=== PATIENT | female | born 1980 | race Caucasian/White ===

== ENCOUNTER 2016-08-07 20:47 | Emergency (ER) | payer OTHER ==
[~2016-08-07] VITALS: Ht 160 cm; Wt 112.0 kg
[~2016-08-07 20:47] MED LIST: ALBU17AE3 IH; ALPR1TAB2 PO; AMIT25TA9 PO; AMOX-358 PO; AMOX500C2 PO; ARIP5TAB12 PO; AZIT-21 PO; CEFD300C PO; CEFD300C3 PO; CEPH500C PO; CETI10CA PO; CIPR-225 PO; CIPR100T; CIPR500T4 PO; CLCX200C; COLE1TAB PO; CPR500T PO; CYCL10TA9 PO; D-ME118S33 PO; D50KC PO; DICY20TA57 PO; DOCU100T7 PO; FERR-57 PO; FEXO180T PO; FLUT16SP22 NS; HYDR115S2 PO; HYDR1TAB PO; HYDR1TAB66 PO; HYDR1TAB8 PO; HYOS0.1217 PO; IBP200T PO; IBP800T PO; IBUP-1780 PO; KETO10TA PO; LEVO500T2 PO; LISI-552 PO; LISI10TA PO; LISI40TA PO; LORA1TAB59 PO; LRT10T PO; MECL-124 PO; MELO15TA14 PO; METF-144; METH4TAB PO; MNTL10T PO; MONT10TA21 PO; NAPR-243 PO; NITR-65 PO; OMEP40CA36 PO; ONDA-42 SL; ONDA4TAB8 PO; ONDA8TAB9 PO; OXYC10TA8; OXYM15MI4 NS; PHEN-639 PO; PHEN100T26 PO; PHEN200T27 PO; PNT40TEC PO; PRD20T PO; PRM25T PO; PROM25SU43 RC; RANI75TA30 PO; ROPI1TAB2 PO; SUCR1TAB PO; SULF-222 PO; SULF1TAB35 PO; SULF1TAB38 PO; TAMS0.4C98 PO; TRAM-21 PO; TRAM-42 PO; TRAM50TA2 PO; TRM50T PO; TRZ50T PO; VORT10TA PO; [UNRECOGNIZED DRUG - CODE] PO
[2016-08-07] MEDS ORDERED: RISP1TAB3 PO (21:02)
[2016-08-07] MEDS ORDERED: OMEP20TA7 PO (21:02)
[2016-08-07] MEDS ORDERED: METF500T4 PO (21:02)
[2016-08-07] MEDS ORDERED: METO-351 PO (21:02)
--- NOTE | 2016-08-07 21:10 | ED Abdominal Pain ---
General Chief Complaint: Abdominal/GI Problems Stated Complaint: ABD PAIN Nursing Triage Note: "ulcer pain" worse today Sepsis Screen: No Definite Risk Source of Information: Patient Exam Limitations: No Limitations History of Present Illness Time Seen By Provider: 21:08 Initial Comments To ER with reports of epigastric abdominal pain. This is been going on for about 2 months. She denies any bowel changes but reports nausea and vomiting. She states that she ate dinner several hours ago and still feels as though she is full. She is diabetic. She was told at a hospital in [place] that she had ulcers. She's been taking medication for that but she ultimately stopped because she did not feel that they were helping and in fact were making her worse. Timing/Duration: Other Severity/Quality: Moderate Location: Epigastric Radiation: No Radiation Associated Symptoms: Nausea/Vomiting Allergies and Home Medications Allergies Coded Allergies: azithromycin (Verified Allergy, Unknown, 08/05/15) aspirin (Verified Adverse Reaction, Intermediate, VOMITING, 10/26/11) acetaminophen (Unverified Adverse Reaction, Unknown, 07/26/14) PT IS NOT SUPPOSE TO TAKE TYLENOL DUE TO LIVER DISEASE Home Medications Alprazolam 1 Mg Tablet 1 MG PO QID (Reported) Lisinopril 20 Mg Tablet #30 20 MG PO DAILY Prescribed by: JESSICA REID on 09/09/152156 Metformin HCl 500 Mg Tablet #120 2 TAB PO BID (Reported) Metoprolol Succinate 25 Mg Tab.er.24h Unknown Dose PO DAILY (Reported) Omeprazole 20 Mg Tablet.dr 20 MG PO UD (Reported) Risperidone 1 Mg Tablet #30 1 TAB PO UD (Reported) Review of Systems Constitutional: see HPINo chills, No fever EENTM: No Symptoms Reported Respiratory: No Symptoms Reported Cardiovascular: No Symptoms Reported Gastrointestinal: See HPI Abdominal PainDenies Constipated, Denies Diarrhea, Nausea Vomiting Musculoskeletal: no symptoms reported Skin: no symptoms reported Psychiatric/Neurological: No Symptoms Reported Endocrine: No Symptoms Reported Past Gkrtatj-Rlwwka-Rbjfcc Hx Patient Social History Alcohol Use: Denies Use Recreational Drug Use: No Smoking Status: Never a Smoker Recent Foreign Travel: No Contact w/Someone Who Travel: No Recent Infectious Disease Expo: No Recent Hopitalizations: No Physical Abuse Screen: No Sexual Abuse: No Immunizations Up To Date Tetanus Booster (TDap): Less than 5yrs Date of Pneumonia Vaccine: May 03, 2012 Date of Influenza Vaccine: May 03, 2012 Seasonal Allergies Seasonal Allergies: Yes Surgeries HX Surgeries: Yes (SKIN GRAFT FOR GREWAL, D&C, LAPAROSCOPY, ABSCESS I&D) Surgeries: Adenoidectomy, Appendectomy, Section, Hysterectomy, Oophorectomy, Tonsillectomy Respiratory Hx Respiratory Disorders: Yes Respiratory Disorders: Asthma Cardiovascular Hx Cardiac Disorders: Yes Cardiac Disorders: High Cholesterol, Hypertension Neurological Hx Neurological Disorders: Yes Neurological Disorders: Headaches /Migraines Reproductive System : No Hx Reproductive Disorders: Yes (OVARIAN CYST, DYSMENORRHEA) Sexually Transmitted Disease: No Female Reproductive Disorders: Menstrual Problems, 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 Genitourinary Hx Genitourinary Disorders: Yes Genitourinary Disorders: UTI-Chronic Gastrointestinal Hx Gastrointestinal Disorders: Yes (MORALES (FATTY LIVER)) Gastrointestinal Disorders: Gastroesophageal Reflux, Ulcer Musculoskeletal Hx Musculoskeletal Disorders: Yes (RESTLESS LEG SYNDROME, SCIATICA) Musculoskeletal Disorders: Degenerate Disk Disease, Arthritis, Chronic Back Pain Endocrine Hx Endocrine Disorders: Yes (HYPER PARATHYROID DISEASE, OBESITY) Endocrine Disorders: Parathyroid Disease, Diabetes, Non-Insulin dep HEENT HX ENT Disorders: No Cancer Hx Cancer: No Psychosocial Hx Psychiatric Problems: Yes Behavioral Health Disorders: Anxiety, Bipolar, Depression Integumentary HX Skin/Integumentary Disorder: No Blood Transfusions Hx Blood Disorders: No Adverse Reaction to a Blood Tr: No Family Medical History Significant Family History: No Pertinent Family Hx Physical Exam Vital Signs VS - Last 72 Hours, by Label 08/07/16 21:02 Temp 97.4 Pulse 76 Resp 16 B/P 131/72 Pulse Ox 98 O2 Delivery Room Air Capillary Refill : Less Than 3 Seconds General Appearance: WD/WN no apparent distress obese HEENT: PERRL/EOMI normal ENT inspection Neck: non-tender full range of motion Respiratory: no respiratory distress no accessory muscle use Gastrointestinal: normal bowel sounds soft tenderness (epigastric) Extremities: normal range of motion non-tender Neurologic/Psychiatric: alert normal mood/affect oriented x 3 Skin: normal color warm/dry Progress/Results/Core Measures Results/Orders Lab Results Laboratory Tests Test 08/07/16 21:05 Range/Units Alanine Aminotransferase (ALT/SGPT) 43 0-55 U/L Albumin 4.2 3.2-4.5 G/DL Alkaline Phosphatase 75 40-136 U/L Amylase Level 50 25-125 U/L Anion Gap 8 5-14 MMOL/L Aspartate Amino Transf (AST/SGOT) 30 5-34 U/L BUN/Creatinine Ratio 12 Basophils # (Auto) 0.0 0.0-0.1 10^3/uL Basophils (%) (Auto) 1 0-10 % Blood Urea Nitrogen 9 7-18 MG/DL Calcium Level 9.9 8.5-10.1 MG/DL Carbon Dioxide Level 26 21-32 MMOL/L Chloride Level 107 98-107 MMOL/L Creatinine 0.75 0.60-1.30 MG/DL Eosinophils # (Auto) 0.3 0.0-0.3 10^3/uL Eosinophils (%) (Auto) 5 0-10 % Estimat Glomerular Filtration Rate > 60 Glucose Level 118 H 70-105 MG/DL Hematocrit 40 35-52 % Hemoglobin 13.8 11.5-16.0 G/DL Lipase 62 8-78 U/L Lymphocytes # (Auto) 2.2 1.0-4.0 X 10^3 Lymphocytes (%) (Auto) 37 12-44 % Mean Corpuscular Hemoglobin 30 25-34 PG Mean Corpuscular Hemoglobin Concent 35 32-36 G/DL Mean Corpuscular Volume 87 80-99 FL Mean Platelet Volume 9.7 7.4-10.4 FL Monocytes # (Auto) 0.4 0.0-1.0 X 10^3 Monocytes (%) (Auto) 7 0-12 % Neutrophils # (Auto) 2.9 1.8-7.8 X 10^3 Neutrophils (%) (Auto) 50 42-75 % Platelet Count 181 130-400 10^3/uL Potassium Level 4.2 3.6-5.0 MMOL/L Red Blood Count 4.56 4.35-5.85 10^6/uL Red Cell Distribution Width 12.9 10.0-14.5 % Sodium Level 141 135-145 MMOL/L Total Bilirubin 0.5 0.1-1.0 MG/DL Total Protein 6.9 6.4-8.2 G/DL White Blood Count 5.8 4.3-11.0 10^3/uL My Orders Orders-BETHANY PRIETO PSYCHOLOGY TECHNICIAN Cbc With Automated Diff (08/07/16 21:07) Comprehensive Metabolic Panel (08/07/16 21:07) Lipase (08/07/16 21:07) Amylase (08/07/16 21:07) Saline Lock/Iv-Start (08/07/16 21:07) Metoclopramide Injection (Reglan Injecti (08/07/16 21:15) Antacid Suspension (Mylanta Suspension (08/07/16 21:15) Lidocaine 2% Viscous 15 Ml (Xylocaine Vi (08/07/16 21:15) Hemoglobin A1c (08/07/16 21:14) Thyroid Stimulating Hormone (08/07/16 21:14) Free T4 (Free Thyroxine) (08/07/16 21:14) Medications Given in ED Current Medications Medications Dose Ordered Sig/Ronna Route Start Time Stop Time Status Last Admin Dose Admin Al Hydrox/Mg Hydrox/Simethicone 30 ml ONCE ONCE PO 08/07/16 21:15 08/07/16 21:16 DC 08/07/16 21:13 30 ML Lidocaine HCl 5 ml ONCE ONCE PO 08/07/16 21:15 08/07/16 21:16 DC 08/07/16 21:13 5 ML Metoclopramide HCl 10 mg ONCE ONCE IVP 08/07/16 21:15 08/07/16 21:16 DC 08/07/16 21:13 10 MG Vital Signs/I&O Vital Sign - Last 12Hours 08/07/16 21:02 Temp 97.4 Pulse 76 Resp 16 B/P 131/72 Pulse Ox 98 O2 Delivery Room Air Blood Pressure Mean: 91 Departure Communication Progress Notes I would strongly consider a diagnosis of gastroparesis given her diabetes and epigastric discomfort after eating. However showing follow-up with primary care to rule out gallbladder etiology Impression Impression: Primary Impression: Epigastric abdominal pain Disposition: HOME, SELF-CARE Condition: Stable Departure-Patient Inst. Decision time for Depature: 22:03 Referrals: [facility] (PCP/Family) Primary Care Physician Patient Instructions: No Instuctions Given Add. Discharge Instructions: 1. You need further evaluation for the cause of your persistent pain. Your gallbladder needs to be evaluated with a HIDA scan or Ultrasound to be arranged by her primary care provider. You may also want to see a surgeon to discuss having an upper GI scope to look for ulcers. If all those are negative. Diagnosis of diabetic gastroparesis (a complication of diabetes that slows the passage of food through your stomach and intestines) should be considered. All discharge instructions reviewed with patient and/or family. Voiced understanding. BETHANY PRIETO PSYCHOLOGY TECHNICIAN Aug 07, 2016 21:10
[2016-08-07 21:13] LABS: BASOPHILS % (AUTO) 1 % (0-10); EOSINOPHILS # (AUTO) 0.3 10^3/uL (0.0-0.3); EOSINOPHILS % (AUTO) 5 % (0-10); LYMPHOCYTES # (AUTO) 2.2 X 10^3 (1.0-4.0); LYMPHOCYTES % (AUTO) 37 % (12-44); MEAN CORPUSCULAR HEMOGLOBIN 30 PG (25-34); MEAN CORPUSCULAR HGB CONC 35 G/DL (32-36); MEAN CORPUSCULAR VOLUME 87 FL (80-99); MEAN PLATELET VOLUME 9.7 FL (7.4-10.4); MONOCYTES # (AUTO) 0.4 X 10^3 (0.0-1.0); MONOCYTES % (AUTO) 7 % (0-12); NEUTROPHILS # (AUTO) 2.9 X 10^3 (1.8-7.8); NEUTROPHILS % (AUTO) 50 % (42-75); PLATELET COUNT 181 10^3/uL (130-400); RED BLOOD COUNT 4.56 10^6/uL (4.35-5.85); RED CELL DISTRIBUTION WIDTH 12.9 % (10.0-14.5); WHITE BLOOD COUNT 5.8 10^3/uL (4.3-11.0)
[2016-08-07] MEDS ORDERED: METOCLOPRAMIDE INJ 10 MG/2 ML (REGLAN) IVP ONE (21:15)
[2016-08-07] MEDS ORDERED: ANTACID SUSP 30 ML UDC (MYLANTA) PO ONE (21:15)
[2016-08-07] MEDS ORDERED: LIDOCAINE 2% VISCOUS 15 ML UDC PO ONE (21:15)
[2016-08-07 21:54] LABS: ALANINE AMINOTRANSFERASE 43 U/L (0-55); ALBUMIN 4.2 G/DL (3.2-4.5); AMYLASE 50 U/L (25-125); ANION GAP 8 MMOL/L (5-14); ASPARTATE AMINO TRANSFERASE 30 U/L (5-34); BILIRUBIN,TOTAL 0.5 MG/DL (0.1-1.0); BLOOD UREA NITROGEN 9 MG/DL (7-18); BUN/CREATININE RATIO 12; CALCIUM 9.9 MG/DL (8.5-10.1); CARBON DIOXIDE 26 MMOL/L (21-32); CHLORIDE 107 MMOL/L (98-107); CREATININE SERUM 0.75 MG/DL (0.60-1.30); GFR ESTIMATED > 60; GLUCOSE 118 MG/DL (70-105); LIPASE 62 U/L (8-78); POTASSIUM 4.2 MMOL/L (3.6-5.0); SODIUM 141 MMOL/L (135-145); TOTAL PROTEIN 6.9 G/DL (6.4-8.2)
[2016-08-07 22:19] LABS: THYROID STIMULATING HORMONE 1.2 UIU/ML (0.35-4.94)
[2016-08-07 22:27] VITALS: BP 121/71
[2016-12-11] MEDS ORDERED: CIPR-225 PO (22:10)
== END 2016-08-07 22:29 | disposition home or self-care (01) ==
LOC: EDUNIT# 20:47 → ER 20:49
DX: R10.13 Epigastric pain (principal); E11.9 Type 2 diabetes mellitus without complications; E66.9 Obesity, unspecified; Z79.84 Long term (current) use of oral hypoglycemic drugs; Z79.899 Other long term (current) drug therapy
CPT/HCPCS: 36415; 80053; 82150; 83036; 83690; 84439; 84443; 85025; 96374

== ENCOUNTER → 2016-08-22 | Outpatient (CLI) | payer OTHER ==
[~2016-08-22] MED LIST changes: +DOXY100C42 PO; +METF1000 PO; +METF500T4 PO; +METO-351 PO; +OMEP20TA7 PO; +PANT40TA2 PO; +RANI-515 PO; +RISP1TAB3 PO; +SUCR1TAB36 PO
--- NOTE | 2016-08-22 13:02 | Diagnostic Imaging Report ---
PROCEDURE: CT abdomen without contrast. TECHNIQUE: Multiple contiguous axial images were obtained through the abdomen without the use of intravenous contrast. INDICATION: Upper abdominal pain and vomiting. FINDINGS: The lung bases appear clear. No hiatal hernia. The liver, the gallbladder, the spleen, the pancreas, and the adrenal glands appear unremarkable for an unenhanced exam. The kidneys demonstrate no hydronephrosis or stones. The osseous structures appear grossly unremarkable. The visualized portions of the bowel loops and colon appear unremarkable. No fluid collection or free fluid is seen in the abdomen. IMPRESSION: Unremarkable exam. Dictated by: Dictated on workstation # [id number]
== END ==
LOC: RAD 11:43
PROVIDERS: ATTEND Nurse Practitioner Adult Health
DX: K21.9 Gastro-esophageal reflux disease without esophagitis (principal)
CPT/HCPCS: 74150

== ENCOUNTER 2016-08-26 19:40 | Outpatient (CLI) | payer OTHER ==
[~2016-08-26 19:40] MED LIST changes: -DOXY100C42 PO; -METF1000 PO; -PANT40TA2 PO; -RANI-515 PO; -SUCR1TAB36 PO
[2016-12-11] MEDS ORDERED: CIPR-225 PO (22:10)
== END 2016-08-27 06:35 | disposition home or self-care (01) ==
LOC: SLEEP 19:40
PROVIDERS: ATTEND Internal Medicine Cardiovascular Disease
DX: G47.33 Obstructive sleep apnea (adult) (pediatric) (principal); I10 Essential (primary) hypertension
CPT/HCPCS: 95810

== ENCOUNTER 2016-09-05 14:00 | Outpatient (CLI) | payer OTHER ==
[~2016-09-05] VITALS: Ht 160 cm; Wt 112.0 kg
[2016-09-05] MEDS ORDERED: METF1000 PO (14:15)
[2016-09-05] MEDS ORDERED: RANI-515 PO (14:15)
[2016-09-05] MEDS ORDERED: SUCR1TAB PO (14:15)
[2016-12-11] MEDS ORDERED: CIPR-225 PO (22:10)
== END 2016-09-05 14:40 ==
LOC: PREOP 14:00
PROVIDERS: ATTEND Surgery
DX: Z01.818 Encounter for other preprocedural examination (principal); R10.13 Epigastric pain; R11.10 Vomiting, unspecified

== ENCOUNTER 2016-09-09 09:28 | Day surgery (SDC) | payer OTHER ==
[~2016-09-09] VITALS: Ht 160 cm; Wt 112.0 kg
[~2016-09-09 09:28] MED LIST changes: +METF1000 PO; +RANI-515 PO
[2016-09-09] MEDS ORDERED: NS IV 1000 ML 1,000 ML ONE (09:33)
[2016-09-09] MEDS ORDERED: NS IV 1000 ML 1,000 ML IV STA (09:56)
[2016-09-09] MEDS ORDERED: HURRICAINE EXT TUBE (BENZOCAINE) XX PRN (10:00)
[2016-09-09] MEDS ORDERED: fentaNYL INJECTION 100 MCG/2 ML AMP IVP PRN (10:00)
[2016-09-09] MEDS ORDERED: MIDAZOLAM 2 MG/2 ML (VERSED) VIAL IVP PRN (10:00)
[2016-09-09] MEDS ORDERED: LIDOCAINE JELLY 2% (XYLOCAINE) 5 ML TUBE MM PRN (10:00)
[2016-09-09] MEDS ORDERED: FLUMAZENIL (ROMAZICON) 0.1 MG/ML 5 ML VIAL INJ PRN (10:00)
[2016-09-09] MEDS ORDERED: NALOXONE 0.4 MG/ML 1 ML (NARCAN) VIAL IVP PRN (10:00)
[2016-09-09 10:12] VITALS: BP 137/83
--- NOTE | 2016-09-09 10:29 | Progress Note-Pre Operative ---
Pre-Operative Progress Note H&P Reviewed The H&P was reviewed, patient examined and no changes noted. Date H&P Reviewed: Sep 09, 2016 Time H&P Reviewed: 10:28 Pre-Operative Diagnosis: epigastric abdominal pain, nausea vomiting, recent treatmen for h pylori HEYDI TORRES DO Sep 09, 2016 10:29 am
[2016-09-09] MEDS ORDERED: PANT40TA2 PO ×2 (10:58→11:59)
[2016-09-09] MEDS ORDERED: proPOfol 200 MG/20 ML (DIPRIVAN) VIAL IV ONE (11:43)
[2016-09-09] MEDS ORDERED: MIDAZOLAM 2 MG/2 ML (VERSED) VIAL ONE (11:44)
[2016-09-09] MEDS ORDERED: HURRICAINE EXT TUBE (BENZOCAINE) ONE (11:54)
--- NOTE | 2016-09-09 11:58 | Progress Note-Post Operative ---
Post-Operative Progess Note Pre-Operative Diagnosis epigastric abdominal pain, nausea vomiting, recent treatmen for h pylori Post-Operative Diagnosis gastritis Post-Op Procedure Note Date of Procedure: Sep 09, 2016 Name of Procedure: egd c biopsies Procedure Note/Findings see note Anesthesia Type per air tester Estimated blood loss (mL): none Specimen(s) collected antrum, ge junction HEYDI TORRES DO Sep 09, 2016 11:58 am
[2016-09-09] MEDS ORDERED: SUCR1TAB36 PO (11:59)
--- NOTE | 2016-09-09 11:59 | Discharge Inst-Simple/Standard ---
Discharge Inst-Standard Discharge Medications New, Converted or Re-Newed RX: Transmitted to Pharmacy Patient Instructions/Follow Up Plan of Care/Instructions/FU: Follow up in 2 to 3 weeks Take medication as directed. Activity as Tolerated: Yes Discharge Diet: No Restrictions MAG ESCALONA APRN Sep 09, 2016 11:59
[2016-09-09 12:10] VITALS: BP 118/60
[2016-09-09 12:35] VITALS: BP 136/70
[2016-09-09 12:40] VITALS: BP 136/70
--- NOTE | 2016-09-10 11:55 | PROCEDURE REPORT ---
PROCEDURE PHYSICIAN: HEYDI TORRES DATE OF PROCEDURE: 09/09/2016 PREOPERATIVE DIAGNOSIS: Epigastric abdominal pain, nausea, vomiting, recent treatment for H. pylori. POSTOPERATIVE DIAGNOSIS: Gastritis. PROCEDURE: EGD with biopsies. SURGEON: [place]. ANESTHESIA: Per INTERMODAL DISPATCHER. ESTIMATED BLOOD LOSS: None. COMPLICATIONS: None. SPECIMENS: Antrum and GE junction. INDICATIONS: The patient is a 36-year-old female who has been having epigastric abdominal pain, nausea and vomiting, recent treatment for H. pylori. She understands the risk and benefits of the procedure and wishes to proceed with procedure. Consent was signed on the chart. PROCEDURE: The patient was taken to the endoscopy suite, placed in left lateral recumbent position. Timeout was performed. The scope was inserted in the mouth, down the esophagus, stomach and into the duodenum without difficulty. There were no polyps, masses or ulcerations within the duodenum. The scope was then slowly retracted back into the stomach where it was further insufflated. There are small areas of some erythematous changes of the stomach which biopsy of the antrum was obtained. The scope was then retroflexed. There was no hiatal hernia. There were no polyps, masses, ulcerations visualized. The scope was then slowly retracted back and returned to its normal position. Biopsy of the antrum was obtained. The scope was then slowly retracted back into the esophagus, where at the GE junction there were some erythematous changes present. Biopsy was obtained. This scope was then slowly retracted back noting no other pathology. The scope was slowly withdrawn until completely removed. The patient tolerated the procedure well without any complications and she was taken to recovery room in stable condition. RECOMMENDATIONS: The patient will be placed on Protonix and Carafate. We will have her follow-up on pathology in approximately 3 weeks. If she has any problems prior to that, she should be reevaluated at that time. Job ID: [id number] Dictated Date: 09/09/2016 12:00:37 Yard Cleaner Date: 09/10/2016 11:46:01 / luis alfredo
[2016-12-11] MEDS ORDERED: CIPR-225 PO (22:10)
== END 2016-09-09 12:40 | disposition home or self-care (01) ==
LOC: ENDO 09:28
PROVIDERS: ATTEND Surgery
DX: K29.70 Gastritis, unspecified, without bleeding (principal); E11.9 Type 2 diabetes mellitus without complications; Z79.84 Long term (current) use of oral hypoglycemic drugs
CPT/HCPCS: 82962; 88305

== ENCOUNTER 2016-10-24 19:31 | Emergency (ER) | payer SELFPAY ==
[~2016-10-24] VITALS: Ht 160 cm; Wt 113.4 kg
[~2016-10-24 19:31] MED LIST changes: +PANT40TA2 PO; +SUCR1TAB36 PO
[2016-10-24] MEDS: KETOROLAC 60 MG/2 ML VIAL IM STA (20:02)
[2016-10-24] MEDS: diphenhydrAMINE 50 MG/ML INJ (BENADRYL) IM ONE (20:03)
--- NOTE | 2016-10-24 20:10 | ED Cough/URI ---
General Chief Complaint: Head/Cervical Problems Stated Complaint: SORE THROAT, MIGRAINE Nursing Triage Note: Pt with FINK since Thursday with sore throat and cough for add'l sx. Source: patient Exam Limitations: no limitations History of Present Illness Time seen by provider: 19:30 Initial Comments A 46-year-old female who presents with a headache 4 days, along with a sore throat, cough, body aches and generalized malaise. Patient states she's tried some ibuprofen with minimal relief. Is unsure if she has fever. thinks possibly she might be having a migraine. She denies any nausea, vomiting, diarrhea, photophobia. Patient does report some tightness in her chest with her cough especially on the right side. Allergies and Home Medications Allergies Coded Allergies: azithromycin (Verified Allergy, Unknown, 09/05/16) aspirin (Verified Adverse Reaction, Intermediate, VOMITING, 09/05/16) acetaminophen (Unverified Adverse Reaction, Unknown, 09/05/16) PT IS NOT SUPPOSE TO TAKE TYLENOL DUE TO LIVER DISEASE Home Medications Alprazolam 1 Mg Tablet, 1 MG PO TID, (Reported) Doxycycline Monohydrate 100 Mg Capsule, 100 MG PO BID for 7 Days Prescribed by: JOIE RO on 10/24/162038 Lisinopril 20 Mg Tablet, 20 MG PO DAILY, #30 Ref 0 Prescribed by: JESSICA REID on 09/09/152156 Metformin HCl 1,000 Mg Tablet, 1,000 MG PO BID, (Reported) Metoprolol Succinate 25 Mg Tab.er.24h, Unknown Dose PO DAILY, (Reported) Pantoprazole Sodium 40 Mg Tablet.dr, 40 MG PO DAILY, #60 Ref 2 Prescribed by: MAG TAMEZ on 09/09/16 1159 Ranitidine HCl 150 Mg Tablet, 150 MG PO BID, (Reported) Risperidone 1 Mg Tablet, 1 TAB PO UD, #30 (Reported) Sucralfate 1 Gm Tablet, 1 GM PO ACHS, (Reported) Sucralfate 1 Gm Tablet, 1 GM PO QID, #120 Prescribed by: MAG TAMEZ on 09/09/16 1159 Constitutional: see HPI EENTM: throat pain, No blurred vision, No ear pain, No tearing, No vision loss Respiratory: cough Cardiovascular: see HPI Gastrointestinal: No abdominal pain, No nausea, No vomiting Genitourinary: no symptoms reported Skin: no symptoms reported Psychiatric/Neurological: No Symptoms Reported Hematologic/Lymphatic: No Symptoms Reported Past Kdgplwm-Iebgen-Cvbxvy Hx Patient Social History Alcohol Use: Denies Use Recreational Drug Use: No Smoking Status: Never a Smoker Recent Foreign Travel: No Contact w/Someone Who Travel: No Recent Infectious Disease Expo: No Recent Hopitalizations: No Immunizations Up To Date Tetanus Booster (TDap): Less than 5yrs Date of Pneumonia Vaccine: May 03, 2012 Date of Influenza Vaccine: May 03, 2012 Seasonal Allergies Seasonal Allergies: Yes Surgeries HX Surgeries: Yes (SKIN GRAFT FOR GREWAL, D&C, LAPAROSCOPY, ABSCESS I&D) Surgeries: Adenoidectomy, Appendectomy, Section, Hysterectomy, Oophorectomy, Tonsillectomy Respiratory Hx Respiratory Disorders: Yes Respiratory Disorders: Asthma Cardiovascular Hx Cardiac Disorders: Yes Cardiac Disorders: Heart Murmur, High Cholesterol, Hypertension Neurological Hx Neurological Disorders: Yes Neurological Disorders: Headaches /Migraines Reproductive System Hx Reproductive Disorders: No Sexually Transmitted Disease: No HIV/AIDS: No Female Reproductive Disorders: Menstrual Problems, 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 Genitourinary Hx Genitourinary Disorders: Yes Genitourinary Disorders: Kidney Stones, UTI-Chronic Gastrointestinal Hx Gastrointestinal Disorders: Yes (MORALES (FATTY LIVER)) Gastrointestinal Disorders: Gastroesophageal Reflux, Ulcer Musculoskeletal Hx Musculoskeletal Disorders: Yes (RESTLESS LEG SYNDROME, SCIATICA) Musculoskeletal Disorders: Degenerate Disk Disease, Arthritis, Chronic Back Pain Endocrine Hx Endocrine Disorders: Yes (HYPER PARATHYROID DISEASE, OBESITY) Endocrine Disorders: Parathyroid Disease, Diabetes, Non-Insulin dep HEENT HX ENT Disorders: Yes (GLASSES) Loss of Vision: Bilateral Hearing Impairment: Denies Cancer Hx Cancer: No Psychosocial Hx Psychiatric Problems: Yes Behavioral Health Disorders: Anxiety, Bipolar, Depression Integumentary HX Skin/Integumentary Disorder: No Blood Transfusions Hx Blood Disorders: No Adverse Reaction to a Blood Tr: No (HAS HAD BLOOD WITH NO PROBLEM) Reviewed Nursing Assessment Reviewed/Agree w Nursing PMH: Yes Family Medical History Significant Family History: No Pertinent Family Hx Physical Exam Vital Signs Vital Sign - Last 12Hours 10/24/16 19:42 Temp 98.0 Pulse 98 Resp 18 B/P (MAP) 145/111 Pulse Ox 96 O2 Delivery Room Air Capillary Refill : Less Than 3 Seconds General Appearance: no apparent distress Eyes: Bilateral Eye Normal Inspection HEENT: normal ENT inspection, No pharyngeal erythema, No tonsillar exudate Neck: non-tender Respiratory: chest non-tender, lungs clear, normal breath sounds Cardiovascular: regular rate, rhythm, no edema Gastrointestinal: normal bowel sounds, non tender, soft Extremities: normal range of motion Neurologic/Psychiatric: inseam trimmer II-XII nml as tested Skin: normal color, warm/dry Lymphatic: no adenopathy Progress/Results/Core Measures Results/Orders Micro Results Microbiology 10/24/16 Influenza Types A,B Antigen (GRADY) - Final, Complete My Orders Orders - JOIE RO DO Chest Pa/Lat (2 View) (10/24/16 19:54) Influenza A And B Antigens (10/24/16 19:54) Ketorolac Injection (Toradol Injection) (10/24/16 19:54) Diphenhydramine Injection (Benadryl Inje (10/24/16 20:00) Medications Given in ED Current Medications Medications Dose Ordered Sig/Ronna Route Start Time Stop Time Status Last Admin Dose Admin Diphenhydramine HCl 50 mg ONCE ONCE IM 10/24/16 20:00 10/24/16 20:01 DC 10/24/16 20:03 50 MG Vital Signs/I&O Vital Sign - Last 12Hours 10/24/16 10/24/16 10/24/16 10/24/16 19:42 20:02 20:03 20:43 Temp 98.0 98.0 98.0 98.0 Pulse 98 98 Resp 18 18 B/P (MAP) 145/111 Pulse Ox 96 96 O2 Delivery Room Air Blood Pressure Mean: 122 Diagnostic Imaging Diagonstic Imaging: Xray Plain Films/CT/US/NM/MRI: chest Comments ADMIT DATE: 10/24/16/ER Draft Date of Exam:10/24/16 CHEST PA/LAT (2 VIEW) PA and lateral chest compared with a prior study from January 25, 2016 INDICATION: Right-sided chest pain and cough FINDINGS: Compared to the prior examination, there does appear to be some new patchy alveolar infiltrate within the right lower lobe. Lungs otherwise appear clear. There is no effusion. There is no pneumothorax. Heart size and mediastinal contours appear appropriate. No acute osseous abnormality is demonstrated. IMPRESSION: 1. There appear to be some mild patchy atelectasis or infiltrate within the right lower lobe. Reviewed: Reviewed by Me Departure Pneumonia Admission Pseudomonal Risk: No known risk Patient allergy/sensitivity/re: Other Impression Impression: Primary Impression: Lobar pneumonia, unspecified organism Disposition: HOME, SELF-CARE Condition: Stable Departure-Patient Inst. Referrals: JOE JONES DO (PCP) Primary Care Physician GEORGE BELL (Family) Primary Care Physician Patient Instructions: Community-Acquired Pneumonia in Adults Scripts Doxycycline Monohydrate (Doxycycline Monohydrate) 100 Mg Capsule 100 MG PO BID for 7 Days, CAP Prov: JOIE RO DO 10/24/16 JOIE RO DO Oct 24, 2016 20:10
--- NOTE | 2016-10-24 20:24 | Diagnostic Imaging Report ---
PA and lateral chest compared with a prior study from January 25, 2016 INDICATION: Right-sided chest pain and cough FINDINGS: Compared to the prior examination, there does appear to be some new patchy alveolar infiltrate within the right lower lobe. Lungs otherwise appear clear. There is no effusion. There is no pneumothorax. Heart size and mediastinal contours appear appropriate. No acute osseous abnormality is demonstrated. IMPRESSION: 1. There appear to be some mild patchy atelectasis or infiltrate within the right lower lobe. Dictated by: Dictated on workstation # [id number]
[2016-10-24] MEDS ORDERED: DOXY100C42 PO (20:39)
[2016-10-24 20:43] VITALS: BP 151/95
--- OUTSIDE RECORDS SUMMARY | 2016-11-09 04:13 | XMS REPORT ---
Author Author ORQUIDEA VALDIVIA [facility] e[employer] Address Unknown Phone Unavailable Care Team Providers Care Biomass Power Plant Manager Name Role Phone ORQUIDEA VALDIVIA Unavailable Allergies No Known Allergies Problems Problem Type Condition Code Onset Dates Condition Status Problem Dysphagia, unspecified 787.20 Active Problem Hidradenitis 705.83 Active Problem Esophageal reflux 530.81 Active Problem Insulin resistance 277.7 Active Problem Hypertension 401.9 Active Problem Major depressive disorder, recurrent episode, moderate F33.1 Active Problem Lumbago 724.2 Active Problem Unspecified backache 724.5 Active Problem Hyperlipidemia 272.4 Active Problem Pain in thoracic spine 724.1 Active Assessment Major depressive disorder, recurrent episode, moderate F33.1 Active Problem Insomnia, unspecified 780.52 Active Problem Allergic rhinitis due to pollen 477.0 Active Problem Palpitations 785.1 Active Medications No Known Medications Procedures Procedure Coding System Code Date Psychotherapy, patient &/family, 45 minutes, established patient CPT-4 34991 Jul 11, 2015 Results No Known Results Summary Purpose eClinicalWorks Submission
--- OUTSIDE RECORDS SUMMARY | 2016-11-09 04:13 | XMS REPORT ---
Author Author ADRIAN BUCK Organization e[employer] Address Unknown Phone Unavailable Care Team Providers Care Probation And Parole Officer Name Role Phone ADRIAN BUCK CP Unavailable Allergies No Known Allergies Problems Problem Type Condition Code Onset Dates Condition Status Problem Major depressive disorder, recurrent episode, moderate F33.1 Active Assessment Abnormal serum enzyme level, unspecified R74.9 Active Problem Essential hypertension I10 Active Problem Essential hypertension, hypertension with unspecified goal I10 Active Problem Hyperlipidemia E78.5 Active Problem Insulin resistance E88.81 Active Problem Gastroesophageal reflux disease without esophagitis K21.9 Active Problem Mixed hyperlipidemia E78.2 Active Problem Type 2 diabetes mellitus without complication E11.9 Active Medications No Known Medications Results No Known Results Summary Purpose eClinicalWorks Submission
--- OUTSIDE RECORDS SUMMARY | 2016-11-09 04:13 | XMS REPORT ---
Author Author ORQUIDEA VALDIVIA [facility] eClinical[employer] Address Unknown Phone Unavailable Care Team Providers Care Calender Roll Operator Name Role Phone ORQUIDEA VALDIVIA Unavailable Allergies No Known Allergies Problems Problem Type Condition Code Onset Dates Condition Status Problem Major depressive disorder, recurrent episode, moderate F33.1 Active Assessment Major depressive disorder, recurrent episode, moderate F33.1 Active Problem Essential hypertension I10 Active Problem Essential hypertension, hypertension with unspecified goal I10 Active Problem Hyperlipidemia E78.5 Active Problem Insulin resistance E88.81 Active Problem Gastroesophageal reflux disease without esophagitis K21.9 Active Problem Mixed hyperlipidemia E78.2 Active Problem Type 2 diabetes mellitus without complication E11.9 Active Medications No Known Medications Procedures Procedure Coding System Code Date Psychotherapy, patient &/family, 45 minutes, established patient CPT-4 12198 November 16, 2015 Results No Known Results Summary Purpose eClinicalWorks Submission
--- OUTSIDE RECORDS SUMMARY | 2016-11-09 04:13 | XMS REPORT ---
Author Author ORQUIDEA VALDIVIA [facility] eClinicalWorks Address Unknown Phone Unavailable Care Team Providers Care Instructor Wastewater Treatment [employer] Name Role Phone ORQUIDEA VALDIVIA Unavailable Allergies [...] patient &/family, 45 minutes, established patient CPT-4 70979 Sep 06, 2015 Results No Known Results Summary Purpose eClinicalWorks Submission
--- OUTSIDE RECORDS SUMMARY | 2016-11-09 04:15 | XMS REPORT ---
Author Author ORQUIDEA VALDIVIA [facility] eClinicalWorks Address Unknown Phone Unavailable Care Team Providers Care Cap And Stud Machine Operator Name Role Phone ORQUIDEA VALDIVIA Unavailable [...] patient &/family, 45 minutes, established patient CPT-4 18453 May 22, 2015 Results No Known Results Summary Purpose eClinicalWorks Submission
--- OUTSIDE RECORDS SUMMARY | 2016-11-09 04:15 | XMS REPORT ---
Author Author SEVEN BETANCOURT [facility] eClinicalWorks Address Unknown Phone Unavailable Care Team Providers Care Traffic Rate Computer Name Role Phone SEVEN BETANCOURT Unavailable Allergies No Known Allergies Problems Problem Type Condition Code Onset Dates Condition Status Problem Insulin resistance E88.81 Active Problem Mixed hyperlipidemia E78.2 Active Problem Type 2 diabetes mellitus without complication E11.9 Active Problem Major depressive disorder, recurrent episode, moderate F33.1 Active Problem Gastroesophageal reflux disease without esophagitis K21.9 Active Problem Abnormal serum enzyme level, unspecified R74.9 Active Problem Palpitations R00.2 Active Problem Intractable episodic tension-type headache G44.211 Active Problem Essential hypertension I10 Active Problem Essential hypertension, hypertension with unspecified goal I10 Active Problem Mood disorder F39 Active Problem Hyperlipidemia E78.5 Active Medications Medication Code System Code Instructions Start Date End Date Status Dosage Trintellix [facility] [address]-57 10 mg Orally Once a day May 21, 2016 1 tablet Results No Known Results Summary Purpose eClinicalWorks Submission
--- OUTSIDE RECORDS SUMMARY | 2016-11-09 04:15 | XMS REPORT ---
Author Author BROOKLYNN PATRICK [facility] eClinicalWorks Address Unknown Phone Unavailable Care Team Providers Care Research Compliance Specialist Name Role Phone BROOKLYNN PATRICK CP Unavailable Allergies No Known Allergies Problems Problem Type Condition Code Onset Dates Condition Status Problem Insulin resistance E88.81 Active Problem Mixed hyperlipidemia E78.2 Active Problem Type 2 diabetes mellitus without complication E11.9 Active Problem Abnormal serum enzyme level, unspecified R74.9 Active Problem Palpitations R00.2 Active Problem Intractable episodic tension-type headache G44.211 Active Problem Essential hypertension I10 Active Problem Essential hypertension, hypertension with unspecified goal I10 Active Problem Mood disorder F39 Active Problem Hyperlipidemia E78.5 Active Assessment Mood disorder F39 Active Assessment Major depressive disorder, recurrent episode, moderate F33.1 Active Problem Major depressive disorder, recurrent episode, moderate F33.1 Active Problem Gastroesophageal reflux disease without esophagitis K21.9 Active Medications Medication Code System Code Instructions Start Date End Date Status Dosage Ibuprofen [facility] [address]-92 800 mg October 09, 2014 1 tablet by Oral route 3 times per day PRN Black Cohosh [facility] [address]-94 40 MG Orally Once a day 2 tablets Risperdal [facility] [address]-41 1 MG Orally voucher Once a day May 21, 2016 1 tablet Metformin HCl [facility] [address]-36 1000 MG Orally Twice a day 1 tablet with meals Abilify [facility] [address]-03 5 MG Orally repository Once a day 1 tablet Trintellix [facility] [address]-48 10 MG Orally samples Once a day May 21, 2016 1 tablet Omeprazole [facility] [address]-76 20 mg Orally Once a day May 15, 2016 1 capsule Alprazolam [facility] [address]-68 1 MG TAKE ONE TABLET BY MOUTH THREE TIMES DAILY NEEDED Lisinopril [facility] [address]-36 20 MG Orally Once a day 1 tablet Fish Oil Concentrate [facility] 64[address]152 1000 MG Orally Once a day at bedtime 1 capsule Procedures Procedure Coding System Code Date Office Visit, Est Pt., Level 3 CPT-4 89018 May 21, 2016 Vital Signs Date/Time: May 21, 2016 Cardiac Monitoring Heart Rate 82 bpm Weight 253.3 lbs Height 63 in BMI 44.87 Index Blood Pressure Diastolic 78 mmHg Blood Pressure Systolic 128 mmHg Results No Known Results Summary Purpose eClinicalWorks Submission
--- OUTSIDE RECORDS SUMMARY | 2016-11-11 11:25 | XMS REPORT ---
Author Author ADRIAN BUCK Organization eClinicalWorks Address Unknown Phone Unavailable Care Team Providers Care Video Clerk Name Role Phone ADRIAN BUCK CP Unavailable [...] diabetes mellitus without complication E11.9 Active Medications Medication Code System Code Instructions Start Date End Date Status Dosage Metformin HCl [facility] [address]-98 500 MG Orally Twice a day Sep 18, 2015 2 tablet with meals Results No Known Results Summary Purpose eClinicalWorks Submission
--- OUTSIDE RECORDS SUMMARY | 2016-11-11 11:25 | XMS REPORT ---
Author Author BROOKLYNN PATRICK Organization eClinicalWorks Address Unknown Phone Unavailable Care Team Providers Care Textile Artist Name Role Phone BROOKLYNN PATRICK CP Unavailable [...] Instructions Start Date End Date Status Dosage Alprazolam [facility] [address]-42 1 MG TAKE ONE TABLET BY MOUTH THREE TIMES DAILY NEEDED Results No Known Results Summary Purpose eClinicalWorks Submission
--- OUTSIDE RECORDS SUMMARY | 2016-11-11 11:25 | XMS REPORT ---
Author Author ADRIAN BUCK [facility] eClinicalWorks Address Unknown Phone Unavailable Care Team Providers Care Burnisher And Bumper Name Role Phone ADRIAN BUCK CP Unavailable Allergies No Known Allergies Problems Problem Type Condition ICD-9 Code Onset Dates Condition Status Problem Anxiety state, unspecified 300.00 Active Problem Esophageal reflux 530.81 Active Problem Dysphagia, unspecified 787.20 Active Problem Hypertension 401.9 Active Problem Hyperlipidemia 272.4 Active Problem Insulin resistance 277.7 Active Problem Unspecified backache 724.5 Active Problem Hidradenitis 705.83 Active Problem Pain in thoracic spine 724.1 Active Problem Lumbago 724.2 Active Assessment Hyperlipidemia 272.4 Active Problem Depressive disorder, not elsewhere classified 311 Active Problem Major depressive disorder, recurrent episode, moderate 296.32 Active Problem Generalized anxiety disorder 300.02 Active Problem Insomnia, unspecified 780.52 Active Problem Unspecified episodic mood disorder 296.90 Active Problem Allergic rhinitis due to pollen 477.0 Active Problem Palpitations 785.1 Active Medications Medication Code System Code Instructions Start Date End Date Status Dosage Fish Oil Concentrate [facility] [address] 1000 MG Orally Once a day at bedtime Apr 23, 2015 1 capsule Results No Known Results Summary Purpose eClinicalWorks Submission
--- OUTSIDE RECORDS SUMMARY | 2016-11-11 11:26 | XMS REPORT ---
Author Author HERNÁN AGEE [facility] Address [address] [place] [address] Care Team Providers Care Haz Tech Name Role Phone HERNÁN AGEE Unavailable PROBLEMS Type Condition ICD9-CM Code [id number] Code Onset Dates Condition Status SNOMED Code Problem Mixed hyperlipidemia E78.2 Active 611207604 Problem Essential hypertension I10 Active 79291543 Problem Essential hypertension, hypertension with unspecified goal I10 Active 32265242 Problem Major depressive disorder, recurrent episode, moderate F33.1 Active 909769332 Problem Gastroesophageal reflux disease without esophagitis K21.9 Active 597582295 Problem Insulin resistance E88.81 Active 351168852 Problem Type 2 diabetes mellitus without complication E11.9 Active 56819265 Problem Panic disorder [episodic paroxysmal anxiety] without agoraphobia F41.0 Active 39552956 Problem Intractable episodic tension-type headache G44.211 Active 714605873 Problem Mood disorder F39 Active 00392976 Problem Hyperlipidemia E78.5 Active 63800971 Problem Abnormal serum enzyme level, unspecified R74.9 Active 075111435 Problem Palpitations R00.2 Active 35586255 ALLERGIES Unknown Allergies SOCIAL HISTORY No smoking Hx information available PLAN OF CARE VITAL SIGNS MEDICATIONS Medication Instructions Dosage Frequency Start Date End Date Duration Status Bismuth Subsalicylate 262 MG Orally 4 times a day 2 tablets 6h Jun, Jul, 14 days Active Omeprazole 20 mg Orally 2 times a day 1 capsule 12h Jun, 14 days Active Doxycycline Hyclate 100 MG Orally every 12 hrs 1 capsule 12h Jun, Jul, 14 days Active Metronidazole 250 MG Orally 4 times a day 1 tablet 6h Jun,Jul 14 days Active RESULTS No Results PROCEDURES No Known procedures IMMUNIZATIONS No Known Immunizations
--- OUTSIDE RECORDS SUMMARY | 2016-11-11 11:26 | XMS REPORT ---
Author Author ADRIAN BUCK [facility] eClinicalWorks Address Unknown Phone Unavailable Care Team Providers Care Digital Court Reporter Name Role Phone ADRIAN BUCK Unavailable Allergies, Adverse Reactions, Alerts Substance Reaction Event Type Zithromax Z-urban vomiting Drug Allergy Diltiazem HCl tachycardia Drug Allergy Aspirin nausea and vomiting Drug Allergy Problems Problem Type Condition Code Onset Dates Condition Status Assessment Essential hypertension I10 Active Problem Major depressive disorder, recurrent episode, moderate F33.1 Active Assessment Type 2 diabetes mellitus without complication E11.9 Active Assessment Mixed hyperlipidemia E78.2 Active Problem Essential hypertension I10 Active Problem Essential hypertension, hypertension with unspecified goal I10 Active Problem Hyperlipidemia E78.5 Active Problem Insulin resistance E88.81 Active Problem Gastroesophageal reflux disease without esophagitis K21.9 Active Problem Mixed hyperlipidemia E78.2 Active Problem Type 2 diabetes mellitus without complication E11.9 Active Medications Medication Code System Code Instructions Start Date End Date Status Dosage Lovastatin [facility] [address]-17 20 MG Orally Once a day 1 tablet with a meal Fish Oil Concentrate [facility] [address] 1000 MG Orally Once a day at bedtime 1 capsule Brintellix [facility] [address]-68 10 MG Orally repository Once a day January 17, 2015 1 tablet Lisinopril [facility] [address]-22 20 MG Orally Once a day 1 tablet Black Cohosh [facility] [address]-93 40 MG Orally Once a day 2 tablets Albuterol Sulfate [facility] [address]-73 90 mcg/actuation Sep 01, 2014 2 puffs by Inhalation route every 4-6 hours as needed PRN cough or wheezing Abilify [facility] [address]-43 5 MG Orally repository Once a day 1 tablet Alprazolam [facility] [address]-08 1 MG TAKE ONE TABLET BY MOUTH THREE TIMES DAILY NEEDED Metformin HCl [facility] [address]-96 500 MG Orally Twice a day 1 tablet with meals Ranitidine HCl [facility] [address]-94 150 MG Orally Twice a day January 11, 2013 take 1 tablet by Oral route 2 times per day Nishantulair [facility] [address]-83 10 MG Orally Once a day 1 tablet in the evening Grace [facility] [address]-92 2.5 mg Jul 22, 2012 1 tablet by Oral route 1 time per dayPRN Procedures Procedure Coding System Code Date COMPREHEN METABOLIC PANEL CPT-4 16147 Mar 13, 2016 Office Visit, Est Pt., Level 4 CPT-4 29148 Mar 13, 2016 GLYCATED HEMOGLOBIN TEST CPT-4 97024 Mar 13, 2016 VENIPUNCT, ROUTINE* CPT-4 11762 Mar 13, 2016 Vital Signs Date/Time: Mar 13, 2016 Cardiac Monitoring Heart Rate 94 bpm Weight 259.2 lbs Height 63 in BMI 45.91 Index Blood Pressure Diastolic 85 mmHg Blood Pressure Systolic 142 mmHg Results No Known Results Summary Purpose eClinicalWorks Submission
--- OUTSIDE RECORDS SUMMARY | 2016-11-11 11:26 | XMS REPORT ---
Author Author ADRIAN BUCK [facility] eClinicalWorks Address Unknown Phone Unavailable Care Team Providers Care Dairy Clerk Name Role Phone ADRIAN BUCK Unavailable Allergies, Adverse Reactions, Alerts Substance Reaction Event Type Zithromax Z-urban vomiting Drug Allergy Diltiazem HCl tachycardia Drug Allergy Aspirin nausea and vomiting Drug Allergy Problems Problem Type Condition Code Onset Dates Condition Status Problem Gastroesophageal reflux disease without esophagitis K21.9 Active Problem Type 2 diabetes mellitus without complication E11.9 Active Problem Insulin resistance E88.81 Active Problem Palpitations R00.2 Active Problem Mood disorder F39 Active Problem Abnormal serum enzyme level, unspecified R74.9 Active Problem Essential hypertension, hypertension with unspecified goal I10 Active Problem Mixed hyperlipidemia E78.2 Active Problem Hyperlipidemia E78.5 Active Problem Essential hypertension I10 Active Assessment Essential hypertension I10 Active Assessment Abnormal serum enzyme level, unspecified R74.9 Active Assessment Palpitations R00.2 Active Assessment Type 2 diabetes mellitus without complication E11.9 Active Assessment Mixed hyperlipidemia E78.2 Active Problem Major depressive disorder, recurrent episode, moderate F33.1 Active Medications Medication Code System Code Instructions Start Date End Date Status Dosage Fish Oil Concentrate [facility] [address] 1000 MG Orally Once a day at bedtime [address] [facility] [address]-50 5 MG Orally repository Once a day [address] [facility] [address]-40 1 MG TAKE ONE TABLET BY MOUTH THREE TIMES DAILY NEEDED Black Cohosh [facility] [address]-32 40 MG Orally Once a day [address] [facility] [address]-61 150 MG Orally Twice a day January 11, 2013 take 1 tablet by Oral route 2 times per day Lis[address] [facility] [address]-91 20 MG Orally Once a day [address] [facility] [address]-91 500 MG Orally Twice a day 1 tablet with meals Ibuprofen [facility] [address]-18 800 mg October 09, 2014 1 tablet by Oral route 3 times per day PRN Procedures Procedure Coding System Code Date Office Visit, Est Pt., Level 3 CPT-4 39413 May 06, 2016 Vital Signs Date/Time: May 06, 2016 Cardiac Monitoring Heart Rate 76 bpm Weight 256.2 lbs Height 63 in BMI 45.38 Index Blood Pressure Diastolic 76 mmHg Blood Pressure Systolic 128 mmHg Results No Known Results Summary Purpose eClinicalWorks Submission
--- OUTSIDE RECORDS SUMMARY | 2016-11-11 11:26 | XMS REPORT ---
Author Author BROOKLYNN PATRICK [facility] eClinicalWorks Address Unknown Phone Unavailable Care Team Providers Care Bank Sales And Service Manager Name Role Phone BROOKLYNN PATRICK CP Unavailable Allergies, Adverse Reactions, Alerts Substance Reaction Event Type Zithromax Z-urban vomiting Drug Allergy Diltiazem HCl tachycardia Drug Allergy Aspirin nausea and vomiting Drug Allergy Problems Problem Type Condition Code Onset Dates Condition Status Problem Anxiety state, unspecified 300.00 Active Problem Esophageal reflux 530.81 Active Problem Dysphagia, unspecified 787.20 Active Problem Hypertension 401.9 Active Problem Hyperlipidemia 272.4 Active Problem Insulin resistance 277.7 Active Problem Unspecified backache 724.5 Active Problem Hidradenitis 705.83 Active Problem Pain in thoracic spine 724.1 Active Problem Lumbago 724.2 Active Assessment Major depression F32.9 Active Problem Depressive disorder, not elsewhere classified 311 Active Assessment Mood disorder F39 Active Problem Major depressive disorder, recurrent episode, moderate 296.32 Active Problem Generalized anxiety disorder 300.02 Active Problem Insomnia, unspecified 780.52 Active Problem Unspecified episodic mood disorder 296.90 Active Problem Allergic rhinitis due to pollen 477.0 Active Problem Palpitations 785.1 Active Medications Medication Code System Code Instructions Start Date End Date Status Dosage Tramadol HCl [facility] [address]-05 50 MG Orally 2 times a day prn -mut last 30 days 1 -2 tablet as needed Alprazolam [facility] [address]-46 1 MG TAKE ONE TABLET BY MOUTH THREE TIMES DAILY NEEDED Ranitidine HCl [facility] [address]-60 150 MG Orally Twice a day January 11, 2013 take 1 tablet by Oral route 2 times per day Brintellix [facility] [address]-42 10 MG Orally Once a day January 17, [address] [facility] [address]-91 50 MG Orally 1 daily x 5 days then 1 bid Apr 18, [address] [facility] [address]-36 10 MG Orally Once a day 1 tablet in the evening ZyrTEC NDC 0 10 mg oral Once a day November 25, 2013 Sep 04, 2015 1 tablet MetFORMIN HCl ER [facility] [address]-51 500 MG Orally Once a day December 11, 2014 1 tablet with evening meal Lisinopril [facility] [address]-16 40 MG Orally Once a day [address] [facility] [address]-08 800 mg October 09, 2014 1 tablet by Oral route 3 times per day PRN Albuterol Sulfate [facility] [address]-89 90 mcg/actuation Sep 01, 2014 2 puffs by Inhalation route every 4-6 hours as needed PRN cough or wheezing Loratadine [facility] [address]-70 10 MG Orally Once a day November 25, 2013Sep [address] [facility] [address]-35 5 MG Orally Once a day [address] [facility] [address]-63 2.5 mg Jul 22, 2012 1 tablet by Oral route 1 time per dayPRN Fish Oil Concentrate [facility] [address] 1000 MG Orally Once a day at bedtime Apr 23, [address] [facility] [address]-70 12.5 MG Orally Once a day 1 capsule Procedures Procedure Coding System Code Date MH Office Visit, Est Pt., Level 3 CPT-4 61666 May 11, 2015 Vital Signs Date/Time: May 11, 2015 Cardiac Monitoring Heart Rate 92 bpm Weight 255.3 lbs Height 63 in BMI 45.22 Index Blood Pressure Diastolic 100 mmHg Blood Pressure Systolic 140 mmHg Results No Known Results Summary Purpose eClinicalWorks Submission
--- OUTSIDE RECORDS SUMMARY | 2016-11-11 11:27 | XMS REPORT ---
Author Author HERNÁN AGEE [facility] eClinicalWorks Address Unknown Phone Unavailable Care Team Providers Care Wrapper Stemmer Hand Name Role Phone HERNÁN AGEE CP Unavailable Allergies No Known Allergies Problems [...] F39 Active Problem Hyperlipidemia E78.5 Active Medications No Known Medications Results No Known Results Summary Purpose eClinicalWorks Submission
--- OUTSIDE RECORDS SUMMARY | 2016-11-11 11:27 | XMS REPORT ---
Author Author BROOKLYNN PATRICK Organization eClinicalWorks Address Unknown Phone Unavailable Care Team Providers Care Clamp Carrier Operator Name Role Phone BROOKLYNN PATRICK CP Unavailable [...] Start Date End Date Status Dosage Alprazolam [facility] [address]-13 1 MG TAKE ONE TABLET BY MOUTH THREE TIMES DAILY NEEDED Results No Known Results Summary Purpose eClinicalWorks Submission
--- OUTSIDE RECORDS SUMMARY | 2016-11-11 11:27 | XMS REPORT ---
Author Author BROOKLYNN PATRICK [facility] eClinicalWorks Address Unknown Phone Unavailable Care Team Providers Care Contractor Field Hauling Name Role Phone BROOKLYNN PATRICK Unavailable Allergies No Known Allergies Problems Problem [...] Pain in thoracic spine 724.1 Active Problem Insomnia, unspecified 780.52 Active Problem Allergic rhinitis due to pollen 477.0 Active Problem Palpitations 785.1 Active Medications Medication Code System Code Instructions Start Date End Date Status Dosage Abilify [facility] [address]-16 5 MG Orally Once a day 1 tablet Brintellix [facility] [address]-84 10 MG Orally Once a day January 17, 2015 1 tablet Alprazolam [facility] [address]-95 1 MG TAKE ONE TABLET BY MOUTH THREE TIMES DAILY NEEDED Results No Known Results Summary Purpose eClinicalWorks Submission
--- OUTSIDE RECORDS SUMMARY | 2016-11-11 11:27 | XMS REPORT ---
Author Author HERNÁN AGEE [facility] eClinicalWorks Address Unknown Phone Unavailable Care Team Providers Care Coordinator Of Genetic Services Name Role Phone HERNÁN AGEE CP Unavailable Allergies, Adverse Reactions, Alerts Substance [...] F39 Active Problem Hyperlipidemia E78.5 Active Assessment Intractable episodic tension-type headache G44.211 Active Assessment Epigastric pain R10.13 Active Problem Major depressive disorder, recurrent episode, moderate F33.1 Active Problem Gastroesophageal reflux disease without esophagitis K21.9 Active Medications Medication Code System Code Instructions Start Date End Date Status Dosage Tramadol HCl [facility] [address]-39 50 MG Orally every 6 hrs May 10, 2016 1 tablet as needed Ibuprofen [facility] [address]-34 800 mg October 09, 2014 1 tablet by Oral route 3 times per day PRN Abilify [facility] [address]-57 5 MG Orally repository Once a day 1 tablet Omeprazole [facility] [address]-14 20 mg Orally Once a day May 15, 2016 1 capsule Lisinopril [facility] [address]-67 20 MG Orally Once a day 1 tablet Ranitidine HCl [facility] [address]-15 150 MG Orally Twice a day January 11, 2013 take 1 tablet by Oral route 2 times per day Black Cohosh [facility] [address]-26 40 MG Orally Once a day 2 tablets Fish Oil Concentrate [facility] [address] 1000 MG Orally Once a day at bedtime 1 capsule Alprazolam [facility] [address]-87 1 MG TAKE ONE TABLET BY MOUTH THREE TIMES DAILY NEEDED Metformin HCl [facility] [address]-41 500 MG Orally Twice a day 1 tablet with meals Procedures Procedure Coding System Code Date COMPREHEN METABOLIC PANEL CPT-4 47755 May 15, 2016 VENIPUNCT, ROUTINE* CPT-4 55626 May 15, 2016 HELICOBACTER PYLORI CPT-4 17842 May 15, 2016 Office Visit, Est Pt., Level 3 CPT-4 55714 May 15, 2016 Vital Signs Date/Time: May 15, 2016 Cardiac Monitoring Heart Rate 84 bpm Weight 256.0 lbs Height 63 in BMI 45.34 Index Blood Pressure Diastolic 80 mmHg Blood Pressure Systolic 120 mmHg Results Name Result Date Reference Range Unit Abnormality Flag CMP ----Calcium, Serum 10.4 [id number] 8.7-10.2 mg/dL H ----Carbon Dioxide, Total 26 [id number] 18-29 mmol/L ----ALT (SGPT) 74 [id number] 0-32 IU/L H ----Creatinine, Serum 0.70 [id number] 0.57-1.00 mg/dL ----AST (SGOT) 41 [id number] 0-40 IU/L H ----eGFR If NonAfricn Am 113 [id number] >59 mL/min/1.73 ----Alkaline Phosphatase, S 76 [id number] 39-117 IU/L ----eGFR If Africn Am 130 [id number] >59 mL/min/1.73 ----Bilirubin, Total 0.5 33503350 0.0-1.2 mg/dL ----BUN/Creatinine Ratio 14 [id number] 8-20 ----A/G Ratio 1.7 [id number] 1.1-2.5 ----Sodium, Serum 142 [id number] 134-144 mmol/L ----Globulin, Total 2.5 [id number] 1.5-4.5 g/dL ----Potassium, Serum 4.4 [id number] 3.5-5.2 mmol/L ----Glucose, Serum 187 [id number] 65-99 mg/dL H ----Chloride, Serum 100 [id number] 97-108 mmol/L ----Albumin, Serum 4.3 [id number] 3.5-5.5 g/dL ----BUN 10 [id number] 6-20 mg/dL ----Protein, Total, Serum 6.8 [id number] 6.0-8.5 g/dL ROUTINE VENIPUNCTURE H PYLORI ----H. pylori, IgG Abs 0.6 [id number] 0.0-0.8 U/mL Summary Purpose eClinicalWorks Submission
--- OUTSIDE RECORDS SUMMARY | 2016-11-11 11:28 | XMS REPORT ---
Author Author ORQUIDEA VALDIVIA [facility] eClinicalWorks Address Unknown Phone Unavailable Care Team Providers Care Plate Colorer Name Role Phone ORQUIDEA VALDIVIA Unavailable Allergies [...] Active Problem Lumbago 724.2 Active Assessment Major depressive disorder, recurrent episode, moderate 296.32 Active Problem Depressive disorder, not elsewhere classified [...] patient &/family, 45 minutes, established patient CPT-4 84481 Mar 22, 2015 Results No Known Results Summary Purpose eClinicalWorks Submission
--- OUTSIDE RECORDS SUMMARY | 2016-11-11 11:28 | XMS REPORT ---
Author Author HERNÁN AGEE [facility] Address [address] [place] [address] Care Team Providers Care Control Panel Operator Name Role Phone HERNÁN AGEE Unavailable PROBLEMS Type Condition ICD9-CM Code EPG10-YE Code Onset Dates Condition Status SNOMED Code Problem Mixed hyperlipidemia E78.2 Active 534224368 Problem Essential hypertension I10 Active 87297980 Problem Essential hypertension, hypertension with unspecified goal I10 Active 56084405 Problem Panic disorder [episodic paroxysmal anxiety] without agoraphobia F41.0 Active 61859961 Problem Intractable episodic tension-type headache G44.211 Active 493503251 Problem Mood disorder F39 Active 99793866 Problem Hyperlipidemia E78.5 Active 32555801 Problem Abnormal serum enzyme level, unspecified R74.9 Active 845948362 Problem Palpitations R00.2 Active 97366889 Problem Major depressive disorder, recurrent episode, moderate F33.1 Active 857632970 Problem Gastroesophageal reflux disease without esophagitis K21.9 Active 390133425 Assessment Nausea and vomiting, intractability of vomiting not specified, unspecified vomiting type R11.2 Jun, Active 41307890 Problem Insulin resistance E88.81 Active 803472499 Assessment Epigastric pain R10.13 Jun, Active 51912485 Problem Type 2 diabetes mellitus without complication E11.9 Active 20802595 ALLERGIES Substance Reaction Event Type Date Status Zithromax Z-urban vomiting Drug Allergy Jun, Active Diltiazem HCl tachycardia Drug Allergy Jun, Active Aspirin nausea and vomiting Drug Allergy Jun, Active SOCIAL HISTORY No smoking Hx information available PLAN OF CARE Activity Details Pending Test Ultrasound : Abdomen, LIMITED (specify organ) prn, 2 - 3 Days after US,Reason: VITAL SIGNS Height 63 in 2016-06-30 Weight 249.0 lbs 2016-06-30 Heart Rate 65 bpm 2016-06-30 Respiratory Rate 16 2016-06-30 BMI 44.10 kg/m2 2016-06-30 Blood pressure systolic 113 mmHg 2016-06-30 Blood pressure diastolic 72 mmHg 2016-06-30 MEDICATIONS Medication Instructions Dosage Frequency Start Date End Date Duration Status Black Cohosh 40 MG Orally Once a day 2 tablets 24h Active Omeprazole 20 mg Orally Once a day 1 capsule 24h May, 30 day(s ) Active Metformin HCl 1000 MG Orally Twice a day 1 tablet with meals 12h Active Risperdal 1 MG Orally voucher Once a day 1 tablet 24h May, 30 day(s) Active Lisinopril 20 MG Orally Once a day 1 tablet 24h Active Ibuprofen 800 mg 1 tablet by Oral route 3 times per day PRN Oct, Active Fish Oil Concentrate 1000 MG Orally Once a day at bedtime 1 capsule Active Trintellix 10 mg Orally Once a day 1 tablet 24h May, Active Alprazolam 1 MG TAKE ONE TABLET BY MOUTH THREE TIMES DAILY NEEDED Active RESULTS Name Result Date Reference Range H PYLORI 2016-06-30 H. pylori, IgG Abs 0.9 0.0-0.8 CBC 2016-06-30 WBC 5.0 3.4-10.8 RBC 4.76 3.77-5.28 Hemoglobin 14.0 11.1-15.9 Hematocrit 43.1 34.0-46.6 MCV 91 79-97 MCH 29.4 26.6-33.0 MCHC 32.5 31.5-35.7 RDW 13.7 12.3-15.4 Platelets 183 150-379 Neutrophils 46 Lymphs 40 Monocytes 6 Eos 7 Basos 1 Neutrophils (Absolute) 2.3 1.4-7.0 Lymphs (Absolute) 2.0 0.7-3.1 Monocytes(Absolute) 0.3 0.1-0.9 Eos (Absolute) 0.3 0.0-0.4 Baso (Absolute) 0.0 0.0-0.2 Immature Granulocytes 0 Immature Grans (Abs) 0.0 0.0-0.1 CMP 2016-06-30 Glucose, Serum 85 65-99 BUN 11 6-20 Creatinine, Serum 0.73 0.57-1.00 eGFR If NonAfricn Am 107 >59 eGFR If Africn Am 123 >59 BUN/Creatinine Ratio 15 8-20 Sodium, Serum 141 136-144 Potassium, Serum 4.2 3.5-5.2 Chloride, Serum 103 97-106 Carbon Dioxide, Total 23 18-29 Calcium, Serum 10.4 8.7-10.2 Protein, Total, Serum 7.1 6.0-8.5 Albumin, Serum 4.4 3.5-5.5 Globulin, Total 2.7 1.5-4.5 A/G Ratio 1.6 1.1-2.5 Bilirubin, Total 0.7 0.0-1.2 Alkaline Phosphatase, S 72 39-117 AST (SGOT) 30 0-40 ALT (SGPT) 42 0-32 PROCEDURES Procedure Date Ordered Related Diagnosis Body Site ROUTINE VENIPUNCTURE 2016-06-30 N/A Office Visit, Est Pt., Level 3 Jun 30, 2016 HELICOBACTER PYLORI Jun 30, 2016 VENIPUNCT, ROUTINE* Jun 30, 2016 COMPREHEN METABOLIC PANEL Jun 30, 2016 COMPLETE CBC W/AUTO DIFF WBC Jun 30, 2016 IMMUNIZATIONS No Known Immunizations
--- OUTSIDE RECORDS SUMMARY | 2016-11-11 11:28 | XMS REPORT ---
Author Author ADRIAN BUCK Organization eClinicalWorks Address Unknown Phone Unavailable Care Team Providers Care Financial Coach Name Role Phone ADRIAN BUCK CP Unavailable [...] disorder, not elsewhere classified 311 Active Assessment Hypertension 401.9 Active Assessment Insulin resistance 277.7 Active Problem Major depressive disorder, recurrent episode, moderate 296.32 Active Problem Generalized anxiety disorder 300.02 Active Problem Insomnia, unspecified 780.52 Active Problem Unspecified episodic mood disorder 296.90 Active Problem Allergic rhinitis due to pollen 477.0 Active Problem Palpitations 785.1 Active Medications No Known Medications Procedures Procedure Coding System Code Date ASSAY OF INSULIN CPT-4 18386 Apr 19, 2015 COMPLETE CBC W/AUTO DIFF WBC CPT-4 55691 Apr 19, 2015 ASSAY OF CK (CPK) CPT-4 23920 Apr 19, 2015 COMPREHEN METABOLIC PANEL CPT-4 68241 Apr 19, 2015 LIPID PANEL CPT-4 12904 Apr 19, 2015 VENIPUNCT, ROUTINE* CPT-4 76069 Apr 19, 2015 GLYCATED HEMOGLOBIN TEST CPT-4 76251 Apr 19, 2015 Results Name Result Date Reference Range Unit Abnormality Flag ROUTINE VENIPUNCTURE Summary Purpose eClinicalWorks Submission
--- OUTSIDE RECORDS SUMMARY | 2016-11-11 11:29 | XMS REPORT ---
Author Author ADRIAN BUCK Organization [facility] Address [address] [place] [address] Care Team Providers Care Photographic Artist Name Role Phone ADRIAN BUCK Unavailable PROBLEMS Type Condition ICD9-CM Code MCB49-VZ Code Onset Dates Condition Status SNOMED Code Problem Insulin resistance E88.81 Active 520359626 Problem Mixed hyperlipidemia E78.2 Active 840318840 Problem Type 2 diabetes mellitus without complication E11.9 Active 93905620 Problem Major depressive disorder, recurrent episode, moderate F33.1 Active 189682545 Problem Gastroesophageal reflux disease without esophagitis K21.9 Active 963333853 Problem Abnormal serum enzyme level, unspecified R74.9 Active 987152281 Problem Palpitations R00.2 Active 58150941 Problem Essential hypertension I10 Active 23654811 Problem Essential hypertension, hypertension with unspecified goal I10 Active 89400250 Problem Mood disorder F39 Active 22191901 Problem Hyperlipidemia E78.5 Active 18011721 ALLERGIES Unknown Allergies SOCIAL HISTORY No smoking Hx information available PLAN OF CARE VITAL SIGNS MEDICATIONS Unknown Medications RESULTS No Results PROCEDURES No Known procedures IMMUNIZATIONS No Known Immunizations
--- OUTSIDE RECORDS SUMMARY | 2016-11-11 11:29 | XMS REPORT ---
Author Author HERNÁN AGEE [facility] eClinicalWorks Address Unknown Phone Unavailable Care Team Providers Care Fibre Optics Jointer Name Role Phone HERNÁN AGEE CP Unavailable [...] F39 Active Problem Hyperlipidemia E78.5 Active Assessment Type 2 diabetes mellitus without complication E11.9 Active Problem Major depressive disorder, recurrent episode, moderate F33.1 Active Problem Gastroesophageal reflux disease without esophagitis K21.9 Active Medications Medication Code System Code Instructions Start Date End Date Status Dosage Black Cohosh [facility] [address]-81 40 MG Orally Once a day 2 tablets Abilify [facility] [address]-35 5 MG Orally repository Once a day 1 tablet Trintellix [facility] [address]-81 10 mg Orally Once a day May 21, 2016 1 tablet Lisinopril [facility] [address]-97 20 MG Orally Once a day 1 tablet Fish Oil Concentrate [facility] [address] 1000 MG Orally Once a day at bedtime 1 capsule Omeprazole [facility] [address]-16 20 mg Orally Once a day May 15, 2016 1 capsule Alprazolam [facility] [address]-89 1 MG TAKE ONE TABLET BY MOUTH THREE TIMES DAILY NEEDED Risperdal [facility] [address]-66 1 MG Orally voucher Once a day May 21, 2016 1 tablet Metformin HCl [facility] [address]-80 1000 MG Orally Twice a day 1 tablet with meals Ibuprofen [facility] [address]-43 800 mg October 09, 2014 1 tablet by Oral route 3 times per day PRN Procedures Procedure Coding System Code Date Office Visit, Est Pt., Level 3 CPT-4 28733 May 29, 2016 Vital Signs Date/Time: May 29, 2016 Cardiac Monitoring Heart Rate 76 bpm Weight 253.6 lbs Height 63 in BMI 44.92 Index Blood Pressure Diastolic 76 mmHg Blood Pressure Systolic 116 mmHg Results No Known Results Summary Purpose eClinicalWorks Submission
--- OUTSIDE RECORDS SUMMARY | 2016-11-11 11:29 | XMS REPORT ---
Author Author BROOKLYNN PATRICK Organization eClinicalWorks Address Unknown Phone Unavailable Care Team Providers Care Loom Doffer Name Role Phone BROOKLYNN PATRICK Unavailable Allergies [...] spine 724.1 Active Problem Lumbago 724.2 Active Problem Depressive disorder, not elsewhere classified 311 Active Problem Major depressive disorder, recurrent episode, moderate 296.32 Active Problem Generalized anxiety disorder 300.02 Active Problem Insomnia, unspecified 780.52 Active Problem Unspecified episodic mood disorder 296.90 Active Problem Allergic rhinitis due to pollen 477.0 Active Problem Palpitations 785.1 Active Medications Medication Code System Code Instructions Start Date End Date Status Dosage Alprazolam [facility] [address]-02 1 MG TAKE ONE TABLET BY MOUTH THREE TIMES DAILY NEEDED Results No Known Results Summary Purpose eClinicalWorks Submission
--- OUTSIDE RECORDS SUMMARY | 2016-11-11 11:30 | XMS REPORT ---
Author Author BROOKLYNN PATRICK Organization eClinicalWorks Address Unknown Phone Unavailable Care Team Providers Care Superintendent House Name Role Phone BROOKLYNN PATRICK CP Unavailable [...] Palpitations 785.1 Active Medications No Known Medications Results No Known Results Summary Purpose eClinicalWorks Submission
--- OUTSIDE RECORDS SUMMARY | 2016-11-11 11:30 | XMS REPORT ---
Author Author ADRIAN BUCK Organization eClinicalWorks Address Unknown Phone Unavailable Care Team Providers Care Mainspring Fabrication Supervisor Name Role Phone ADRIAN BUCK CP Unavailable [...]
[2016-12-11] MEDS ORDERED: CIPR-225 PO (22:10)
== END 2016-10-24 20:43 | disposition home or self-care (01) ==
LOC: EDUNIT# 19:31 → ER 19:33
DX: J18.9 Pneumonia, unspecified organism (principal); J02.9 Acute pharyngitis, unspecified; E11.9 Type 2 diabetes mellitus without complications; I10 Essential (primary) hypertension; E66.9 Obesity, unspecified; Z79.84 Long term (current) use of oral hypoglycemic drugs; Z79.899 Other long term (current) drug therapy
CPT/HCPCS: 71020; 87804; 96372; 99282

== ENCOUNTER → 2016-12-11 | Emergency (ER) | payer SELFPAY ==
[~2016-12-11] VITALS: Ht 160 cm; Wt 117.9 kg
[~2016-12-11] MED LIST changes: +DOXY100C42 PO; +KETOROLAC 30 MG/ML VIAL IVP ONE; +NS IV 1000 ML 1,000 ML IV ONE; +ONDANSETRON 4 MG/2 ML (SDV) Z0FRAN IVP ONE; +RX-ONDANSETRON 4 MG ODT (ZOFRAN) PPK #4 SL STA; +cefTRIAXone INJECTION 1,000 MG in NS (IVPB) 50 ML IV ONE
[2016-12-11 20:35] LABS: BILIRUBIN,URINE NEGATIVE (NEGATIVE); KETONES,URINE NEGATIVE (NEGATIVE); LEUKOCYTE ESTERASE ,URINE 3+ (NEGATIVE); NITRITE,URINE NEGATIVE (NEGATIVE); PH,URINE 8 (5-9); PROTEIN,URINE 2+ (NEGATIVE); UROBILINOGEN,URINE NORMAL (NORMAL)
--- NOTE | 2016-12-11 20:46 | ED GU-Female ---
General Chief Complaint: -Female Stated Complaint: ABD CRAMPS, VAGINAL BLEEDING - POST HYSTERECTOMY Nursing Triage Note: pt states she has had severe generalized abd pain and cramping since yesterday. Nursing Sepsis Screen: No Definite Risk Source: patient Exam Limitations: no limitations History of Present Illness Time seen by provider: 20:15 Initial Comments This 36-year-old woman presents to the emergency room with complaints of abdominal pain and possible hematuria. She will class night with upper abdominal pain and lower back pain. This morning the pain worsened and has worsened throughout the day. She describes an intense pelvic pressure with urination and then blood with wiping after the last few bowel movements. She has history of hysterectomy and does not believe she has had any vaginal bleeding. She has a history of renal stones as well but states this pain feels different than kidney stones. She has had no nausea, vomiting, or diarrhea. She is afebrile. Allergies and Home Medications Allergies Coded Allergies: azithromycin (Verified Allergy, Unknown, 09/05/16) aspirin (Verified Adverse Reaction, Intermediate, VOMITING, 09/05/16) acetaminophen (Unverified Adverse Reaction, Unknown, 09/05/16) PT IS NOT SUPPOSE TO TAKE TYLENOL DUE TO LIVER DISEASE Home Medications Alprazolam 1 Mg Tablet, 1 MG PO TID, (Reported) Doxycycline Monohydrate 100 Mg Capsule, 100 MG PO BID for 7 Days Prescribed by: JOIE RO on 10/24/162038 Lisinopril 20 Mg Tablet, 20 MG PO DAILY, #30 Ref 0 Prescribed by: JESSICA REID on 09/09/152156 Metformin HCl 1,000 Mg Tablet, 1,000 MG PO BID, (Reported) Metoprolol Succinate 25 Mg Tab.er.24h, Unknown Dose PO DAILY, (Reported) Pantoprazole Sodium 40 Mg Tablet.dr, 40 MG PO DAILY, #60 Ref 2 Prescribed by: MAG TAMEZ on 09/09/16 1159 Ranitidine HCl 150 Mg Tablet, 150 MG PO BID, (Reported) Risperidone 1 Mg Tablet, 1 TAB PO UD, #30 (Reported) Sucralfate 1 Gm Tablet, 1 GM PO ACHS, (Reported) Sucralfate 1 Gm Tablet, 1 GM PO QID, #120 Prescribed by: MAG TAMEZ on 09/09/16 1159 Constitutional: no symptoms reported EENTM: see HPI Cardiovascular: no symptoms reported Gastrointestinal: see HPI Genitourinary: see HPI Musculoskeletal: no symptoms reported Skin: no symptoms reported Psychiatric/Neurological: No Symptoms Reported Endocrine: No Symptoms Reported Hematologic/Lymphatic: No Symptoms Reported Past Sovvikh-Chtjmt-Tehdgu Hx Patient Social History Alcohol Use: Denies Use Recreational Drug Use: No Smoking Status: Never a Smoker 2nd Hand Smoke Exposure: No Recent Foreign Travel: No Contact w/Someone Who Travel: No Recent Infectious Disease Expo: No Recent Hopitalizations: No Immunizations Up To Date Tetanus Booster (TDap): Less than 5yrs Date of Pneumonia Vaccine: May 03, 2012 Date of Influenza Vaccine: May 03, 2012 Seasonal Allergies Seasonal Allergies: Yes Surgeries HX Surgeries: Yes (SKIN GRAFT FOR GREWAL, D&C, LAPAROSCOPY, ABSCESS I&D) Surgeries: Adenoidectomy, Appendectomy, Section, Hysterectomy, Oophorectomy, Tonsillectomy Respiratory Hx Respiratory Disorders: Yes Respiratory Disorders: Asthma Cardiovascular Hx Cardiac Disorders: Yes Cardiac Disorders: Heart Murmur, High Cholesterol, Hypertension Neurological Hx Neurological Disorders: Yes Neurological Disorders: Headaches /Migraines Reproductive System Hx Reproductive Disorders: No Sexually Transmitted Disease: No HIV/AIDS: No Female Reproductive Disorders: Menstrual Problems, Ovarian Cyst COMBAT CONTROL History: Hysterectomy Genitourinary Hx Genitourinary Disorders: Yes Genitourinary Disorders: Kidney Stones, UTI-Chronic Gastrointestinal Hx Gastrointestinal Disorders: Yes (MORALES (FATTY LIVER)) Gastrointestinal Disorders: Gastroesophageal Reflux, Ulcer Musculoskeletal Hx Musculoskeletal Disorders: Yes (RESTLESS LEG SYNDROME, SCIATICA) Musculoskeletal Disorders: Degenerate Disk Disease, Arthritis, Chronic Back Pain Endocrine Hx Endocrine Disorders: Yes (HYPER PARATHYROID DISEASE, OBESITY) Endocrine Disorders: Parathyroid Disease, Diabetes, Non-Insulin dep HEENT HX ENT Disorders: Yes (GLASSES) Loss of Vision: Bilateral Hearing Impairment: Denies Cancer Hx Cancer: No Psychosocial Hx Psychiatric Problems: Yes Behavioral Health Disorders: Anxiety, Bipolar, Depression Integumentary HX Skin/Integumentary Disorder: No Blood Transfusions Hx Blood Disorders: No Adverse Reaction to a Blood Tr: No (HAS HAD BLOOD WITH NO PROBLEM) Family Medical History Significant Family History: No Pertinent Family Hx Physical Exam Vital Signs Vital Sign - Last 12Hours 12/11/16 20:11 Temp 97.9 Pulse 90 Resp 20 B/P (MAP) 179/107 Pulse Ox 99 O2 Delivery Room Air Capillary Refill : Less Than 3 Seconds General Appearance: WD/WN, no apparent distress HEENT: PERRL/EOMI, normal ENT inspection Neck: normal inspection Cardiovascular: regular rate, rhythm, no edema, no murmur Respiratory: lungs clear, normal breath sounds, no respiratory distress, no accessory muscle use Gastrointestinal: normal bowel sounds, soft, tenderness (central abdomen and suprapubic) Pelvic: normal external exam, other (normal vaginal cuff and vaginal wall. No tenderness. No evidence of vaginal or urethral bleeding. Normal anus.) Back: CVA tenderness (R), CVA tenderness (L) Extremities: normal inspection, no pedal edema Neurologic/Psychiatric: production operations inspector II-XII nml as tested, no motor/sensory deficits, alert, normal mood/affect, oriented x 3 Skin: normal color, warm/dry Progress/Results/Core Measures Results/Orders Lab Results Laboratory Tests Test 12/11/16 20:23 12/11/16 21:07 Range/Units Urine Color YELLOW Urine Clarity SLIGHTLY CLOUDY Urine pH 8 5-9 Urine Specific [place] 1.015 L 1.016-1.022 Urine Protein 2+ H NEGATIVE Urine Glucose (UA) NEGATIVE NEGATIVE Urine Ketones NEGATIVE NEGATIVE Urine Nitrite NEGATIVE NEGATIVE Urine Bilirubin NEGATIVE NEGATIVE Urine Urobilinogen NORMAL NORMAL MG/DL Urine Leukocyte Esterase 3+ H NEGATIVE Urine RBC (Auto) 5+ H NEGATIVE Urine RBC TNTC H /HPF Urine WBC 50-100 H /HPF Urine Squamous Epithelial Cells 10-25 H /HPF Urine Crystals NONE /LPF Urine Bacteria FEW H /HPF Urine Casts NONE /LPF Urine Mucus NEGATIVE /LPF Urine Culture Indicated YES White Blood Count 9.4 4.3-11.0 10^3/uL Red Blood Count 4.73 4.35-5.85 10^6/uL Hemoglobin 14.0 11.5-16.0 G/DL Hematocrit 41 35-52 % Mean Corpuscular Volume 88 80-99 FL Mean Corpuscular Hemoglobin 30 25-34 PG Mean Corpuscular Hemoglobin Concent 34 32-36 G/DL Red Cell Distribution Width 13.4 10.0-14.5 % Platelet Count 168 130-400 10^3/uL Mean Platelet Volume 9.5 7.4-10.4 FL Neutrophils (%) (Auto) 65 42-75 % Lymphocytes (%) (Auto) 24 12-44 % Monocytes (%) (Auto) 8 0-12 % Eosinophils (%) (Auto) 3 0-10 % Basophils (%) (Auto) 0 0-10 % Neutrophils # (Auto) 6.1 1.8-7.8 X 10^3 Lymphocytes # (Auto) 2.2 1.0-4.0 X 10^3 Monocytes # (Auto) 0.8 0.0-1.0 X 10^3 Eosinophils # (Auto) 0.3 0.0-0.3 10^3/uL Basophils # (Auto) 0.0 0.0-0.1 10^3/uL Sodium Level 141 135-145 MMOL/L Potassium Level 3.7 3.6-5.0 MMOL/L Chloride Level 105 98-107 MMOL/L Carbon Dioxide Level 28 21-32 MMOL/L Anion Gap 8 5-14 MMOL/L Blood Urea Nitrogen 10 7-18 MG/DL Creatinine 0.73 0.60-1.30 MG/DL Estimat Glomerular Filtration Rate > 60 BUN/Creatinine Ratio 14 Glucose Level 102 70-105 MG/DL Calcium Level 10.2 H 8.5-10.1 MG/DL Total Bilirubin 0.6 0.1-1.0 MG/DL Aspartate Amino Transf (AST/SGOT) 51 H 5-34 U/L Alanine Aminotransferase (ALT/SGPT) 90 H 0-55 U/L Alkaline Phosphatase 84 40-136 U/L Total Protein 7.3 6.4-8.2 G/DL Albumin 4.3 3.2-4.5 G/DL My Orders Orders - RANDAL EDMOND MD Ua Culture If Indicated (12/11/16 20:15) Urine Culture (12/11/16 20:23) Cbc With Automated Diff (12/11/16 20:56) Comprehensive Metabolic Panel (12/11/16 20:56) Saline Lock/Iv-Start (12/11/16 20:56) Ns Iv 1000 Ml (Sodium Chloride 0.9%) (12/11/16 20:56) Ondansetron Injection (Zofran Injectio (12/11/16 21:00) Ketorolac Injection (Toradol Injection) (12/11/16 21:00) Ct Abd/Pelvis Wo(Kidney Stone) (12/11/16 20:56) Ceftriaxone Injection (Rocephin Injectio (12/11/16 21:45) Rx-Ondansetron Po (Rx-Zofran Po) (12/11/16 21:55) Medications Given in ED Current Medications Medications Dose Ordered Sig/Ronna Route Start Time Stop Time Status Last Admin Dose Admin Ketorolac Tromethamine 30 mg ONCE ONCE IVP 12/11/16 21:00 12/11/16 21:01 DC 12/11/16 21:21 30 MG Ondansetron HCl 8 mg ONCE ONCE IVP 12/11/16 21:00 12/11/16 21:01 DC 12/11/16 21:21 8 MG Sodium Chloride 1,000 ml @ 0 mls/hr Q0M ONCE IV 12/11/16 20:56 12/11/16 20:59 DC 12/11/16 21:19 0 MLS/HR Vital Signs/I&O Vital Sign - Last 12Hours 12/11/16 20:11 Temp 97.9 Pulse 90 Resp 20 B/P (MAP) 179/107 Pulse Ox 99 O2 Delivery Room Air Blood Pressure Mean: 131 Progress Note #1: Progress Note Patient was found to have a significant amount of red and white cells in her urine with few bacteria. Renal stone with associated urinary tract infection should be ruled out at this point. IV will be established, labs drawn, and CT obtained. Patient has requested medication for pain and nausea. Toradol and Zofran have been ordered. Progress Note #2: Progress Note Patient received Zofran and Toradol for symptoms. IV fluids were infused. Rocephin was administered for urinary tract infection. CT imaging revealed no pathology. Pelvic exam revealed no source of bleeding. The hematuria was felt to be related to urinary tract infection. Patient was given a take-home packet of Zofran and dismissed. Diagnostic Imaging Diagonstic Imaging: CT Plain Films/CT/US/NM/MRI: abdomen, pelvis Comments CT abdomen and pelvis viewed by me and report reviewed. See report below: NAME: JONATHAN URIBE [facility] REC#: [id number] PT STATUS: REG ER : 1980 PHYSICIAN: RANDAL EDMOND MD ADMIT DATE: 12/11/16/ER Signed Date of Exam: 12/11/16 CT ABD/PELVIS WO(KIDNEY STONE) PROCEDURE: CT urinary tract, rule out kidney stone. TECHNIQUE: Multiple contiguous axial images were obtained through the abdomen and pelvis without the use of intravenous contrast. INDICATION: Generalized abdominal pain and cramping. Comparison is made with prior examination from 08/22/16. FINDINGS: The heart size is normal. The lung bases are clear. The liver is normal in size without focal lesions. The gallbladder is unremarkable. The spleen is normal. The pancreas and adrenal glands are unremarkable. The kidneys are normal. The aorta is nonaneurysmal. The appendix appears to be surgically absent. The bladder is normal. There is no pelvic mass, adenopathy or free fluid. There are mild degenerative changes in the spine. IMPRESSION: No evidence of nephrolithiasis or obstructive uropathy. Previous appendectomy and hysterectomy. No other acute abnormality in the abdomen or pelvis. Dictated by: Dictated on workstation # [id number] Dict: 12/11/162129 Trans: 12/11/162142 Interpreted by: YAZAN TONEY Electronically signed by: YAZAN TONEY 12/11/162142 Departure Impression Impression: Primary Impression: UTI (urinary tract infection) Qualified Codes: N39.0 - Urinary tract infection, site not specified; R31.9 - Hematuria, unspecified Additional Impressions: Nausea and vomiting Qualified Codes: R11.2 - Nausea with vomiting, unspecified Lower abdominal pain Hematuria Disposition: 01 HOME, SELF-CARE Condition: Improved Departure-Patient Inst. Decision time for Depature: 22:04 Referrals: [facility] (PCP[facility] Primary Care Physician JOE JONES DO (Family) Primary Care Physician Patient Instructions: Blood in the Urine (Hematuria) in Adults, Urinary Tract Infection, Adult (DC) Add. Discharge Instructions: Drink plenty of clear liquids. Urinate often. Complete your antibiotics as prescribed. Follow-up with your primary care provider on Thursday to review urine culture results. Return to the emergency room if symptoms worsen. You may take Tylenol and/or ibuprofen for pain. Use the Zofran (ondansetron) dissolved under the tongue every 4 hours as needed for nausea and vomiting. Please note it is important that you have your urine checked again after treatment of your infection is complete. This is important to ensure clearing of the blood in your urine. All discharge instructions reviewed with patient and/or family. Voiced understanding. Copy Copies To 1: JOE JONES JOSHUA T MD December 11, 2016 20:46
[2016-12-11 20:50] LABS: WBC,URINE 50-100 /HPF
[2016-12-11 21:16] LABS: BASOPHILS % (AUTO) 0 % (0-10); EOSINOPHILS # (AUTO) 0.3 10^3/uL (0.0-0.3); EOSINOPHILS % (AUTO) 3 % (0-10); LYMPHOCYTES # (AUTO) 2.2 X 10^3 (1.0-4.0); LYMPHOCYTES % (AUTO) 24 % (12-44); MEAN CORPUSCULAR HEMOGLOBIN 30 PG (25-34); MEAN CORPUSCULAR HGB CONC 34 G/DL (32-36); MEAN CORPUSCULAR VOLUME 88 FL (80-99); MEAN PLATELET VOLUME 9.5 FL (7.4-10.4); MONOCYTES # (AUTO) 0.8 X 10^3 (0.0-1.0); MONOCYTES % (AUTO) 8 % (0-12); NEUTROPHILS # (AUTO) 6.1 X 10^3 (1.8-7.8); NEUTROPHILS % (AUTO) 65 % (42-75); PLATELET COUNT 168 10^3/uL (130-400); RED BLOOD COUNT 4.73 10^6/uL (4.35-5.85); RED CELL DISTRIBUTION WIDTH 13.4 % (10.0-14.5); WHITE BLOOD COUNT 9.4 10^3/uL (4.3-11.0)
[2016-12-11 21:33] LABS: ALANINE AMINOTRANSFERASE 90 U/L (0-55); ALBUMIN 4.3 G/DL (3.2-4.5); ANION GAP 8 MMOL/L (5-14); ASPARTATE AMINO TRANSFERASE 51 U/L (5-34); BILIRUBIN,TOTAL 0.6 MG/DL (0.1-1.0); BLOOD UREA NITROGEN 10 MG/DL (7-18); BUN/CREATININE RATIO 14; CALCIUM 10.2 MG/DL (8.5-10.1); CARBON DIOXIDE 28 MMOL/L (21-32); CHLORIDE 105 MMOL/L (98-107); CREATININE SERUM 0.73 MG/DL (0.60-1.30); GFR ESTIMATED > 60; GLUCOSE 102 MG/DL (70-105); POTASSIUM 3.7 MMOL/L (3.6-5.0); SODIUM 141 MMOL/L (135-145); TOTAL PROTEIN 7.3 G/DL (6.4-8.2)
--- NOTE | 2016-12-11 21:39 | Diagnostic Imaging Report ---
PROCEDURE: CT urinary tract, rule out kidney stone. TECHNIQUE: Multiple contiguous axial images were obtained through the abdomen and pelvis without the use of intravenous contrast. INDICATION: Generalized abdominal pain and cramping. Comparison is made with prior examination from 08/22/16. FINDINGS: The heart size is normal. The lung bases are clear. The liver is normal in size without focal lesions. The gallbladder is unremarkable. The spleen is normal. The pancreas and adrenal glands are unremarkable. The kidneys are normal. The aorta is nonaneurysmal. The appendix appears to be surgically absent. The bladder is normal. There is no pelvic mass, adenopathy or free fluid. There are mild degenerative changes in the spine. IMPRESSION: No evidence of nephrolithiasis or obstructive uropathy. Previous appendectomy and hysterectomy. No other acute abnormality in the abdomen or pelvis. Dictated by: Dictated on workstation # [id number]
[2016-12-11 22:33] VITALS: BP 141/76
== END | disposition home or self-care (01) ==
LOC: EDUNIT# 19:58 → ER 20:01
DX: R10.30 Lower abdominal pain, unspecified (principal); N30.91 Cystitis, unspecified with hematuria; R11.2 Nausea with vomiting, unspecified; E11.9 Type 2 diabetes mellitus without complications; E66.9 Obesity, unspecified; I10 Essential (primary) hypertension; Z79.84 Long term (current) use of oral hypoglycemic drugs; Z79.899 Other long term (current) drug therapy; Z87.442 Personal history of urinary calculi
CPT/HCPCS: 36415; 74176; 80053; 81000; 85025; 87088; 96361; 96374; 96375

== ENCOUNTER 2017-01-06 19:58 | Emergency (ER) | payer SELFPAY ==
[~2017-01-06] VITALS: Ht 160 cm; Wt 113.4 kg
[~2017-01-06 19:58] MED LIST changes: -KETOROLAC 30 MG/ML VIAL IVP ONE; -NS IV 1000 ML 1,000 ML IV ONE; -ONDANSETRON 4 MG/2 ML (SDV) Z0FRAN IVP ONE; -RX-ONDANSETRON 4 MG ODT (ZOFRAN) PPK #4 SL STA; -cefTRIAXone INJECTION 1,000 MG in NS (IVPB) 50 ML IV ONE
[2017-01-06 20:29] LABS: BILIRUBIN,URINE NEGATIVE (NEGATIVE); KETONES,URINE NEGATIVE (NEGATIVE); LEUKOCYTE ESTERASE ,URINE NEGATIVE (NEGATIVE); NITRITE,URINE NEGATIVE (NEGATIVE); PH,URINE 7 (5-9); PROTEIN,URINE NEGATIVE (NEGATIVE); UROBILINOGEN,URINE NORMAL (NORMAL)
[2017-01-06] MEDS ORDERED: diphenhydrAMINE 50 MG/ML INJ (BENADRYL) IV STA (20:53)
[2017-01-06] MEDS ORDERED: NS IV 1000 ML 1,000 ML IV ONE (20:53)
[2017-01-06] MEDS ORDERED: KETOROLAC 30 MG/ML VIAL IVP STA (20:53)
[2017-01-06] MEDS ORDERED: PROMETHAZINE INJ 25 MG/ML (PHENERGAN) AMP IVP STA (20:53)
--- NOTE | 2017-01-06 20:53 | ED General ---
General Chief Complaint: Glucose Problems Stated Complaint: HIGH BLOOD SUGAR/HEADACHE Nursing Triage Note: c/o high glucose, headache x1 day. Nursing Sepsis Screen: No Definite Risk History of Present Illness Time Seen by Provider: 20:45 Initial Comments Patient reports that her glucose random at 2-37 today, but normally stays in the 110-140 range. She also reports having a migraine headache, with photophobia , nausea, and limited oral intake today. Timing/Duration: 12 Hours Severity: Moderate Modifying Factors: improves with Rest Associated Systoms: No Chest Pain, No Cough, No Diaphoresis, No Fever/Chills, Headaches, Loss of Appetite, Malaise, Nausea/Vomiting, No Rash, No Seizure, No Shortness of Air, No Syncope, No Weakness Allergies and Home Medications Allergies Coded Allergies: azithromycin (Verified Allergy, Unknown, 09/05/16) aspirin (Verified Adverse Reaction, Intermediate, VOMITING, 09/05/16) acetaminophen (Unverified Adverse Reaction, Unknown, 09/05/16) PT IS NOT SUPPOSE TO TAKE TYLENOL DUE TO LIVER DISEASE Home Medications Alprazolam 1 Mg Tablet, 1 MG PO TID, (Reported) Lisinopril 20 Mg Tablet, 20 MG PO DAILY, #30 Ref 0 Prescribed by: JESSICA REID on 09/09/152156 Metformin HCl 1,000 Mg Tablet, 1,000 MG PO BID, (Reported) Metoprolol Succinate 25 Mg Tab.er.24h, Unknown Dose PO DAILY, (Reported) Pantoprazole Sodium 40 Mg Tablet.dr, 40 MG PO DAILY, #60 Ref 2 Prescribed by: MAG TAMEZ on 09/09/16 1159 Ranitidine HCl 150 Mg Tablet, 150 MG PO BID, (Reported) Risperidone 1 Mg Tablet, 1 TAB PO UD, #30 (Reported) Sucralfate 1 Gm Tablet, 1 GM PO ACHS, (Reported) Sucralfate 1 Gm Tablet, 1 GM PO QID, #120 Prescribed by: MAG TAMEZ on 09/09/16 1159 Constitutional: no symptoms reported, see HPI EENTM: ear pain (secondary to migraine.), other (photophobia), see HPI, No blurred vision Respiratory: no symptoms reported, see HPI Cardiovascular: no symptoms reported, see HPI Gastrointestinal: see HPI, loss of appetite, nausea Genitourinary: no symptoms reported, see HPI Musculoskeletal: no symptoms reported, see HPI Skin: no symptoms reported, see HPI Psychiatric/Neurological: No Symptoms Reported, See HPI Hematologic/Lymphatic: No Symptoms Reported, See HPI Immunological/Allergic: no symptoms reported, see HPI All Other Systems Reviewed Negative Unless Noted: Yes Past Ontihac-Psagml-Vbdoxb Hx Patient Social History Alcohol Use: Denies Use Recreational Drug Use: No Smoking Status: Never a Smoker 2nd Hand Smoke Exposure: No Recent Foreign Travel: No Contact w/Someone Who Travel: No Recent Infectious Disease Expo: No Recent Hopitalizations: No Immunizations Up To Date Tetanus Booster (TDap): Less than 5yrs Date of Pneumonia Vaccine: May 03, 2012 Date of Influenza Vaccine: May 03, 2012 Seasonal Allergies Seasonal Allergies: Yes Surgeries HX Surgeries: Yes (SKIN GRAFT FOR GREWAL, D&C, LAPAROSCOPY, ABSCESS I&D) Surgeries: Adenoidectomy, Appendectomy, Section, Hysterectomy, Oophorectomy, Tonsillectomy Respiratory Hx Respiratory Disorders: Yes Respiratory Disorders: Asthma Cardiovascular Hx Cardiac Disorders: Yes Cardiac Disorders: Heart Murmur, High Cholesterol, Hypertension Neurological Hx Neurological Disorders: Yes Neurological Disorders: Headaches /Migraines Reproductive System Hx Reproductive Disorders: No Sexually Transmitted Disease: No HIV/AIDS: No Female Reproductive Disorders: Menstrual Problems, 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 Genitourinary Hx Genitourinary Disorders: Yes Genitourinary Disorders: Kidney Stones, UTI-Chronic Gastrointestinal Hx Gastrointestinal Disorders: Yes (MORALES (FATTY LIVER)) Gastrointestinal Disorders: Gastroesophageal Reflux, Ulcer Musculoskeletal Hx Musculoskeletal Disorders: Yes (RESTLESS LEG SYNDROME, SCIATICA) Musculoskeletal Disorders: Degenerate Disk Disease, Arthritis, Chronic Back Pain Endocrine Hx Endocrine Disorders: Yes (HYPER PARATHYROID DISEASE, OBESITY) Endocrine Disorders: Parathyroid Disease, Diabetes, Non-Insulin dep HEENT HX ENT Disorders: Yes (GLASSES) Loss of Vision: Bilateral Hearing Impairment: Denies Cancer Hx Cancer: No Psychosocial Hx Psychiatric Problems: Yes Behavioral Health Disorders: Anxiety, Bipolar, Depression Integumentary HX Skin/Integumentary Disorder: No Blood Transfusions Hx Blood Disorders: No Adverse Reaction to a Blood Tr: No (HAS HAD BLOOD WITH NO PROBLEM) Reviewed Nursing Assessment Reviewed/Agree w Nursing PMH: Yes Family Medical History Significant Family History: No Pertinent Family Hx Physical Exam Vital Signs Vital Sign - Last 12Hours 01/06/17 20:10 Temp 97.4 Pulse 99 Resp 18 B/P (MAP) 157/77 Pulse Ox 97 O2 Delivery Room Air Capillary Refill : Less Than 3 Seconds General Appearance: No Apparent Distress, WD/WN Eyes: Bilateral Eye EOMI, Bilateral Eye Normal Inspection, Bilateral Eye PERRL , Bilateral Eye Photophobia HEENT: PERRL/EOMI, TMs Normal, Normal ENT Inspection, Pharynx Normal Neck: Full Range of Motion, Normal Inspection, Non Tender, Supple, No Lymphadenopathy (L), No Lymphadenopathy (R) Respiratory: Chest Non Tender, Lungs Clear, Normal Breath Sounds, No Accessory Muscle Use, No Respiratory Distress Cardiovascular: Regular Rate, Rhythm, No Murmur, Normal Peripheral Pulses Gastrointestinal: Normal Bowel Sounds, No Organomegaly, No Pulsatile Mass, Non Tender, Soft Back: Normal Inspection, No CVA Tenderness, No Vertebral Tenderness Extremity: Normal Capillary Refill, Normal Inspection, Normal Range of Motion, Non Tender, No Calf Tenderness, No Pedal Edema Neurologic/Psychiatric: Alert, Oriented x3, No Motor/Sensory Deficits, Normal Mood/Affect, contract assistant II-XII Norm as Tested (grossly intact) Skin: Normal Color, Warm/Dry Lymphatic: No Adenopathy Progress/Results/Core Measures Results/Orders Lab Results Laboratory Tests Test 01/06/17 20:10 01/06/17 20:12 Range/Units Urine Color YELLOW Urine Clarity CLEAR Urine pH 7 5-9 Urine Specific [place] 1.010 L 1.016-1.022 Urine Protein NEGATIVE NEGATIVE Urine Glucose (UA) NEGATIVE NEGATIVE Urine Ketones NEGATIVE NEGATIVE Urine Nitrite NEGATIVE NEGATIVE Urine Bilirubin NEGATIVE NEGATIVE Urine Urobilinogen NORMAL NORMAL MG/DL Urine Leukocyte Esterase NEGATIVE NEGATIVE Urine RBC (Auto) NEGATIVE NEGATIVE Urine RBC NONE /HPF Urine WBC NONE /HPF Urine Squamous Epithelial Cells 10-25 H /HPF Urine Crystals PRESENT H /LPF Urine Amorphous Sediment FEW NAHID URATES H /LPF Urine Bacteria FEW H /HPF Urine Casts NONE /LPF Urine Mucus NEGATIVE /LPF Urine Culture Indicated NO Glucometer 140 H 70-110 MG/DL My Orders Orders - HERNÁN MATT Saline Lock/Iv-Start (01/06/17 20:53) Ns Iv 1000 Ml (Sodium Chloride 0.9%) (01/06/17 20:53) Ketorolac Injection (Toradol Injection) (01/06/17 20:53) Diphenhydramine Injection (Benadryl Inje (01/06/17 20:53) Promethazine Injection (Phenergan Injec (01/06/17 20:53) Morphine Injection (Morphine Injection (01/06/17 21:51) Medications Given in ED Current Medications Medications Dose Ordered Sig/Ronna Route Start Time Stop Time Status Last Admin Dose Admin Sodium Chloride 1,000 ml @ 0 mls/hr Q0M ONCE IV 01/06/17 20:53 01/06/17 20:55 DC 01/06/17 21:01 0 MLS/HR Vital Signs/I&O Vital Sign - Last 12Hours 01/06/17 20:10 Temp 97.4 Pulse 99 Resp 18 B/P (MAP) 157/77 Pulse Ox 97 O2 Delivery Room Air Blood Pressure Mean: 103 Point of Care Testing Finger Stick Blood Glucose: 140 Progress Note : Time: 20:45 Progress Note Initial evaluation completed, will evaluate UA, start normal saline 1 L IV, Toradol 30 mg IV, Benadryl 25 IV, and promethazine 25 mg IV. Blood glucose 140. 2130 patient reports trace improvement in her symptoms would like to try something additional to help with headache. Proximally three fourths of her IV fluids have infuse. 2145 morphine 5 mg IV for pain. 2215 patient reports some improvement in her headache, she like to try ice chips as her nausea is improving. 2245 patient feels she is improved enough to return home. She can continue to use Tylenol and/or Ibuprofen alternating every 4 hours if she continues to have symptoms, or follow-up with Zuleyka Becker APRN. Departure Impression Impression: Primary Impression: Migraine Qualified Codes: G43.019 - Migraine without aura, intractable, without status migrainosus Additional Impression: Hyperglycemia Disposition: 01 HOME, SELF-CARE Condition: Improved Departure-Patient Inst. Decision time for Depature: 22:30 Referrals: [facility] (PCP/Family) Primary Care Physician Patient Instructions: Migraine Headache (DC) Add. Discharge Instructions: Alternate between Tylenol 650 mg and ibuprofen 600 mg every 4 hours or pain. Continue to monitor her blood glucose. Increase oral fluid intake. Return to emergency department for persistent headache, high or low glucose, dehydration, or new concerns. All discharge instructions reviewed with patient and/or family. Voiced understanding. Copy Copies To 1: ATILIO DORSEY MD, AMY ARNP Jan 06, 2017 20:53
[2017-01-06] MEDS ORDERED: morphine INJ 10 MG/ML 1ML (SYR OR VIAL) IVP STA (21:51)
[2017-01-06 22:56] VITALS: BP 117/94
== END 2017-01-06 23:00 | disposition home or self-care (01) ==
LOC: EDUNIT# 19:58 → ER 20:00
DX: E11.65 Type 2 diabetes mellitus with hyperglycemia (principal); I10 Essential (primary) hypertension; G43.909 Migraine, unspecified, not intractable, without status migrainosus; E78.00 Pure hypercholesterolemia, unspecified; Z79.84 Long term (current) use of oral hypoglycemic drugs
CPT/HCPCS: 81000; 82962

== ENCOUNTER 2017-02-03 12:46 | Emergency (ER) | payer BC, OTHER ==
[~2017-02-03] VITALS: Ht 160 cm; Wt 113.4 kg
[2017-02-03] MEDS ORDERED: KETOROLAC 30 MG/ML VIAL IVP STA (13:13)
[2017-02-03] MEDS ORDERED: ORPHENADRINE 60 MG/2 ML (NORFLEX) AMP IV STA (13:13)
[2017-02-03] MEDS ORDERED: NS IV 1000 ML 1,000 ML IV ONE (13:13)
[2017-02-03] MEDS ORDERED: ONDANSETRON 4 MG/2 ML (SDV) Z0FRAN IVP ONE (13:15)
[2017-02-03] MEDS ORDERED: diphenhydrAMINE 25 MG TAB (BENADRYL) PO ONE (13:15)
--- NOTE | 2017-02-03 13:49 | ED Headache ---
General Chief Complaint: Head/Cervical Problems Stated Complaint: MIGRAINE Nursing Triage Note: PT STATES HAVING A MIGRAINE FOR ABOUT 3 WEEKS, WAS SEEN ABOUT A WEEK AGO AND GIVEN A TORADOL SHOT WHICH MADE IT BETTER BUT IT CAME BACK. PT STATES PAIN IN EYES AND POSTERIOR HEAD. Nursing Sepsis Screen: No Definite Risk Source: patient Exam Limitations: no limitations History of Present Illness Time seen by provider: 13:48 Initial Comments 36-year-old female patient presents to the emergency department with complaints of headache for approximately 3 weeks. States one week ago she was given Toradol with improvement in symptoms. Reports pain down the posterior head. Pain radiates down the neck and up the scalp. Complains of muscle tension and tightness. Positive photophobia. Denies known injury. Headache has been intermittent. Timing/Duration: episodic, waxing and waning, other (3 weeks) Severity/Quality: throbbing Location: occipital Prior Headaches/Recent Trauma: occasional headaches Modifying Factors: worse with exposure to light Allergies and Home Medications Allergies Coded Allergies: azithromycin (Verified Allergy, Unknown, 09/05/16) aspirin (Verified Adverse Reaction, Intermediate, VOMITING, 09/05/16) acetaminophen (Unverified Adverse Reaction, Unknown, 09/05/16) PT IS NOT SUPPOSE TO TAKE TYLENOL DUE TO LIVER DISEASE Home Medications Alprazolam 1 Mg Tablet, 1 MG PO TID, (Reported) Cyclobenzaprine HCl 10 Mg Tablet, 10 MG PO Q8H PRN for SPASMS, #14 Ref 0 Prescribed by: JESSICA REID on 02/03/17 1523 Lisinopril 20 Mg Tablet, 20 MG PO DAILY, #30 Ref 0 Prescribed by: JESSICA REID on 09/09/15 2157 Metformin HCl 1,000 Mg Tablet, 1,000 MG PO BID, (Reported) Metoprolol Succinate 25 Mg Tab.er.24h, Unknown Dose PO DAILY, (Reported) Pantoprazole Sodium 40 Mg Tablet.dr, 40 MG PO DAILY, #60 Ref 2 Prescribed by: MAG TAMEZ on 09/09/16 1159 Prednisone 20 Mg Tab, 40 MG PO DAILY, #10 Ref 0 Prescribed by: JESSICA REID on 02/03/17 1523 Ranitidine HCl 150 Mg Tablet, 150 MG PO BID, (Reported) Risperidone 1 Mg Tablet, 1 TAB PO UD, #30 (Reported) Sucralfate 1 Gm Tablet, 1 GM PO ACHS, (Reported) Tramadol HCl 50 Mg Tablet, 50 MG PO Q4H PRN for HEADACHE, #14 Ref 0 Prescribed by: JESSICA REID on 02/03/17 1524 Constitutional: No chills, No dizziness, No fever, No malaise Eyes: Photophobia, Denies Vision Changes, Glasses Ears, Nose, Mouth, Throat: denies ear pain, denies ear discharge, denies nose pain, denies epistaxis, denies mouth swelling, denies loose teeth, denies throat pain Respiratory: no symptoms reported Cardiovascular: no symptoms reported Gastrointestinal: No abdominal pain, No diarrhea, nausea, No vomiting Genitourinary: no symptoms reported Musculoskeletal: No back pain, No joint pain, neck pain Skin: no symptoms reported Psychiatric/Neurological: Headache, Denies Numbness, Denies Paresthesia, Denies Seizure, Denies Tingling, Denies Weakness All Other Systems Reviewed Negative Unless Noted: Yes (Negative excepted noted.) Past Bhpksyf-Cwozwg-Qvaocr Hx Patient Social History Alcohol Use: Denies Use Recreational Drug Use: No Smoking Status: Never a Smoker 2nd Hand Smoke Exposure: No Recent Foreign Travel: No Contact w/Someone Who Travel: No Recent Infectious Disease Expo: No Recent Hopitalizations: No Immunizations Up To Date Tetanus Booster (TDap): Less than 5yrs Date of Pneumonia Vaccine: May 03, 2012 Date of Influenza Vaccine: May 03, 2012 Seasonal Allergies Seasonal Allergies: Yes Surgeries HX Surgeries: Yes (SKIN GRAFT FOR GREWAL, D&C, LAPAROSCOPY, ABSCESS I&D) Surgeries: Adenoidectomy, Appendectomy, Section, Hysterectomy, Oophorectomy, Tonsillectomy Respiratory Hx Respiratory Disorders: Yes Respiratory Disorders: Asthma Cardiovascular Hx Cardiac Disorders: Yes Cardiac Disorders: Heart Murmur, High Cholesterol, Hypertension Neurological Hx Neurological Disorders: Yes Neurological Disorders: Headaches /Migraines Reproductive System Hx Reproductive Disorders: No Sexually Transmitted Disease: No HIV/AIDS: No Female Reproductive Disorders: Menstrual Problems, Ovarian 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 Genitourinary Hx Genitourinary Disorders: Yes Genitourinary Disorders: Kidney Stones, UTI-Chronic Gastrointestinal Hx Gastrointestinal Disorders: Yes (MORALES (FATTY LIVER)) Gastrointestinal Disorders: Gastroesophageal Reflux, Ulcer Musculoskeletal Hx Musculoskeletal Disorders: Yes (RESTLESS LEG SYNDROME, SCIATICA) Musculoskeletal Disorders: Degenerate Disk Disease, Arthritis, Chronic Back Pain Endocrine Hx Endocrine Disorders: Yes (HYPER PARATHYROID DISEASE, OBESITY) Endocrine Disorders: Parathyroid Disease, Diabetes, Non-Insulin dep HEENT HX ENT Disorders: Yes (GLASSES) Loss of Vision: Bilateral Hearing Impairment: Denies Cancer Hx Cancer: No Psychosocial Hx Psychiatric Problems: Yes Behavioral Health Disorders: Anxiety, Bipolar, Depression Integumentary HX Skin/Integumentary Disorder: No Blood Transfusions Hx Blood Disorders: No Adverse Reaction to a Blood Tr: No (HAS HAD BLOOD WITH NO PROBLEM) Reviewed Nursing Assessment Reviewed/Agree w Nursing PMH: Yes Family Medical History Significant Family History: No Pertinent Family Hx Physical Exam Vital Signs Vital Sign - Last 12Hours 02/03/17 12:59 Temp 97.0 Pulse 96 Resp 20 B/P (MAP) 151/95 Pulse Ox 97 O2 Delivery Room Air Capillary Refill : Less Than 3 Seconds General Appearance: WD/WN, no apparent distress HEENT: PERRL/EOMI, normal ENT inspection, TMs normal, pharynx normal Neck: supple, limited range of motion ((due to muscle tension in the posteriolateral neck)), No lymphadenopathy (R), No lymphadenopathy (L), tender lateral, No tender midline, other ((+) posteriolateral muscle spasm) Cardiovascular: normal peripheral pulses, regular rate, rhythm, no edema, no murmur Respiratory: lungs clear, normal breath sounds, no respiratory distress Gastrointestinal: non tender, soft Extremities: no pedal edema, normal capillary refill Psychiatric: alert, oriented x 3 [place] Nerves: normal hearing, normal speech, PERRL Coordination/Gait: normal finger to nose, normal gait, negative Romberg's sign Motor/Sensory: no motor deficit, no sensory deficit, no pronator drift Skin: normal color, warm/dry Progress/Results/Core Measures Results/Orders My Orders Orders - JESSICA REID Ketorolac Injection (Toradol Injection) (02/03/17 13:13) Orphenadrine Injection (Norflex Injectio (02/03/17 13:13) Saline Lock/Iv-Start (02/03/17 13:13) Ondansetron Injection (Zofran Injectio (02/03/17 13:15) Ns Iv 1000 Ml (Sodium Chloride 0.9%) (02/03/17 13:13) Diphenhydramine Tablet (Benadryl Tablet) (02/03/17 13:15) Morphine Injection (Morphine Injection (02/03/17 14:23) Hydromorphone Injection (Dilaudid Inject (02/03/17 15:38) Dexamethasone Pf Injection (Decadron Pf (02/03/17 15:38) Medications Given in ED Current Medications Medications Dose Ordered Sig/Ronna Route Start Time Stop Time Status Last Admin Dose Admin Diphenhydramine HCl 25 mg ONCE ONCE PO 02/03/17 13:15 02/03/17 13:16 DC 02/03/17 14:00 25 MG Ondansetron HCl 4 mg ONCE ONCE IVP 02/03/17 13:15 02/03/17 13:16 DC 02/03/17 14:00 4 MG Sodium Chloride 1,000 ml @ 0 mls/hr Q0M ONCE IV 02/03/17 13:13 02/03/17 13:16 DC 02/03/17 14:00 1,000 MLS/HR Vital Signs/I&O Vital Sign - Last 12Hours 02/03/17 02/03/17 12:59 14:00 Temp 97.0 97.0 Pulse 96 Resp 20 B/P (MAP) 151/95 Pulse Ox 97 O2 Delivery Room Air Blood Pressure Mean: 113 Departure Communication Progress Notes patient seen and evaluated. patient reports continued headache after the toradol, norflex, and morphine. EMR reviewed with patient frequently requiring decadron and morphine or dilaudid for her migraines. Patient given 1 mg of dilaudid and 10 mg of decadron with improvement in symptoms. patient states headache is resolved at this time. proceed with [facility] to home. Impression Impression: Primary Impression: Tension type headache Qualified Codes: G44.209 - Tension-type headache, unspecified, not intractable Disposition: 01 HOME, SELF-CARE Condition: Improved Departure-Patient Inst. Decision time for Depature: 15:21 Referrals: [facility] (PCP/Family) Primary Care Physician Patient Instructions: Tension Headache (DC) Add. Discharge Instructions: All discharge instructions reviewed with patient and/or family. Voiced understanding. Medications as instructed. Ibuprofen 800 mg by mouth every 8 hours as needed for pain or headache. Drink plenty of fluids. Rest. Follow- up with your family practitioner for recheck as an outpatient. Return to the emergency department for worsened symptoms or any other concerns. Scripts Tramadol HCl (Tramadol HCl) 50 Mg Tablet 50 MG PO Q4H Y for HEADACHE, #14 TAB 0 Refills Prov: JESSICA REID 02/03/17 Cyclobenzaprine HCl (Cyclobenzaprine HCl) 10 Mg Tablet 10 MG PO Q8H Y for SPASMS, #14 TAB 0 Refills Prov: JESSICA REID 02/03/17 Prednisone (Prednisone) 20 Mg Tab 40 MG PO DAILY, #10 TAB 0 Refills Prov: JESSICA REID 02/03/17 JESSICA REID Feb 03, 2017 13:49
[2017-02-03] MEDS ORDERED: morphine INJ 10 MG/ML 1ML (SYR OR VIAL) IVP STA (14:23)
[2017-02-03] MEDS ORDERED: PRD20T PO (15:23)
[2017-02-03] MEDS ORDERED: CYCL10TA9 PO (15:23)
[2017-02-03] MEDS ORDERED: TRAM50TA2 PO (15:24)
[2017-02-03] MEDS ORDERED: DEXAMETHASONE PF 10 MG/ML (DECADRON) VIAL IV STA (15:38)
[2017-02-03] MEDS ORDERED: HYDROmorphone (DILAUDID) 2 MG/ML VIAL IVP STA (15:38)
[2017-02-03 17:01] VITALS: BP 138/93
== END 2017-02-03 16:59 | disposition home or self-care (01) ==
LOC: EDUNIT# 12:46 → ER 12:48
DX: G44.209 Tension-type headache, unspecified, not intractable (principal); J45.909 Unspecified asthma, uncomplicated; E78.00 Pure hypercholesterolemia, unspecified; I10 Essential (primary) hypertension; K21.9 Gastro-esophageal reflux disease without esophagitis; M19.90 Unspecified osteoarthritis, unspecified site; M54.9 Dorsalgia, unspecified; G89.29 Other chronic pain; E05.90 Thyrotoxicosis, unspecified without thyrotoxic crisis or storm; E11.9 Type 2 diabetes mellitus without complications; E66.9 Obesity, unspecified; F31.9 Bipolar disorder, unspecified; F41.9 Anxiety disorder, unspecified; Z68.41 Body mass index [BMI] 40.0-44.9, adult; Z79.84 Long term (current) use of oral hypoglycemic drugs
CPT/HCPCS: 96361; 96374; 96375

== ENCOUNTER 2017-03-07 21:03 | Emergency (ER) | payer BC ==
[~2017-03-07] VITALS: Ht 160 cm; Wt 117.9 kg
[2017-03-07] MEDS ORDERED: NS IV 1000 ML 1,000 ML IV ONE (21:26)
[2017-03-07] MEDS ORDERED: KETOROLAC 30 MG/ML VIAL IVP ONE (21:30)
[2017-03-07 21:44] LABS: BASOPHILS % (AUTO) 1 % (0-10); EOSINOPHILS # (AUTO) 0.3 10^3/uL (0.0-0.3); EOSINOPHILS % (AUTO) 4 % (0-10); LYMPHOCYTES # (AUTO) 2.3 X 10^3 (1.0-4.0); LYMPHOCYTES % (AUTO) 38 % (12-44); MEAN CORPUSCULAR HEMOGLOBIN 30 PG (25-34); MEAN CORPUSCULAR HGB CONC 35 G/DL (32-36); MEAN CORPUSCULAR VOLUME 86 FL (80-99); MEAN PLATELET VOLUME 9.6 FL (7.4-10.4); MONOCYTES # (AUTO) 0.5 X 10^3 (0.0-1.0); MONOCYTES % (AUTO) 9 % (0-12); NEUTROPHILS % (AUTO) 49 % (42-75); PLATELET COUNT 201 10^3/uL (130-400); RED CELL DISTRIBUTION WIDTH 13.8 % (10.0-14.5); WHITE BLOOD COUNT 6.1 10^3/uL (4.3-11.0)
[2017-03-07 22:08] LABS: ALANINE AMINOTRANSFERASE 92 U/L (0-55); ANION GAP 14 MMOL/L (5-14); ASPARTATE AMINO TRANSFERASE 47 U/L (5-34); BILIRUBIN,TOTAL 0.5 MG/DL (0.1-1.0); BLOOD UREA NITROGEN 8 MG/DL (7-18); BUN/CREATININE RATIO 11; CALCIUM 10.8 MG/DL (8.5-10.1); CARBON DIOXIDE 20 MMOL/L (21-32); CHLORIDE 108 MMOL/L (98-107); CREATININE SERUM 0.74 MG/DL (0.60-1.30); GFR ESTIMATED > 60; GLUCOSE 132 MG/DL (70-105); POTASSIUM 3.5 MMOL/L (3.6-5.0); SODIUM 142 MMOL/L (135-145); TOTAL PROTEIN 6.5 GM/DL (6.4-8.2); hs C REACTIVE PROTEIN 0.58 MG/DL (0.00-0.50)
[2017-03-07] MEDS ORDERED: fentaNYL INJECTION 100 MCG/2 ML AMP IVP ONE (23:15)
[2017-03-07] MEDS ORDERED: methylPREDNISolone 40 MG/ML (Solu-MEDROL) VIAL IV ONE (23:15)
[2017-03-07] MEDS ORDERED: ORPHENADRINE 60 MG/2 ML (NORFLEX) AMP IV ONE (23:15)
[2017-03-07] MEDS ORDERED: AMOX500C2 PO (23:33)
--- NOTE | 2017-03-07 23:33 | ED Headache ---
General Chief Complaint: Head/Cervical Problems Stated Complaint: MIGRAINE X7 DAYS Nursing Triage Note: posterior headache x1 week, right ear pain x5days Nursing Sepsis Screen: No Definite Risk Source: patient Exam Limitations: no limitations History of Present Illness Time seen by provider: 21:14 Initial Comments This 36-year-old woman presents to the emergency room complaining of headache 5 days. She has chronic problems with migraines and takes Topamax for prevention. She does not believe this works. She also complains of right earache. Pain is fairly constant in the occipital region. She last took ibuprofen at 13:00. She denies any nausea or vomiting. She has been having some dizzy spells about 3 or 4 weeks ago which were diagnosed as vertigo. She now only has dizziness occasionally. Although she appears comfortable in the exam room, she rates her pain as 10 out of 10. She states this pain is different than her usual migraine pain and more persistent. She also does not normally have dizziness associated with her headaches. Patient specifically has tenderness to palpation over the right mastoid. Allergies and Home Medications Allergies Coded Allergies: azithromycin (Verified Allergy, Unknown, 09/05/16) aspirin (Verified Adverse Reaction, Intermediate, VOMITING, 09/05/16) acetaminophen (Unverified Adverse Reaction, Unknown, 09/05/16) PT IS NOT SUPPOSE TO TAKE TYLENOL DUE TO LIVER DISEASE Home Medications Alprazolam 1 Mg Tablet, 1 MG PO TID, (Reported) Amoxicillin 500 Mg Capsule, 1,000 MG PO BID, #40 Prescribed by: RANADL WALSH on 03/07/17 2333 Cyclobenzaprine HCl 10 Mg Tablet, 10 MG PO Q8H PRN for SPASMS, #14 Ref 0 Prescribed by: JESSICA REID on 02/03/17 1523 Lisinopril 20 Mg Tablet, 20 MG PO DAILY, #30 Ref 0 Prescribed by: JESSICA REID on 09/09/15 2157 Metformin HCl 1,000 Mg Tablet, 1,000 MG PO BID, (Reported) Metoprolol Succinate 25 Mg Tab.er.24h, Unknown Dose PO DAILY, (Reported) Pantoprazole Sodium 40 Mg Tablet.dr, 40 MG PO DAILY, #60 Ref 2 Prescribed by: MAG MALONE [facility] on 09/09/16 1159 Prednisone 20 Mg Tab, 40 MG PO DAILY, #10 Ref 0 Prescribed by: JESSICA REID on 02/03/17 1523 Ranitidine HCl 150 Mg Tablet, 150 MG PO BID, (Reported) Risperidone 1 Mg Tablet, 1 TAB PO UD, #30 (Reported) Sucralfate 1 Gm Tablet, 1 GM PO ACHS, (Reported) Tramadol HCl 50 Mg Tablet, 50 MG PO Q4H PRN for HEADACHE, #14 Ref 0 Prescribed by: JESSICA REID on 02/03/17 1524 Constitutional: no symptoms reported Eyes: No Symptoms Reported Ears, Nose, Mouth, Throat: no symptoms reported Respiratory: no symptoms reported Cardiovascular: no symptoms reported Gastrointestinal: no symptoms reported Genitourinary: no symptoms reported : No Musculoskeletal: no symptoms reported Skin: no symptoms reported Psychiatric/Neurological: See HPI Past Aejqboe-Spyhcw-Mjznvt Hx Patient Social History Alcohol Use: Denies Use Recreational Drug Use: No Smoking Status: Never a Smoker 2nd Hand Smoke Exposure: No Recent Foreign Travel: No Contact w/Someone Who Travel: No Recent Infectious Disease Expo: No Recent Hopitalizations: No Immunizations Up To Date Tetanus Booster (TDap): Less than 5yrs Date of Pneumonia Vaccine: May 03, 2012 Date of Influenza Vaccine: May 03, 2012 Seasonal Allergies Seasonal Allergies: Yes Surgeries HX Surgeries: Yes (SKIN GRAFT FOR GREWAL, D&C, LAPAROSCOPY, ABSCESS I&D) Surgeries: Adenoidectomy, Appendectomy, Section, Hysterectomy, Oophorectomy, Tonsillectomy Respiratory Hx Respiratory Disorders: Yes Respiratory Disorders: Asthma Cardiovascular Hx Cardiac Disorders: Yes Cardiac Disorders: Heart Murmur, High Cholesterol, Hypertension Neurological Hx Neurological Disorders: Yes Neurological Disorders: Headaches /Migraines Reproductive System : No Hx Reproductive Disorders: No Sexually Transmitted Disease: No HIV/AIDS: No Female Reproductive Disorders: Menstrual Problems, 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 Genitourinary Hx Genitourinary Disorders: Yes Genitourinary Disorders: Kidney Stones, UTI-Chronic Gastrointestinal Hx Gastrointestinal Disorders: Yes (MORALES (FATTY LIVER)) Gastrointestinal Disorders: Gastroesophageal Reflux, Ulcer Musculoskeletal Hx Musculoskeletal Disorders: Yes (RESTLESS LEG SYNDROME, SCIATICA) Musculoskeletal Disorders: Degenerate Disk Disease, Arthritis, Chronic Back Pain Endocrine Hx Endocrine Disorders: Yes (HYPER PARATHYROID DISEASE, OBESITY) Endocrine Disorders: Parathyroid Disease, Diabetes, Non-Insulin dep HEENT HX ENT Disorders: Yes (GLASSES) Loss of Vision: Bilateral Hearing Impairment: Denies Cancer Hx Cancer: No Psychosocial Hx Psychiatric Problems: Yes Behavioral Health Disorders: Anxiety, Bipolar, Depression Integumentary HX Skin/Integumentary Disorder: No Blood Transfusions Hx Blood Disorders: No Adverse Reaction to a Blood Tr: No Family Medical History Significant Family History: No Pertinent Family Hx Physical Exam Vital Signs Vital Sign - Last 12Hours 03/07/17 21:20 Temp 97.6 Pulse 94 Resp 18 B/P (MAP) 141/107 Pulse Ox 98 O2 Delivery Room Air Capillary Refill : Less Than 3 Seconds General Appearance: WD/WN, no apparent distress, obese HEENT: PERRL/EOMI, normal ENT inspection, TMs normal, other (Significant gingivitis throughout and deep dental caries on the right lower molars. Tenderness directly over the right mastoid) Neck: supple, normal inspection Cardiovascular: regular rate, rhythm, no edema, no murmur Respiratory: lungs clear, normal breath sounds, no respiratory distress, no accessory muscle use Gastrointestinal: normal bowel sounds, non tender, soft Extremities: normal inspection, no pedal edema Psychiatric: alert, oriented x 3 Crainal Nerves: normal hearing, normal speech, PERRL Coordination/Gait: normal gait Motor/Sensory: no motor deficit, no sensory deficit Skin: normal color, warm/dry Progress/Results/Core Measures Results/Orders Lab Results Laboratory Tests Test 03/07/17 21:35 Range/Units White Blood Count 6.1 4.3-11.0 10^3/uL Red Blood Count 4.30 L 4.35-5.85 10^6/uL Hemoglobin 12.9 11.5-16.0 G/DL Hematocrit 37 35-52 % Mean Corpuscular Volume 86 80-99 FL Mean Corpuscular Hemoglobin 30 25-34 PG Mean Corpuscular Hemoglobin Concent 35 32-36 G/DL Red Cell Distribution Width 13.8 10.0-14.5 % Platelet Count 201 130-400 10^3/uL Mean Platelet Volume 9.6 7.4-10.4 FL Neutrophils (%) (Auto) 49 42-75 % Lymphocytes (%) (Auto) 38 12-44 % Monocytes (%) (Auto) 9 0-12 % Eosinophils (%) (Auto) 4 0-10 % Basophils (%) (Auto) 1 0-10 % Neutrophils # (Auto) 3.0 1.8-7.8 X 10^3 Lymphocytes # (Auto) 2.3 1.0-4.0 X 10^3 Monocytes # (Auto) 0.5 0.0-1.0 X 10^3 Eosinophils # (Auto) 0.3 0.0-0.3 10^3/uL Basophils # (Auto) 0.0 0.0-0.1 10^3/uL Sodium Level 142 135-145 MMOL/L Potassium Level 3.5 L 3.6-5.0 MMOL/L Chloride Level 108 H 98-107 MMOL/L Carbon Dioxide Level 20 L 21-32 MMOL/L Anion Gap 14 5-14 MMOL/L Blood Urea Nitrogen 8 7-18 MG/DL Creatinine 0.74 0.60-1.30 MG/DL Estimat Glomerular Filtration Rate > 60 BUN/Creatinine Ratio 11 Glucose Level 132 H 70-105 MG/DL Calcium Level 10.8 H 8.5-10.1 MG/DL Total Bilirubin 0.5 0.1-1.0 MG/DL Aspartate Amino Transf (AST/SGOT) 47 H 5-34 U/L Alanine Aminotransferase (ALT/SGPT) 92 H 0-55 U/L Alkaline Phosphatase 88 40-136 U/L C-Reactive Protein High Sensitivity 0.58 H 0.00-0.50 MG/DL Total Protein 6.5 6.4-8.2 GM/DL Albumin 4.0 3.2-4.5 GM/DL My Orders Orders - RANDAL EDMOND MD Cbc With Automated Diff (03/07/17 21:26) Comprehensive Metabolic Panel (03/07/17 21:26) Hs C Reactive Protein (03/07/17 21:26) Saline Lock/Iv-Start (03/07/17 21:26) Saline Lock/Iv-Start (03/07/17 21:26) Ns Iv 1000 Ml (Sodium Chloride 0.9%) (03/07/17 21:26) Ketorolac Injection (Toradol Injection) (03/07/17 21:30) Ct Head Wo (03/07/17 21:26) Orphenadrine Injection (Norflex Injectio (03/07/17 23:15) Methylprednisolone Sod Succ (Solu-Medrol (03/07/17 23:15) Fentanyl Injection (Sublimaze Injection (03/07/17 23:15) Medications Given in ED Vital Signs/I&O Vital Sign - Last 12Hours 03/07/17 03/07/17 03/07/17 21:20 21:37 23:41 Temp 97.6 97.6 97.6 Pulse 94 74 Resp 18 16 B/P (MAP) 141/107 Pulse Ox 98 97 O2 Delivery Room Air Room Air Blood Pressure Mean: 118 Progress Note : Time: 13:[address] was ordered to evaluate for possible mastoiditis. Patient has tenderness directly over the mastoid and describes new symptoms of dizziness and pain in the occipital region not typically associated with her migraines. CT of the head was viewed by me and [employer] report reviewed. No evidence of intracranial abnormalities or mastoid sinus disease. Patient reports her pain is unimproved with IV fluids and Toradol. She is being treated with Norflex, Solu-Medrol 40 mg, and fentanyl by IV route. Plan is for dismissal after pain is under control. Diagnostic Imaging Diagonstic Imaging: CT Plain Films/CT/US/NM/MRI: head Comments CT head viewed by me and [employer] report reviewed. There were no intracranial abnormalities. Mastoid air cells and visualized sinuses were clear. No evidence of acute stroke. Departure Impression Impression: Primary Impression: Headache Qualified Codes: R51 - Headache Additional Impressions: Dental caries Gingivitis Disposition: 01 HOME, SELF-CARE Condition: Improved Departure-Patient Inst. Decision time for Depature: 23:15 Referrals: [facility] (PCP/Family) Primary Care Physician Patient Instructions: Headache, Adult (DC) Add. Discharge Instructions: You may continue treating your headache with ibuprofen up to 800 mg every 8 hours as needed. Contact your primary care provider in the morning for further instructions. Stay well-hydrated. Monitor your blood sugars closely for the next couple of days since you are given steroids. Start your antibiotics for treatment of dental caries and gingivitis. Please see a dentist as soon as possible. [place] your teeth gently twice daily with a soft bristle toothbrush. Your dental care is very important because of your diabetes. It is likely also contributing to your headaches. Rinse with antiseptic mouthwash after brushing. Return to the emergency room if symptoms worsen All discharge instructions reviewed with patient and/or family. Voiced understanding. Scripts Amoxicillin (Amoxicillin) 500 Mg Capsule 1000 MG PO BID, #40 CAP Prov: RANDAL EDOMND MD 03/07/17 RANDAL EDMOND MD Mar 07, 2017 23:33
[2017-03-07 23:41] VITALS: BP 149/93
--- NOTE | 2017-03-08 08:02 | Diagnostic Imaging Report ---
PROCEDURE: CT head without contrast. TECHNIQUE: Multiple contiguous axial images were obtained through the brain without the use of intravenous contrast. INDICATION: Headache. COMPARISON: 09/09/2015. FINDINGS: Ventricles normal in size, shape, and position. There is no midline shift or mass effect. There is no hemorrhage or evidence of acute ischemia. The bony calvarium, visualized paranasal sinuses, and mastoids are normal. IMPRESSION: Negative CT head. Agree with preliminary report. Dictated by: Dictated on workstation # [id number]
== END 2017-03-07 23:41 | disposition home or self-care (01) ==
LOC: EDUNIT# 21:03 → ER 21:04
DX: R51 Headache (principal); K05.10 Chronic gingivitis, plaque induced; K02.9 Dental caries, unspecified; F41.9 Anxiety disorder, unspecified; F31.9 Bipolar disorder, unspecified; E11.9 Type 2 diabetes mellitus without complications; K21.9 Gastro-esophageal reflux disease without esophagitis; M47.9 Spondylosis, unspecified; G25.81 Restless legs syndrome; E78.00 Pure hypercholesterolemia, unspecified; I10 Essential (primary) hypertension; Z90.49 Acquired absence of other specified parts of digestive tract; Z90.89 Acquired absence of other organs; Z87.59 Personal history of other complications of pregnancy, childbirth and the puerperium; Z90.710 Acquired absence of both cervix and uterus; Z87.442 Personal history of urinary calculi
CPT/HCPCS: 36415; 70450; 80053; 85025; 86141; 96361; 96374; 96375

== ENCOUNTER 2017-04-25 14:49 | Emergency (ER) | payer BC | END 2017-04-25 16:14 | disposition left against medical advice (07) | LOC: EDUNIT# 14:49 → ER 14:51 | DX: R51 Headache (principal); R10.9 Unspecified abdominal pain ==

== ENCOUNTER 2017-05-01 18:47 | Emergency (ER) | payer BC ==
[~2017-05-01] VITALS: Ht 160 cm; Wt 119.7 kg
[2017-05-01] MEDS ORDERED: ESCI5TAB12 PO (19:07)
[2017-05-01] MEDS ORDERED: SULF1TAB35 PO (19:07)
[2017-05-01 22:17] VITALS: BP 143/87
[2017-05-01 22:46] LABS: BILIRUBIN,URINE NEGATIVE (NEGATIVE); KETONES,URINE 4+ (NEGATIVE); LEUKOCYTE ESTERASE ,URINE 1+ (NEGATIVE); NITRITE,URINE NEGATIVE (NEGATIVE); PH,URINE 5 (5-9); PROTEIN,URINE 1+ (NEGATIVE); UROBILINOGEN,URINE NORMAL (NORMAL)
[2017-05-01] MEDS ORDERED: ONDANSETRON 4 MG (ZOFRAN) ORAL DISSOLVE TAB SL ONE (23:15)
[2017-05-02] MEDS ORDERED: ONDA4TAB8 SL (00:08)
[2017-05-02] MEDS ORDERED: RX-ONDANSETRON 4 MG ODT (ZOFRAN) PPK #4 SL STA (00:08)
--- NOTE | 2017-05-02 00:08 | ED GI ---
General Chief Complaint: Abdominal/GI Problems Stated Complaint: DIZZINESS/"DOESN'T FEEL WELL" Nursing Triage Note: PT HERE WITH C/O N/V/D, UTI, DIZZY FOR 2 WEEKS, PT CURRENTLY TAKING BACTRIM FOR UTI, PT WAS SEEN IN [place] FOR SAME THING ON 04/25/17. PT WAS HERE ON THURSDAY AND LEFT WITHOUT BEING SEEN DUE TO LONG WAIT TIMES. Sepsis Screen: No Definite Risk Allergies and Home Medications Allergies Coded Allergies: azithromycin (Verified Allergy, Unknown, 09/05/16) aspirin (Verified Adverse Reaction, Intermediate, VOMITING, 09/05/16) acetaminophen (Unverified Adverse Reaction, Unknown, 09/05/16) PT IS NOT SUPPOSE TO TAKE TYLENOL DUE TO LIVER DISEASE Home Medications Alprazolam 1 Mg Tablet, 1 MG PO TID, (Reported) Escitalopram Oxalate 5 Mg Tablet, 5 MG PO, (Reported) Metformin HCl 1,000 Mg Tablet, 1,000 MG PO BID, (Reported) Metoprolol Succinate 25 Mg Tab.er.24h, Unknown Dose PO DAILY, (Reported) Pantoprazole Sodium 40 Mg Tablet.dr, 40 MG PO DAILY, #60 Ref 2 Prescribed by: MAG TAMEZ on 09/09/16 1159 Risperidone 1 Mg Tablet, 1 TAB PO UD, #30 (Reported) Sulfamethoxazole/Trimethoprim 1 Each Tablet, 1 EACH PO, (Reported) Past Cjfiriw-Uhqbft-Tgmiri Hx Patient Social History Alcohol Use: Denies Use Recreational Drug Use: No Smoking Status: Never a Smoker 2nd Hand Smoke Exposure: No Recent Foreign Travel: No Contact w/Someone Who Travel: No Recent Infectious Disease Expo: No Recent Hopitalizations: No Immunizations Up To Date Tetanus Booster (TDap): Less than 5yrs Date of Pneumonia Vaccine: May 03, 2012 Date of Influenza Vaccine: May 03, 2012 Seasonal Allergies Seasonal Allergies: Yes Surgeries History of Surgeries: Yes (SKIN GRAFT FOR GREWAL, D&C, LAPAROSCOPY, ABSCESS I&D) Surgeries: Adenoidectomy, Appendectomy, Section, Hysterectomy, Oophorectomy, Tonsillectomy Respiratory History of Respiratory Disorde: Yes Respiratory Disorders: Asthma Currently Using CPAP: Yes Currently Using BIPAP: No Cardiovascular History of Cardiac Disorders: Yes Cardiac Disorders: Heart Murmur, High Cholesterol, Hypertension Neurological History of Neurological Disord: Yes Neurological Disorders: Headaches /Migraines Reproductive System Hx Reproductive Disorders: No Sexually Transmitted Disease: No HIV/AIDS: No Female Reproductive Disorders: Menstrual Problems, 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 Genitourinary History of Genitourinary Disor: Yes Genitourinary Disorders: Kidney Stones, UTI-Chronic Gastrointestinal History of Gastrointestinal Di: Yes Gastrointestinal Disorders: Gastroesophageal Reflux, Ulcer Musculoskeletal History of Musculoskeletal Dis: Yes (RESTLESS LEG SYNDROME, SCIATICA) Musculoskeletal Disorders: Degenerate Disk Disease, Arthritis, Chronic Back Pain Endocrine History of Endocrine Disorders: Yes (HYPER PARATHYROID DISEASE, OBESITY) Endocrine Disorders: Parathyroid Disease, Diabetes, Non-Insulin dep HEENT History of HEENT Disorders: No Loss of Vision: Bilateral Hearing Impairment: Denies Cancer History of Cancer: No Psychosocial History of Psychiatric Problem: Yes Behavioral Health Disorders: Anxiety, Bipolar, Depression Integumentary History of Skin or Integumenta: No Blood Transfusions History of Blood Disorders: No Adverse Reaction to a Blood Tr: No Family Medical History Significant Family History: No Pertinent Family Hx Physical Exam Vital Signs VS - Last 72 Hours, by Label 05/01/17 05/01/17 19:00 22:17 Temp 97.2 97.1 Pulse 74 80 Resp 16 16 B/P (MAP) 132/74 143/87 Pulse Ox 98 97 O2 Delivery Room Air Room Air Capillary Refill : Less Than 3 Seconds Progress/Results/Core Measures Results/Orders Lab Results Laboratory Tests Test 05/01/17 22:37 Range/Units Urine Color YELLOW Urine Clarity SLIGHTLY CLOUDY Urine pH 5 5-9 Urine Specific [place] 1.025 H 1.016-1.022 Urine Protein 1+ H NEGATIVE Urine Glucose (UA) NEGATIVE NEGATIVE Urine Ketones 4+ H NEGATIVE Urine Nitrite NEGATIVE NEGATIVE Urine Bilirubin NEGATIVE NEGATIVE Urine Urobilinogen NORMAL NORMAL MG/DL Urine Leukocyte Esterase 1+ H NEGATIVE Urine RBC (Auto) 1+ H NEGATIVE Urine RBC 0-2 /HPF Urine WBC 5-10 H /HPF Urine Squamous Epithelial Cells 10-25 H /HPF Urine Crystals NONE /LPF Urine Bacteria FEW H /HPF Urine Casts NONE /LPF Urine Mucus NEGATIVE /LPF Urine Culture Indicated YES My Orders Orders - RANDAL EDMOND MD Cbc With Automated Diff (05/01/17 21:09) Comprehensive Metabolic Panel (05/01/17 21:09) Ua Culture If Indicated (05/01/17 21:09) Saline Lock/Iv-Start (05/01/17 21:09) Urine Culture (05/01/17 22:37) Ondansetron Oral Dissolve Tab (Zofran (05/01/17 23:15) Medications Given in ED Current Medications Medications Dose Ordered Sig/Ronna Route Start Time Stop Time Status Last Admin Dose Admin Ondansetron HCl 8 mg ONCE ONCE SL 05/01/17 23:15 05/01/17 23:16 DC 05/01/17 23:18 8 MG Vital Signs/I&O Vital Sign - Last 12Hours 05/01/17 05/01/17 19:00 22:17 Temp 97.2 97.1 Pulse 74 80 Resp 16 16 B/P (MAP) 132/74 143/87 Pulse Ox 98 97 O2 Delivery Room Air Room Air Blood Pressure Mean: 105 Progress Note : Progress Note Vital signs were within normal limits. UA was compared with UA from [facility]. She shows less evidence of infection on her UA today. Zofran was administered sublingually and patient was able to tolerate oral water. She was advised to increase her oral fluid intake and it was dismissed with a take-home packet of Zofran. Urine culture from [facility] did show sensitivity to Bactrim. Departure Impression Impression: Primary Impression: Nausea vomiting and diarrhea Additional Impression: Urinary tract infection Qualified Codes: N39.0 - Urinary tract infection, site not specified Disposition: 01 HOME, SELF-CARE Condition: Improved Departure-Patient Inst. Decision time for Depature: 00:00 Referrals: [facility] (PCP/Family) Primary Care Physician Patient Instructions: Diarrhea in Adolescents and Adults, Nausea and Vomiting, Adult, Urinary Tract Infections in Adults Add. Discharge Instructions: Drink plenty of non-caffeinated clear liquids. Gradually advance your diet with small quantities of bland food as tolerated. Complete your antibiotic as previously prescribed. Return to care or contact your primary care provider if you do not continue to improve or if symptoms worsen. All discharge instructions reviewed with patient and/or family. Voiced understanding. Scripts Ondansetron (Zofran Odt) 4 Mg Tab.rapdis 4 MG SL Q4H Y for NAUSEA/VOMITING-1ST LINE, #10 TAB Prov: RANDAL EDMOND MD 05/02/17 RANDAL EDMOND MD May 02, 2017 00:08
[2017-05-02 00:13] VITALS: BP 139/88
== END 2017-05-02 00:13 | disposition home or self-care (01) ==
LOC: EDUNIT# 18:47 → ER 18:48
DX: N39.0 Urinary tract infection, site not specified (principal); R19.7 Diarrhea, unspecified; J45.909 Unspecified asthma, uncomplicated; E78.00 Pure hypercholesterolemia, unspecified; I10 Essential (primary) hypertension; G43.909 Migraine, unspecified, not intractable, without status migrainosus; K21.9 Gastro-esophageal reflux disease without esophagitis; M19.90 Unspecified osteoarthritis, unspecified site; E66.9 Obesity, unspecified; E05.90 Thyrotoxicosis, unspecified without thyrotoxic crisis or storm; E11.9 Type 2 diabetes mellitus without complications; F41.9 Anxiety disorder, unspecified; F31.9 Bipolar disorder, unspecified; Z87.440 Personal history of urinary (tract) infections; Z68.42 Body mass index [BMI] 45.0-49.9, adult; Z87.448 Personal history of other diseases of urinary system; Z79.84 Long term (current) use of oral hypoglycemic drugs; Z90.49 Acquired absence of other specified parts of digestive tract; Z90.89 Acquired absence of other organs; Z90.710 Acquired absence of both cervix and uterus; Z87.19 Personal history of other diseases of the digestive system
CPT/HCPCS: 81000; 87088; 99283

== ENCOUNTER 2017-05-07 07:49 | Emergency (ER) | payer BC ==
[~2017-05-07] VITALS: Ht 160 cm; Wt 118.4 kg
[~2017-05-07 07:49] MED LIST changes: +ESCI5TAB12 PO; +ONDA4TAB8 SL
[2017-05-07] MEDS ORDERED: METO-333 (08:08)
[2017-05-07] MEDS ORDERED: LISI10TA2 (08:08)
--- NOTE | 2017-05-07 08:16 | ED General ---
General Chief Complaint: Cardiac/General Problems Stated Complaint: BP LOW Nursing Triage Note: PT CO OF BEING TIRED, STATES B/P LOW AT HOME TODAY 90'S/60'S.DENIES C/P Nursing Sepsis Screen: No Definite Risk Source of Information: Patient Exam Limitations: No Limitations History of Present Illness Time Seen by Provider: 08:12 Initial Comments The patient is a 36-year-old white female on her 13th contact in 2017. She has been here 3 times in the last 12 days. 4 of her 13 contacts have involved headaches. She reports this morning she awakened and felt dizzy and with a headache. She took her blood pressure and found it to be low. She became alarmed and came here. She denied any orthostatic symptoms. She apparently was assessed started on lisinopril 10 mg daily yesterday [address] Dr[address] Galvez and has been taking metoprolol 12.5 mg daily. She also has sleep apnea and uses a pressure support device at bedtime. Modifying Factors: improves with Medication Allergies and Home Medications Allergies Coded Allergies: azithromycin (Verified Allergy, Unknown, 09/05/16) aspirin (Verified Adverse Reaction, Intermediate, VOMITING, 09/05/16) acetaminophen (Unverified Adverse Reaction, Unknown, 09/05/16) PT IS NOT SUPPOSE TO TAKE TYLENOL DUE TO LIVER DISEASE Home Medications Alprazolam 1 Mg Tablet, 1 MG PO TID, (Reported) Escitalopram Oxalate 5 Mg Tablet, 5 MG PO, (Reported) Lisinopril 10 Mg Tablet, 10, (Reported) Metformin HCl 1,000 Mg Tablet, 1,000 MG PO BID, (Reported) Metoprolol Tartrate 25 Mg Tablet, 25 DAILY, (Reported) Pantoprazole Sodium 40 Mg Tablet., 40 MG PO DAILY, #60 Ref 2 Pres[facility]: [facility] 09/09/16 1159 Risperidone 1 Mg Tablet, 1 TAB PO UD, #30 (Reported) Constitutional: see HPI EENTM: no symptoms reported Respiratory: no symptoms reported Cardiovascular: no symptoms reported Gastrointestinal: no symptoms reported Genitourinary: no symptoms reported Musculoskeletal: no symptoms reported Skin: no symptoms reported Psychiatric/Neurological: No Symptoms Reported Hematologic/Lymphatic: No Symptoms Reported Immunological/Allergic: no symptoms reported Past Rkfxqsk-Mnlyyd-Sgclql Hx Patient Social History Alcohol Use: Denies Use Recreational Drug Use: No Smoking Status: Never a Smoker 2nd Hand Smoke Exposure: No Recent Foreign Travel: No Contact w/Someone Who Travel: No Recent Infectious Disease Expo: No Recent Hopitalizations: No Physical Abuse: No Sexual Abuse: No Immunizations Up To Date Tetanus Booster (TDap): Less than 5yrs Date of Pneumonia Vaccine: May 03, 2012 Date of Influenza Vaccine: May 03, 2012 Seasonal Allergies Seasonal Allergies: Yes Surgeries History of Surgeries: Yes (SKIN GRAFT FOR GREWAL, D&C, LAPAROSCOPY, ABSCESS I&D) Surgeries: Adenoidectomy, Appendectomy, Section, Hysterectomy, Oophorectomy, Tonsillectomy Respiratory History of Respiratory Disorde: Yes Respiratory Disorders: Asthma Currently Using CPAP: Yes Currently Using BIPAP: No Cardiovascular History of Cardiac Disorders: Yes Cardiac Disorders: Heart Murmur, High Cholesterol, Hypertension Neurological History of Neurological Disord: Yes Neurological Disorders: Headaches /Migraines Reproductive System Hx Reproductive Disorders: No Sexually Transmitted Disease: No HIV/AIDS: No Female Reproductive Disorders: Menstrual Problems, 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 Genitourinary History of Genitourinary Disor: Yes Genitourinary Disorders: Kidney Stones, UTI-Chronic Gastrointestinal History of Gastrointestinal Di: Yes Gastrointestinal Disorders: Gastroesophageal Reflux, Ulcer Musculoskeletal History of Musculoskeletal Dis: Yes (RESTLESS LEG SYNDROME, SCIATICA) Musculoskeletal Disorders: Degenerate Disk Disease, Arthritis, Chronic Back Pain Endocrine History of Endocrine Disorders: Yes (HYPER PARATHYROID DISEASE, OBESITY) Endocrine Disorders: Parathyroid Disease, Diabetes, Non-Insulin dep HEENT History of HEENT Disorders: No Loss of Vision: Bilateral Hearing Impairment: Denies Cancer History of Cancer: No Psychosocial History of Psychiatric Problem: Yes Behavioral Health Disorders: Anxiety, Bipolar, Depression Suicide Risk Score: 0 Integumentary History of Skin or Integumenta: No Blood Transfusions History of Blood Disorders: No Adverse Reaction to a Blood Tr: No Family Medical History Significant Family History: No Pertinent Family Hx Physical Exam Vital Signs Vital Sign - Last 12Hours 05/07/17 08:00 Temp 98.1 Pulse 69 Resp 18 B/P (MAP) 130/72 Pulse Ox 96 Capillary Refill : Less Than 3 Seconds General Appearance: Other (flat affect) HEENT: Normal ENT Inspection Neck: Normal Inspection Respiratory: Chest Non Tender, Lungs Clear, Normal Breath Sounds, No Accessory Muscle Use, No Respiratory Distress Cardiovascular: Regular Rate, Rhythm, No Edema, No Gallop, No JVD, No Murmur, Normal Peripheral Pulses Gastrointestinal: Normal Bowel Sounds, No Organomegaly, No Pulsatile Mass, Non Tender, Soft Back: Normal Inspection, No CVA Tenderness, No Vertebral Tenderness Neurologic/Psychiatric: Alert, Oriented x3, No Motor/Sensory Deficits, Normal Mood/Affect Skin: Normal Color, Warm/Dry Lymphatic: No Adenopathy Progress/Results/Core Measures Results/Orders Vital Signs/I&O Vital Sign - Last 12Hours 05/07/17 08:00 Temp 98.1 Pulse 69 Resp 18 B/P (MAP) 130/72 Pulse Ox 96 Blood Pressure Mean: 91 Departure Impression Impression: Primary Impression: hypertension, treated Disposition: HOME, SELF-CARE Condition: Stable/Unchanged Departure-Patient Inst. Decision time for Depature: 08:16 Referrals: [facility] [place] (PCP/Family) Primary Care Physician Add. Discharge Instructions: All discharge instructions reviewed with patient and/or family. Voiced understanding. Continue present blood pressure medicines. Discussion concerns with your provider. MELISSA SOLORIO MD May 07, 2017 08:16
[2017-05-07 08:26] VITALS: BP 128/72
== END 2017-05-07 08:25 | disposition home or self-care (01) ==
LOC: EDUNIT# 07:49 → ER 07:51
DX: I10 Essential (primary) hypertension (principal); F41.9 Anxiety disorder, unspecified; F31.9 Bipolar disorder, unspecified; E11.9 Type 2 diabetes mellitus without complications; M47.9 Spondylosis, unspecified; E66.9 Obesity, unspecified; E78.00 Pure hypercholesterolemia, unspecified; G43.909 Migraine, unspecified, not intractable, without status migrainosus; K21.9 Gastro-esophageal reflux disease without esophagitis; J45.909 Unspecified asthma, uncomplicated; G47.30 Sleep apnea, unspecified; H54.3 Unqualified visual loss, both eyes; Z79.84 Long term (current) use of oral hypoglycemic drugs; Z87.42 Personal history of other diseases of the female genital tract; Z90.710 Acquired absence of both cervix and uterus; Z90.49 Acquired absence of other specified parts of digestive tract; Z87.59 Personal history of other complications of pregnancy, childbirth and the puerperium; Z90.89 Acquired absence of other organs; Z99.89 Dependence on other enabling machines and devices; Z68.42 Body mass index [BMI] 45.0-49.9, adult
CPT/HCPCS: 99283

== ENCOUNTER 2017-07-15 10:51 | Emergency (ER) | payer BC ==
[~2017-07-15] VITALS: Ht 160 cm; Wt 116.6 kg
[~2017-07-15 10:51] MED LIST changes: +LISI10TA2; +METO-333
[2017-07-15] MEDS ORDERED: MONT10TA24 (11:21)
[2017-07-15] MEDS ORDERED: OMEP20CA12 (11:21)
[2017-07-15] MEDS ORDERED: ONDA4TAB8 (11:21)
[2017-07-15] MEDS ORDERED: KETOROLAC 30 MG/ML VIAL IVP STA (11:48)
[2017-07-15] MEDS ORDERED: NS IV 1000 ML 1,000 ML IV ONE (11:48)
[2017-07-15] MEDS ORDERED: ONDANSETRON 4 MG/2 ML (SDV) Z0FRAN IVP ONE (12:00)
[2017-07-15 12:35] LABS: BILIRUBIN,URINE NEGATIVE (NEGATIVE); KETONES,URINE NEGATIVE (NEGATIVE); LEUKOCYTE ESTERASE ,URINE 2+ (NEGATIVE); NITRITE,URINE NEGATIVE (NEGATIVE); PH,URINE 7 (5-9); PROTEIN,URINE NEGATIVE (NEGATIVE); UROBILINOGEN,URINE 1 MG/DL (NORMAL)
--- NOTE | 2017-07-15 12:35 | ED Syncope ---
General Chief Complaint: Dizziness/Syncope Stated Complaint: SYNCOPAL EPISODE/HEADACHE Nursing Triage Note: AMB TO ROOM REPORTS THAT SHE TOOK AND CHILD TO WORK,AND SCHOOL. 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 C/O HEADACHE. REPORTS THAT SAME THING HAPPENED BACK IN MAY HAD NEG WORK UP. Source of Information: Patient Exam Limitations: No Limitations History of Present Illness Time Seen by Provider: 11:37 Initial Comments 37-year-old female patient presents to the emergency department with complaints of syncopal episode this a.m. Patient reports arriving home from dropping off her and daughter this AM at 0720 and getting home. Patient reports the next thing she remembers it was 1030. Does not know if she hit her head. Does report having a headache this a.m. prior to incident. Now complains of increased headache. Chronic neck pain, no worse than usual. Patient normally sees Zuleyka Becker APRN, but denies seeing her or anyone else for this problem. Patient is scheduled to see Deniz Olmstead APRN on August 21. Denies biting her time, urinary incontinence, or bowel incontinence. Patient has at least 4-5 episodes per month and has for several months. Patient states she has been here for this problem several times and is always told "everything is normal." Patient has been told numerous times to follow-up with her PCP for further evaluation and diagnostic studies. Patient continues to drive. Reports syncopal episodes always occur in the morning when she is home alone. BS was 123 prior to arrival. Patient does c/o nausea, sound sensitivity, and photophobia. Location Injury Occurred: home Timing/Prior Episodes: Recent History, Remote History Symptoms Prior to Episode: None Precipitating Factors: None Loss of Consciousness: Unsure Allergies and Home Medications Allergies Coded Allergies: azithromycin (Verified Allergy, Unknown, 09/05/16) aspirin (Verified Adverse Reaction, Intermediate, VOMITING, 09/05/16) acetaminophen (Unverified Adverse Reaction, Unknown, 09/05/16) PT IS NOT SUPPOSE TO TAKE TYLENOL DUE TO LIVER DISEASE Home Medications Alprazolam 1 Mg Tablet, 1 MG PO TID, (Reported) Escitalopram Oxalate 5 Mg Tablet, 5 MG PO, (Reported) Lisinopril 10 Mg Tablet, 10, (Reported) Metformin HCl 1,000 Mg Tablet, 1,000 MG PO BID, (Reported) Metoprolol Tartrate 25 Mg Tablet, 25 DAILY, (Reported) Montelukast Sodium 10 Mg Tablet, (Reported) Omeprazole 20 Mg Capsule., (Reported) Ondansetron 4 Mg Tab.rapdis, (Reported) Pantoprazole Sodium 40 Mg Tablet.dr, 40 MG PO DAILY, #60 Ref 2 Prescribed by: MAG [facility] on 09/09/16 1159 Risperidone 1 Mg Tablet, 1 TAB PO UD, #30 (Reported) Constitutional: No chills, No diaphoresis, No fever, No malaise EENTM: see HPI, other ((+) photophobia and sound sensitivity.), No ear discharge, No ear pain, No eye pain, No hoarseness, No mouth pain, No epistaxis , No nose congestion, No nose pain, No throat pain, No throat swelling Respiratory: No cough, No dyspnea on exertion, No phlegm, No short of breath, No stridor, No wheezing Cardiovascular: No chest pain, No edema, No palpitations, No syncope Gastrointestinal: No abdominal pain, No constipation, No diarrhea, nausea, No vomiting Genitourinary: no symptoms reported Musculoskeletal: see HPI, No back pain, No joint pain, neck pain (chronic neck pain, no worse than usual.) Skin: No change in color, No lumps Psychiatric/Neurological: See HPI, Headache, Denies Numbness, Denies Paresthesia, Denies Seizure, Denies Tingling, Denies Tremors, Denies Weakness All Other Systems Reviewed Negative Unless Noted: Yes (Negative excepted noted.) Past Lbbfdrq-Giadbc-Nopeps Hx Patient Social History Alcohol Use: Denies Use Recreational Drug Use: No Smoking Status: Never a Smoker 2nd Hand Smoke Exposure: No Recent Foreign Travel: No Contact w/Someone Who Travel: No Recent Infectious Disease Expo: No Recent Hopitalizations: No Immunizations Up To Date Tetanus Booster (TDap): Less than 5yrs Date of Pneumonia Vaccine: May 03, 2012 Date of Influenza Vaccine: May 03, 2012 Seasonal Allergies Seasonal Allergies: Yes Surgeries History of Surgeries: Yes (SKIN GRAFT FOR GREWAL, D&C, LAPAROSCOPY, ABSCESS I&D) Surgeries: Adenoidectomy, Appendectomy, Section, Hysterectomy, Oophorectomy, Tonsillectomy Respiratory History of Respiratory Disorde: Yes Respiratory Disorders: Asthma Currently Using CPAP: Yes Currently Using BIPAP: No Cardiovascular History of Cardiac Disorders: Yes Cardiac Disorders: Heart Murmur, High Cholesterol, Hypertension Neurological History of Neurological Disord: Yes Neurological Disorders: Headaches /Migraines Reproductive System Hx Reproductive Disorders: No Sexually Transmitted Disease: No HIV/AIDS: No Female Reproductive Disorders: Menstrual Problems, 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 Genitourinary History of Genitourinary Disor: Yes Genitourinary Disorders: Kidney Stones, UTI-Chronic Gastrointestinal History of Gastrointestinal Di: Yes Gastrointestinal Disorders: Gastroesophageal Reflux, Liver Disease/Jaundice, Ulcer Musculoskeletal History of Musculoskeletal Dis: Yes (RESTLESS LEG SYNDROME, SCIATICA) Musculoskeletal Disorders: Degenerate Disk Disease, Arthritis, Chronic Back Pain Endocrine History of Endocrine Disorders: Yes (HYPER PARATHYROID DISEASE, OBESITY) Endocrine Disorders: Parathyroid Disease, Diabetes, Non-Insulin dep HEENT History of HEENT Disorders: No Loss of Vision: Bilateral Hearing Impairment: Denies Cancer History of Cancer: No Psychosocial History of Psychiatric Problem: Yes Behavioral Health Disorders: Anxiety, Bipolar, Depression Integumentary History of Skin or Integumenta: No Blood Transfusions History of Blood Disorders: No Adverse Reaction to a Blood Tr: No Reviewed Nursing Assessment Reviewed/Agree w Nursing PMH: Yes Family Medical History Significant Family History: No Pertinent Family Hx Physical Exam Vital Signs Vital Sign - Last 12Hours 07/15/17 11:00 Temp 97.8 Pulse 81 Resp 18 B/P (MAP) 164/88 (113) Pulse Ox 97 O2 Delivery Room Air Capillary Refill : Greater Than 3 Seconds General Appearance: No Apparent Distress, WD/WN HEENT: PERRL/EOMI, TMs Normal, Normal ENT Inspection, Pharynx Normal, Photophobia, Other (normocephalic, atraumatic.) Neck: Full Range of Motion, Normal Inspection, Supple, Tender Lateral, No Tender Midline Cardiovascular: Regular Rate, Rhythm, No Edema, No Murmur, Normal Peripheral Pulses Respiratory: Chest Non Tender, Lungs Clear, Normal Breath Sounds, No Accessory Muscle Use, No Respiratory Distress Gastrointestinal: Normal Bowel Sounds, No Organomegaly, Non Tender, Soft Back: Normal Inspection, No Vertebral Tenderness Extremities: Normal Capillary Refill, Normal Inspection, Non Tender, No Pedal Edema Neurologic/Psychiatric: Alert, Oriented x3, No Motor/Sensory Deficits, Normal 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, 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 as 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 Cranial Nerves: Normal Hearing, Normal Speech, PERRL Coordination/Gait: Normal Finger to Nose, Normal Gait, Negative Romberg's Sign Motor/Sensory: No Motor Deficit, No Sensory Deficit, No Pronator Drift Skin: Normal Color, Warm/Dry, No Ecchymosis (no evidence of trauma) Progress/Results/Core Measures Results/Orders Lab Results Laboratory Tests Test 07/15/17 12:29 07/15/17 12:42 Range/Units Urine Color YELLOW Urine Clarity CLEAR Urine pH 7 5-9 Urine Specific [place] 1.010 L 1.016-1.022 Urine Protein NEGATIVE NEGATIVE Urine Glucose (UA) NEGATIVE NEGATIVE Urine Ketones NEGATIVE NEGATIVE Urine Nitrite NEGATIVE NEGATIVE Urine Bilirubin NEGATIVE NEGATIVE Urine Urobilinogen 1 NORMAL MG/DL Urine Leukocyte Esterase 2+ H NEGATIVE Urine RBC (Auto) NEGATIVE NEGATIVE Urine RBC RARE /HPF Urine WBC 2-5 /HPF Urine Squamous Epithelial Cells 5-10 /HPF Urine Crystals NONE /LPF Urine Bacteria FEW H /HPF Urine Casts NONE /LPF Urine Mucus NEGATIVE /LPF Urine Culture Indicated YES White Blood Count 5.2 4.3-11.0 10^3/uL Red Blood Count 4.52 4.35-5.85 10^6/uL Hemoglobin 13.8 11.5-16.0 G/DL Hematocrit 40 35-52 % Mean Corpuscular Volume 89 80-99 FL Mean Corpuscular Hemoglobin 31 25-34 PG Mean Corpuscular Hemoglobin Concent 34 32-36 G/DL Red Cell Distribution Width 13.2 10.0-14.5 % Platelet Count 166 130-400 10^3/uL Mean Platelet Volume 9.9 7.4-10.4 FL Neutrophils (%) (Auto) 55 42-75 % Lymphocytes (%) (Auto) 31 12-44 % Monocytes (%) (Auto) 6 0-12 % Eosinophils (%) (Auto) 7 0-10 % Basophils (%) (Auto) 1 0-10 % Neutrophils # (Auto) 2.8 1.8-7.8 X 10^3 Lymphocytes # (Auto) 1.6 1.0-4.0 X 10^3 Monocytes # (Auto) 0.3 0.0-1.0 X 10^3 Eosinophils # (Auto) 0.4 H 0.0-0.3 10^3/uL Basophils # (Auto) 0.0 0.0-0.1 10^3/uL Prothrombin Time 13.7 12.2-14.7 SEC INR Comment 1.0 0.8-1.4 Activated Partial Thromboplast Time 28 24-35 SEC Sodium Level 139 135-145 MMOL/L Potassium Level 4.0 3.6-5.0 MMOL/L Chloride Level 104 98-107 MMOL/L Carbon Dioxide Level 29 21-32 MMOL/L Anion Gap 6 5-14 MMOL/L Blood Urea Nitrogen 8 7-18 MG/DL Creatinine 0.72 0.60-1.30 MG/DL Estimat Glomerular Filtration Rate > 60 BUN/Creatinine Ratio 11 Glucose Level 117 H 70-105 MG/DL Calcium Level 10.2 H 8.5-10.1 MG/DL Magnesium Level 1.8 1.8-2.4 MG/DL Total Bilirubin 0.7 0.1-1.0 MG/DL Aspartate Amino Transf (AST/SGOT) 242 H 5-34 U/L Alanine Aminotransferase (ALT/SGPT) 275 H 0-55 U/L Alkaline Phosphatase 82 40-136 U/L Total Creatine Kinase 48 29-168 U/L Troponin I < 0.30 <0.30 NG/ML Total Protein 7.5 6.4-8.2 GM/DL Albumin 4.1 3.2-4.5 GM/DL TSH [place] Testing 1.23 0.35-4.94 UIU/ML My Orders Orders - JESSICA REID Ct Head Wo (07/15/17 11:48) Cbc With Automated Diff (07/15/17 11:48) Comprehensive Metabolic Panel (07/15/17 11:48) Creatine Kinase (07/15/17 11:48) Magnesium (07/15/17 11:48) Protime With Inr (07/15/17 11:48) Partial Thromboplastin Time (07/15/17 11:48) Thyroid Analyzer (07/15/17 11:48) Troponin I (07/15/17 11:48) Ua Culture If Indicated (07/15/17 11:48) Saline Lock/Iv-Start (07/15/17 11:48) Ekg Tracing (07/15/17 11:48) Monitor-Rhythm Ecg Trace Only (07/15/17 11:48) Orthostatic Vital Signs (Adult (07/15/17 11:48) Ns Iv 1000 Ml (Sodium Chloride 0.9%) (07/15/17 11:48) Ondansetron Injection (Zofran Injectio (07/15/17 12:00) Ketorolac Injection (Toradol Injection) (07/15/17 11:48) Urine Culture (07/15/17 12:29) Medications Given in ED Current Medications Medications Dose Ordered Sig/Ronna Route Start Time Stop Time Status Last Admin Dose Admin Ondansetron HCl 4 mg ONCE ONCE IVP 07/15/17 12:00 07/15/17 12:01 DC 07/15/17 12:40 4 MG Sodium Chloride 1,000 ml @ 0 mls/hr Q0M ONCE IV 07/15/17 11:48 07/15/17 11:57 DC 07/15/17 12:39 1,000 MLS/HR Vital Signs/I&O Vital Sign - Last 12Hours 07/15/17 07/15/17 11:00 12:52 Temp 97.8 Pulse 81 67 83 85 Resp 18 B/P (MAP) 164/88 (113) 113/67 (82) 119/42 (67) 115/64 (81) Pulse Ox 97 O2 Delivery Room Air Blood Pressure Mean: 113 ECG Initial ECG Impression Date: Jul 15, 2017 Initial ECG Impression Time: 12:20 Initial ECG Rate: 81 Initial ECG Rhythm: Normal Sinus Initial ECG Intervals: Normal Initial ECG Impression: Normal Initial ECG Comparisson: Unchanged Comment Sinus rhythm. No STEMI or arrhythmia needed. ECG reviewed with Dr. Mata. Diagnostic Imaging Diagonstic Imaging: CT Plain Films/CT/US/NM/MRI: head Comments CT HEAD WO PROCEDURE: CT head without contrast. TECHNIQUE: Multiple contiguous axial images were obtained through the brain without the use of intravenous contrast. INDICATION: Dizziness and headache. COMPARISON: 03/07/2017. FINDINGS: No acute intracranial hemorrhage, mass effect or edema is demonstrated. The dumont -white junction is preserved. The ventricles appear normal. No focal abnormalities demonstrated. The paranasal sinuses and mastoids are clear as visualized. IMPRESSION: No evidence of an acute intracranial abnormality. Dictated on workstation # [id number] Reviewed: Reviewed by Me (radiology report reviewed by me) Departure Communication (Admissions) Progress Notes Laboratory and diagnostic findings discussed with the patient. Patient reports feeling better with Toradol and IV fluids. Plan for discharge to home. Patient to follow-up with [facility] this week for a recheck and to call today for appointment time. NO DRIVING until released by her primary care provider. Impression Impression: Primary Impression: Syncope Additional Impression: Minor head injury Disposition: 01 HOME, SELF-CARE Condition: Improved Departure-Patient Inst. Decision time for Depature: 13:44 Referrals: [facility] (PCP/Family) Primary Care Physician Patient Instructions: Minor Head Injury (DC), Syncope (Fainting) (DC) Add. Discharge Instructions: All discharge instructions reviewed with patient and/or family. Voiced understanding. Continue usual home medications. Ibuprofen or Aleve [id number] as directed for headache and pain as needed. NO DRIVING UNTIL RELEASED BY YOUR PRIMARY CARE PROVIDER. Ice pack for 20 minute intervals as needed for pain, then use a heating pad or pack as needed for pain. No strenuous activity or activities which may result and head injury until released by your primary care provider. Follow-up with [facility] this week for recheck, call for appointment time today. Return to the emergency department for worsened headache, confusion, changes in vision, changes in behavior, slurred speech, facial drooping, fever, numbness, weakness, chest pain, shortness of air, seizure, vomiting, or any other concerns. Work/School Note: Work Release Form Date Seen in the Emergency Department: Jul 15, 2017 Return to Work: Jul 15, 2017 Restrictions: Need Release from Doctor Other Restrictions Listed Below: No strenuous activity until released by your primary care provider. Restrictions: NO DRIVING UNTIL RELEASED BY YOUR FAMILY PRACTITIONER. Copy Copies To 1: JOE JONES GRETCHEN L PA Jul 15, 2017 12:35
[2017-07-15 12:52] VITALS: BP_SYST 113; BP_SYST 115; BP_SYST 119; BP_DIAS 42; BP_DIAS 64; BP_DIAS 67
[2017-07-15 12:52] LABS: BASOPHILS % (AUTO) 1 % (0-10); EOSINOPHILS # (AUTO) 0.4 10^3/uL (0.0-0.3); EOSINOPHILS % (AUTO) 7 % (0-10); LYMPHOCYTES # (AUTO) 1.6 X 10^3 (1.0-4.0); LYMPHOCYTES % (AUTO) 31 % (12-44); MEAN CORPUSCULAR HEMOGLOBIN 31 PG (25-34); MEAN CORPUSCULAR HGB CONC 34 G/DL (32-36); MEAN CORPUSCULAR VOLUME 89 FL (80-99); MEAN PLATELET VOLUME 9.9 FL (7.4-10.4); MONOCYTES # (AUTO) 0.3 X 10^3 (0.0-1.0); MONOCYTES % (AUTO) 6 % (0-12); NEUTROPHILS # (AUTO) 2.8 X 10^3 (1.8-7.8); NEUTROPHILS % (AUTO) 55 % (42-75); PLATELET COUNT 166 10^3/uL (130-400); RED BLOOD COUNT 4.52 10^6/uL (4.35-5.85); RED CELL DISTRIBUTION WIDTH 13.2 % (10.0-14.5); WHITE BLOOD COUNT 5.2 10^3/uL (4.3-11.0)
[2017-07-15 12:58] LABS: PROTHROMBIN TIME PATIENT 13.7 SEC (12.2-14.7)
[2017-07-15 13:06] LABS: ALANINE AMINOTRANSFERASE 275 U/L (0-55); ALBUMIN 4.1 GM/DL (3.2-4.5); ANION GAP 6 MMOL/L (5-14); ASPARTATE AMINO TRANSFERASE 242 U/L (5-34); BILIRUBIN,TOTAL 0.7 MG/DL (0.1-1.0); BLOOD UREA NITROGEN 8 MG/DL (7-18); BUN/CREATININE RATIO 11; CALCIUM 10.2 MG/DL (8.5-10.1); CARBON DIOXIDE 29 MMOL/L (21-32); CHLORIDE 104 MMOL/L (98-107); CREATINE KINASE 48 U/L (29-168); CREATININE SERUM 0.72 MG/DL (0.60-1.30); GFR ESTIMATED > 60; GLUCOSE 117 MG/DL (70-105); MAGNESIUM 1.8 MG/DL (1.8-2.4); SODIUM 139 MMOL/L (135-145); TOTAL PROTEIN 7.5 GM/DL (6.4-8.2)
--- NOTE | 2017-07-15 13:23 | Diagnostic Imaging Report ---
PROCEDURE: CT head without contrast. TECHNIQUE: Multiple contiguous axial images were obtained through the brain without the use of intravenous contrast. INDICATION: Dizziness and headache. COMPARISON: 03/07/2017. FINDINGS: No acute intracranial hemorrhage, mass effect or edema is demonstrated. The dumont-white junction is preserved. The ventricles appear normal. No focal abnormalities demonstrated. The paranasal sinuses and mastoids are clear as visualized. IMPRESSION: No evidence of an acute intracranial abnormality. Dictated by: Dictated on workstation # [id number]
[2017-07-15 13:26] LABS: TROPONIN I < 0.30 NG/ML (<0.30)
[2017-07-15 14:35] VITALS: BP 140/90
== END 2017-07-15 14:43 | disposition home or self-care (01) ==
LOC: EDUNIT# 10:51 → ER 10:53
DX: S09.90XA Unspecified injury of head, initial encounter (principal); R55 Syncope and collapse; J45.909 Unspecified asthma, uncomplicated; I10 Essential (primary) hypertension; G43.909 Migraine, unspecified, not intractable, without status migrainosus; K21.9 Gastro-esophageal reflux disease without esophagitis; E66.9 Obesity, unspecified; E11.9 Type 2 diabetes mellitus without complications; E21.3 Hyperparathyroidism, unspecified; F41.9 Anxiety disorder, unspecified; F31.9 Bipolar disorder, unspecified; Z90.49 Acquired absence of other specified parts of digestive tract; Z90.710 Acquired absence of both cervix and uterus; Z98.890 Other specified postprocedural states; Z87.19 Personal history of other diseases of the digestive system; Z79.4 Long term (current) use of insulin; X58.XXXA Exposure to other specified factors, initial encounter
CPT/HCPCS: 36415; 70450; 80053; 81000; 82550; 83735; 84443; 84484; 85025; 85610; 85730; 87088; 93005

== ENCOUNTER 2017-09-04 23:58 | Emergency (ER) | payer SELFPAY ==
[~2017-09-04] VITALS: Ht 160 cm; Wt 116.6 kg
[~2017-09-04 23:58] MED LIST changes: +MONT10TA24; +OMEP20CA12; +ONDA4TAB8
[2017-09-05] MEDS ORDERED: RT-ALBUTEROL/IPRATROPIUM 3 ML (DUONEB) VIAL INH ONE (03:45)
--- NOTE | 2017-09-05 03:48 | ED Cough/URI ---
General Chief Complaint: Cough/Cold/Flu Symptoms Stated Complaint: NAUSEA,COUCH,RUNNY NOSE,CHEST CONGESTION Source: patient, other Exam Limitations: no limitations History of Present Illness Date Seen by Provider: Sep 05, 2017 Time Seen by Provider: 03:37 Initial Comments Patient presents to the ER by private conveyance with a chief complaint that she 's had 5 weeks now of consistent coughing up or her story symptoms malaise bodyaches and occasional off-again on-again fevers with a MAXIMUM TEMPERATURE last week of 102F. She has not use Tylenol and she has been using ibuprofen once or twice a day 800 mg. She has no albuterol inhaler for her intermittent asthma but she has misplaced that should his she has not been using it for the entire 5 weeks. She has been to urgent care a couple times and initially had a normal workup with negative influenza swab. She's been using other over-the- counter medicines without any benefits. She feels wheezy and a little short of breath. She does not have a spacer for her albuterol. Her cough is mostly been dry but occasionally productive. Most recently she is feeling some loss of hearing, ear pressure and pain especially in her left ear so she went to the urgent care where they started her on amoxicillin for which she is been doing 4 days and felt marginal improvement in her ear pain. Allergies and Home Medications Allergies Coded Allergies: azithromycin (Verified Allergy, Unknown, 09/05/16) aspirin (Verified Adverse Reaction, Intermediate, VOMITING, 09/05/16) acetaminophen (Unverified Adverse Reaction, Unknown, 09/05/16) PT IS NOT SUPPOSE TO TAKE TYLENOL DUE TO LIVER DISEASE Home Medications Albuterol Sulfate 1 Puff Puff, 2 PUFF IH Q4H PRN for SHORTNESS OF BREATH, #1 Ref 0 1 PUFF = 90 MCG Prescribed by: KARLOS OCONNOR on 09/05/17 034 Alprazolam 1 Mg Tablet, 1 MG PO TID, (Reported) Benzonatate 100 Mg Capsule, 100 MG PO Q6H PRN for COUGH, #30 Ref 0 Prescribed by: KARLOS OCONNOR on 09/05/17348 Escitalopram Oxalate 5 Mg Tablet, 5 MG PO, (Reported) Lisinopril 10 Mg Tablet, 10, (Reported) Metformin HCl 1,000 Mg Tablet, 1,000 MG PO BID, (Reported) Metoprolol Tartrate 25 Mg Tablet, 25 DAILY, (Reported) Montelukast Sodium 10 Mg Tablet, (Reported) Omeprazole 20 Mg Capsule., (Reported) Ondansetron 4 Mg Tab.raparminda, (Reported) Pantoprazole Sodium 40 Mg Tablet.dr, 40 MG PO DAILY, #60 Ref 2 Prescribed by: MAG TAMEZ on 09/09/16 1159 Risperidone 1 Mg Tablet, 1 TAB PO UD, #30 (Reported) Constitutional: chills, fever, malaise EENTM: see HPI, hearing loss, ear pain, No ear discharge Respiratory: cough, phlegm (occasional), short of breath, wheezing Cardiovascular: No chest pain, No edema, No palpitations Gastrointestinal: No abdominal pain, No nausea Genitourinary: No discharge, No dysuria Skin: No pruritus, No rash Past Tqnoeak-Goonwi-Lzbgjh Hx Patient Social History Alcohol Use: Denies Use Recreational Drug Use: No 2nd Hand Smoke Exposure: No Recent Foreign Travel: No Contact w/Someone Who Travel: No Recent Infectious Disease Expo: No Recent Hopitalizations: No Immunizations Up To Date Tetanus Booster (TDap): Less than 5yrs Date of Pneumonia Vaccine: May 03, 2012 Date of Influenza Vaccine: May 03, 2012 Seasonal Allergies Seasonal Allergies: Yes Surgeries History of Surgeries: Yes (SKIN GRAFT FOR GREWAL, D&C, LAPAROSCOPY, ABSCESS I&D) Surgeries: Adenoidectomy, Appendectomy, Section, Hysterectomy, Oophorectomy, Tonsillectomy Respiratory History of Respiratory Disorde: Yes Respiratory Disorders: Asthma Currently Using CPAP: Yes Currently Using BIPAP: No Cardiovascular History of Cardiac Disorders: Yes Cardiac Disorders: Heart Murmur, High Cholesterol, Hypertension Neurological History of Neurological Disord: Yes Neurological Disorders: Headaches /Migraines Reproductive System : No (hysterectomy) Hx Reproductive Disorders: No Sexually Transmitted Disease: No HIV/AIDS: No Female Reproductive Disorders: Menstrual Problems, 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 Genitourinary History of Genitourinary Disor: Yes Genitourinary Disorders: Kidney Stones, UTI-Chronic Gastrointestinal History of Gastrointestinal Di: Yes Gastrointestinal Disorders: Gastroesophageal Reflux, Liver Disease/Jaundice, Ulcer Musculoskeletal History of Musculoskeletal Dis: Yes (RESTLESS LEG SYNDROME, SCIATICA) Musculoskeletal Disorders: Degenerate Disk Disease, Arthritis, Chronic Back Pain Endocrine History of Endocrine Disorders: Yes (HYPER PARATHYROID DISEASE, OBESITY) Endocrine Disorders: Parathyroid Disease, Diabetes, Non-Insulin dep HEENT History of HEENT Disorders: No Loss of Vision: Bilateral Hearing Impairment: Denies Cancer History of Cancer: No Psychosocial History of Psychiatric Problem: Yes Behavioral Health Disorders: Anxiety, Bipolar, Depression Integumentary History of Skin or Integumenta: No Blood Transfusions History of Blood Disorders: No Adverse Reaction to a Blood Tr: No Family Medical History Significant Family History: No Pertinent Family Hx Physical Exam Vital Signs Vital Sign - Last 12Hours 09/05/17 01:41 Temp 98.4 Pulse 83 Resp 18 B/P (MAP) 117/72 (87) Pulse Ox 97 O2 Delivery Room Air Capillary Refill : Less Than 3 Seconds General Appearance: WD/WN, mild distress Eyes: Bilateral Eye Normal Inspection, Bilateral Eye PERRL, Bilateral Eye EOMI HEENT: PERRL/EOMI, pharynx normal, TM abnormal (R) (clear mucoid effusion), TM abnormal (L) (mild injection with a clear mucoid effusion. TM is retracted) Neck: non-tender, full range of motion, supple, normal inspection, lymphadenopathy (R) (bilateral anterior shotty lymphadenopathy), lymphadenopathy (L) Respiratory: chest non-tender, no respiratory distress, no accessory muscle use , decreased breath sounds, wheezing, expiration Cardiovascular: normal peripheral pulses, regular rate, rhythm, no edema Neurologic/Psychiatric: alert, oriented x 3 Skin: normal color, warm/dry Progress/Results/Core Measures Suspected Sepsis Recent Fever Within 48 Hours: Yes Infection Criteria Present: Suspected New Infection New/Unexplained Altered Menta: No Sepsis Screen: No Definite Risk Sepsis Diagnosis: SIRS Temperature:98.4 Pulse: 83 Respiratory Rate: 18 Laboratory Tests 09/05/17 03:44: White Blood Count 8.3 Blood Pressure 117 /72 Mean: 87 Laboratory Tests 09/05/17 03:44: Creatinine 0.77, Platelet Count 195, Total Bilirubin 1.3H Results/Orders Lab Results Laboratory Tests Test 09/05/17 03:44 Range/Units White Blood Count 8.3 4.3-11.0 10^3/uL Red Blood Count 4.31 L 4.35-5.85 10^6/uL Hemoglobin 13.1 11.5-16.0 G/DL Hematocrit 39 35-52 % Mean Corpuscular Volume 90 80-99 FL Mean Corpuscular Hemoglobin 30 25-34 PG Mean Corpuscular Hemoglobin Concent 34 32-36 G/DL Red Cell Distribution Width 13.5 10.0-14.5 % Platelet Count 195 130-400 10^3/uL Mean Platelet Volume 9.7 7.4-10.4 FL Neutrophils (%) (Auto) 54 42-75 % Lymphocytes (%) (Auto) 31 12-44 % Monocytes (%) (Auto) 10 0-12 % Eosinophils (%) (Auto) 5 0-10 % Basophils (%) (Auto) 1 0-10 % Neutrophils # (Auto) 4.5 1.8-7.8 X 10^3 Lymphocytes # (Auto) 2.6 1.0-4.0 X 10^3 Monocytes # (Auto) 0.8 0.0-1.0 X 10^3 Eosinophils # (Auto) 0.4 H 0.0-0.3 10^3/uL Basophils # (Auto) 0.0 0.0-0.1 10^3/uL Sodium Level 137 135-145 MMOL/L Potassium Level 3.4 L 3.6-5.0 MMOL/L Chloride Level 104 98-107 MMOL/L Carbon Dioxide Level 21 21-32 MMOL/L Anion Gap 12 5-14 MMOL/L Blood Urea Nitrogen 8 7-18 MG/DL Creatinine 0.77 0.60-1.30 MG/DL Estimat Glomerular Filtration Rate > 60 BUN/Creatinine Ratio 10 Glucose Level 100 70-105 MG/DL Calcium Level 9.4 8.5-10.1 MG/DL Total Bilirubin 1.3 H 0.1-1.0 MG/DL Aspartate Amino Transf (AST/SGOT) 27 5-34 U/L Alanine Aminotransferase (ALT/SGPT) 48 0-55 U/L Alkaline Phosphatase 71 40-136 U/L C-Reactive Protein High Sensitivity 8.60 H 0.00-0.50 MG/DL Total Protein 7.7 6.4-8.2 GM/DL Albumin 3.9 3.2-4.5 GM/DL Micro Results Microbiology 09/05/17 Influenza Types A,B Antigen (GRADY) - Final, Complete My Orders Orders - KARLOS OCONNOR Chest Pa/Lat (2 View) (09/05/17 03:41) Cbc With Automated Diff (09/05/17 03:41) Comprehensive Metabolic Panel (09/05/17 03:41) Hs C Reactive Protein (09/05/17 03:41) Influenza A And B Antigens (09/05/17 03:41) Albuterol/Ipra Inhalation Soln (Duoneb I (09/05/17 03:45) Svn Sm Volume Nebulizer Rt-Rfs (09/05/17 03:41) Medications Given in ED Current Medications Medications Dose Ordered Sig/Ronna Route Start Time Stop Time Status Last Admin Dose Admin Albuterol/ Ipratropium 3 ml ONCE ONCE INH 09/05/17 03:45 09/05/17 03:46 DC 09/05/17 03:55 3 ML Vital Signs/I&O Vital Sign - Last 12Hours 09/05/17 09/05/17 01:41 03:57 Temp 98.4 Pulse 83 Resp 18 B/P (MAP) 117/72 (87) Pulse Ox 97 98 O2 Delivery Room Air Room Air Capillary Refill : Less Than 3 Seconds Blood Pressure Mean: 87 Progress Note : Time: 03:46 Progress Note Patient is probably having asthma exacerbation due to lengthy URIs caused by a virus. We're going to check for influenza as well as get a chest x-ray some basic labs to rule out a possible walking pneumonia. We may choose doxycycline for atypical coverage if we suspect that given her allergy to macrolides. We'll get her a refill on the Ventolin and a spacer. Diagnostic Imaging Diagonstic Imaging: Xray Plain Films/CT/US/NM/MRI: chest (2v) Comments No acute infiltrates noted on x-ray. Reviewed: Reviewed by Me Departure Impression Impression: Primary Impression: Upper respiratory infection Qualified Codes: J06.9 - Acute upper respiratory infection, unspecified Additional Impression: Asthma exacerbation Qualified Codes: J45.21 - Mild intermittent asthma with (acute) exacerbation Disposition: 01 HOME, SELF-CARE Condition: Stable Departure-Patient Inst. Decision time for Depature: 04:56 Referrals: [facility] (PCP/Family) Primary Care Physician Patient Instructions: Asthma, Adult (DC) Add. Discharge Instructions: white sugar syrup operator your Ventolin and start using it every 6 hours [id number] for the next week or 2 to feeling better. If you're needing some in between then every 2 -4 hours would be reasonable to take 2 more puffs. white sugar syrup operator a spacer to use with your Ventolin. You may also use lehl-lik-dudvuhc medicines as needed especially Motrin 800 mg every 8 hours as needed. Continue taking your amoxicillin as prescribed. white sugar syrup operator the prednisone and take one tablet twice a day for the next 5 days. All discharge instructions reviewed with patient and/or family. Voiced understanding. Scripts Prednisone (Prednisone) 20 Mg Tab 20 MG PO BID for 5 Days, #10 TAB 0 Refills Prov: KARLOS OCONNOR 09/05/17 Benzonatate (Tessalon Perle) 100 Mg Capsule 100 MG PO Q6H Y for COUGH, #30 CAP 0 Refills Prov: KARLOS OCONNOR 09/05/17 Albuterol Sulfate (VENTOLIN HFA) 1 Puff Puff 2 PUFF IH Q4H Y for SHORTNESS OF BREATH, #1 EACH 0 Refills 1 PUFF = 90 MCG Prov: KARLOS OCONNOR 09/05/17 Copy Copies To 1: JOE JONES DO AKRLOS OCONNOR Sep 05, 2017 03:48
[2017-09-05] MEDS ORDERED: RT-ALBUINH IH (03:49)
[2017-09-05] MEDS ORDERED: BENZ-13 PO (03:49)
[2017-09-05 04:08] LABS: BASOPHILS % (AUTO) 1 % (0-10); EOSINOPHILS # (AUTO) 0.4 10^3/uL (0.0-0.3); EOSINOPHILS % (AUTO) 5 % (0-10); HEMATOCRIT 39 % (35-52); HEMOGLOBIN 13.1 G/DL (11.5-16.0); LYMPHOCYTES # (AUTO) 2.6 X 10^3 (1.0-4.0); LYMPHOCYTES % (AUTO) 31 % (12-44); MEAN CORPUSCULAR HEMOGLOBIN 30 PG (25-34); MEAN CORPUSCULAR HGB CONC 34 G/DL (32-36); MEAN CORPUSCULAR VOLUME 90 FL (80-99); MEAN PLATELET VOLUME 9.7 FL (7.4-10.4); MONOCYTES # (AUTO) 0.8 X 10^3 (0.0-1.0); MONOCYTES % (AUTO) 10 % (0-12); NEUTROPHILS # (AUTO) 4.5 X 10^3 (1.8-7.8); NEUTROPHILS % (AUTO) 54 % (42-75); PLATELET COUNT 195 10^3/uL (130-400); RED BLOOD COUNT 4.31 10^6/uL (4.35-5.85); RED CELL DISTRIBUTION WIDTH 13.5 % (10.0-14.5); WHITE BLOOD COUNT 8.3 10^3/uL (4.3-11.0)
[2017-09-05 04:31] LABS: ALANINE AMINOTRANSFERASE 48 U/L (0-55); ALBUMIN 3.9 GM/DL (3.2-4.5); ALKALINE PHOSPHATASE 71 U/L (40-136); BILIRUBIN,TOTAL 1.3 MG/DL (0.1-1.0); BUN/CREATININE RATIO 10; CALCIUM 9.4 MG/DL (8.5-10.1); CARBON DIOXIDE 21 MMOL/L (21-32); CHLORIDE 104 MMOL/L (98-107); CREATININE SERUM 0.77 MG/DL (0.60-1.30); GFR ESTIMATED > 60; GLUCOSE 100 MG/DL (70-105); POTASSIUM 3.4 MMOL/L (3.6-5.0); SODIUM 137 MMOL/L (135-145); TOTAL PROTEIN 7.7 GM/DL (6.4-8.2)
[2017-09-05] MEDS ORDERED: PRD20T PO (04:59)
[2017-09-05] MEDS ORDERED: predniSONE 20 MG TAB PO ONE (05:00)
[2017-09-05 05:13] VITALS: BP 148/78
--- NOTE | 2017-09-05 07:08 | Diagnostic Imaging Report ---
EXAMINATION: PA and lateral chest at 0408 AM INDICATION: Cough and congestion The heart size is within normal limits and stable when compared to 10/24/2016. The lungs are clear. There is no sign of failure, pneumonia or a pleural effusion. The mediastinum is not widened. The osseous structures are intact. IMPRESSION: There is no evidence for active disease. Dictated by: Dictated on workstation # [id number]
== END 2017-09-05 05:13 | disposition home or self-care (01) ==
LOC: EDUNIT# 23:58 → ER 09-05 00:03
DX: J06.9 Acute upper respiratory infection, unspecified (principal); J45.901 Unspecified asthma with (acute) exacerbation; E78.00 Pure hypercholesterolemia, unspecified; I10 Essential (primary) hypertension; K21.9 Gastro-esophageal reflux disease without esophagitis; E66.9 Obesity, unspecified; E05.90 Thyrotoxicosis, unspecified without thyrotoxic crisis or storm; E11.9 Type 2 diabetes mellitus without complications; F41.9 Anxiety disorder, unspecified; F31.9 Bipolar disorder, unspecified; G43.909 Migraine, unspecified, not intractable, without status migrainosus; Z87.448 Personal history of other diseases of urinary system; Z87.19 Personal history of other diseases of the digestive system; Z68.42 Body mass index [BMI] 45.0-49.9, adult; Z87.440 Personal history of urinary (tract) infections; Z88.1 Allergy status to other antibiotic agents; Z88.6 Allergy status to analgesic agent; Z79.84 Long term (current) use of oral hypoglycemic drugs; Z90.89 Acquired absence of other organs; Z90.49 Acquired absence of other specified parts of digestive tract; Z90.710 Acquired absence of both cervix and uterus; Z87.59 Personal history of other complications of pregnancy, childbirth and the puerperium
CPT/HCPCS: 36415; 71046; 80053; 85025; 86141; 87804; 94640; 99281; 99283

== ENCOUNTER 2017-11-04 22:49 | Emergency (ER) | payer SELFPAY ==
[~2017-11-04] VITALS: Ht 160 cm; Wt 115.2 kg
[~2017-11-04 22:49] MED LIST changes: +BENZ-13 PO; +RT-ALBUINH IH
[2017-11-04] MEDS ORDERED: NS IV 1000 ML 1,000 ML IV ONE (23:48)
[2017-11-05] MEDS ORDERED: ONDANSETRON 4 MG/2 ML (SDV) Z0FRAN IVP ONE
[2017-11-05] MEDS ORDERED: FAMOTIDINE 20MG/2ML IV (PEPCID) IVP ONE
[2017-11-05 00:15] LABS: BILIRUBIN,URINE NEGATIVE (NEGATIVE); CLARITY,URINE CLEAR; COLOR,URINE YELLOW; GLUCOSE, URINE (UA) NEGATIVE (NEGATIVE); KETONES,URINE NEGATIVE (NEGATIVE); LEUKOCYTE ESTERASE ,URINE 2+ (NEGATIVE); NITRITE,URINE NEGATIVE (NEGATIVE); PH,URINE 5 (5-9); PROTEIN,URINE NEGATIVE (NEGATIVE); UROBILINOGEN,URINE NORMAL (NORMAL)
[2017-11-05 00:16] LABS: BASOPHILS % (AUTO) 1 % (0-10); EOSINOPHILS # (AUTO) 0.3 10^3/uL (0.0-0.3); EOSINOPHILS % (AUTO) 5 % (0-10); HEMATOCRIT 39 % (35-52); HEMOGLOBIN 13.4 G/DL (11.5-16.0); LYMPHOCYTES # (AUTO) 2.4 X 10^3 (1.0-4.0); LYMPHOCYTES % (AUTO) 36 % (12-44); MEAN CORPUSCULAR HEMOGLOBIN 31 PG (25-34); MEAN CORPUSCULAR HGB CONC 34 G/DL (32-36); MEAN CORPUSCULAR VOLUME 89 FL (80-99); MEAN PLATELET VOLUME 9.8 FL (7.4-10.4); MONOCYTES # (AUTO) 0.5 X 10^3 (0.0-1.0); MONOCYTES % (AUTO) 8 % (0-12); NEUTROPHILS # (AUTO) 3.3 X 10^3 (1.8-7.8); NEUTROPHILS % (AUTO) 51 % (42-75); PLATELET COUNT 182 10^3/uL (130-400); RED BLOOD COUNT 4.37 10^6/uL (4.35-5.85); RED CELL DISTRIBUTION WIDTH 13.9 % (10.0-14.5); WHITE BLOOD COUNT 6.5 10^3/uL (4.3-11.0)
[2017-11-05 00:22] LABS: BACTERIA,URINE TRACE /HPF; HYALINE CASTS, URINE 0-2 /LPF; WBC,URINE 0-2 /HPF
[2017-11-05 00:37] LABS: ALANINE AMINOTRANSFERASE 162 U/L (0-55); ALBUMIN 4.4 GM/DL (3.2-4.5); ALKALINE PHOSPHATASE 67 U/L (40-136); BILIRUBIN,TOTAL 1.1 MG/DL (0.1-1.0); BUN/CREATININE RATIO 13; CALCIUM 10.3 MG/DL (8.5-10.1); CARBON DIOXIDE 27 MMOL/L (21-32); CHLORIDE 101 MMOL/L (98-107); CREATININE SERUM 0.84 MG/DL (0.60-1.30); GFR ESTIMATED > 60; GLUCOSE 99 MG/DL (70-105); LIPASE 53 U/L (8-78); POTASSIUM 3.9 MMOL/L (3.6-5.0); SODIUM 139 MMOL/L (135-145); TOTAL PROTEIN 7.3 GM/DL (6.4-8.2)
[2017-11-05] MEDS ORDERED: FAMOTIDINE 20MG/2ML IV (PEPCID) IV STA (00:47)
[2017-11-05] MEDS ORDERED: ANTACID SUSP 30 ML UDC (MYLANTA) PO ONE (01:00)
[2017-11-05] MEDS ORDERED: LIDOCAINE 2% VISCOUS 15 ML UDC PO ONE (01:00)
[2017-11-05] MEDS ORDERED: SUCR1ORA5 PO (01:50)
[2017-11-05] MEDS ORDERED: ONDA4TAB8 SL (01:50)
--- NOTE | 2017-11-05 01:50 | ED General ---
General Chief Complaint: General Problems/Pain Stated Complaint: BODY ACHES, VOMITING, HEADACHE Nursing Triage Note: PT TO ED 6 W/ C/O N/V X1 WK, INTERMITTENT DIARRHEA AND FINK. REPORTS SHE ATTEMPTED TO GET IN ET SEE HER PCP BUT STATES THE STAFF "HUNG UP ON HER" WHEN SHE TRIED TO MAKE AN APPT Nursing Sepsis Screen: No Definite Risk History of Present Illness Date Seen by Provider: Nov 04, 2017 Time Seen by Provider: 23:38 Initial Comments This 37-year-old woman presents to the emergency room with complaints of central abdominal pain with eating for 3 or 4 days. She has had some vomiting and diarrhea as well. Diarrhea has been an ongoing problem for 3 weeks. The vomiting just started yesterday. She denies any fever. She has developed a headache tonight. She complains of pain in the lower back and suprapubic areas well. She took Imodium which was not helpful. Her last water intake was just before arrival. Her last food was 18:00. Allergies and Home Medications Allergies Coded Allergies: azithromycin (Verified Allergy, Unknown, 09/05/16) aspirin (Verified Adverse Reaction, Intermediate, VOMITING, 09/05/16) acetaminophen (Unverified Adverse Reaction, Unknown, 09/05/16) PT IS NOT SUPPOSE TO TAKE TYLENOL DUE TO LIVER DISEASE Home Medications Albuterol Sulfate 1 Puff Puff, 2 PUFF IH Q4H PRN for SHORTNESS OF BREATH 1 PUFF = 90 MCG Prescribed by: KARLOS OCONNOR on 09/05/17 034 Alprazolam 1 Mg Tablet, 1 MG PO TID, (Reported) Benzonatate 100 Mg Capsule, 100 MG PO Q6H PRN for COUGH Prescribed by: KARLOS OCONNOR on 09/05/17 034 Metformin HCl 1,000 Mg Tablet, 1,000 MG PO BID, (Reported) Metoprolol Tartrate 25 Mg Tablet, 25 DAILY, (Reported) Ondansetron 4 Mg Tab.rapdis, 4 MG SL Q4H PRN for NAUSEA/VOMITING-1ST LINE Prescribed by: RANDAL WALSH on 11/05/17 0150 Pantoprazole Sodium 40 Mg Tablet.dr, 40 MG PO DAILY Prescribed by: MAG TAMEZ on 09/09/16 1159 Prednisone 20 Mg Tab, 20 MG PO BID Prescribed by: KARLOS OCONNOR on 09/05/17 0459 Risperidone 1 Mg Tablet, 1 TAB PO UD, (Reported) Sucralfate 1 Gm/10 Ml Oral.susp, 1 GM PO QID 30 min before meals and bed time Prescribed by: RANDAL WALSH on 11/05/17 0150 Patient Home Medication List Home Medication List Reviewed: Yes Constitutional: no symptoms reported EENTM: no symptoms reported Respiratory: no symptoms reported Cardiovascular: no symptoms reported Gastrointestinal: see HPI Genitourinary: see HPI : No Musculoskeletal: no symptoms reported Skin: no symptoms reported Psychiatric/Neurological: See HPI Hematologic/Lymphatic: No Symptoms Reported Immunological/Allergic: no symptoms reported Past Fycqrsp-Cbbcxz-Alqkoq Hx Patient Social History Alcohol Use: Denies Use Recreational Drug Use: No Smoking Status: Never a Smoker 2nd Hand Smoke Exposure: No Recent Foreign Travel: No Contact w/Someone Who Travel: No Recent Infectious Disease Expo: No Recent Hopitalizations: No Physical Abuse: No Sexual Abuse: No Mistreated: No Fear: No Immunizations Up To Date Tetanus Booster (TDap): Less than 5yrs Date of Pneumonia Vaccine: May 03, 2012 Date of Influenza Vaccine: May 03, 2012 Seasonal Allergies Seasonal Allergies: Yes Surgeries History of Surgeries: Yes (SKIN GRAFT FOR GREWAL, D&C, LAPAROSCOPY, ABSCESS I&D) Surgeries: Adenoidectomy, Appendectomy, Section, Hysterectomy, Oophorectomy, Tonsillectomy Respiratory History of Respiratory Disorde: Yes Respiratory Disorders: Asthma Currently Using CPAP: Yes Currently Using BIPAP: No Cardiovascular History of Cardiac Disorders: Yes Cardiac Disorders: Heart Murmur, High Cholesterol, Hypertension Neurological History of Neurological Disord: Yes Neurological Disorders: Headaches /Migraines Reproductive System Hx Reproductive Disorders: No Sexually Transmitted Disease: No HIV/AIDS: No Female Reproductive Disorders: Menstrual Problems, 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 Genitourinary History of Genitourinary Disor: Yes Genitourinary Disorders: Kidney Stones, UTI-Chronic Gastrointestinal History of Gastrointestinal Di: Yes Gastrointestinal Disorders: Gastroesophageal Reflux, Liver Disease/Jaundice, Ulcer Musculoskeletal History of Musculoskeletal Dis: Yes (RESTLESS LEG SYNDROME, SCIATICA) Musculoskeletal Disorders: Degenerate Disk Disease, Arthritis, Chronic Back Pain Endocrine History of Endocrine Disorders: Yes (HYPER PARATHYROID DISEASE, OBESITY) Endocrine Disorders: Parathyroid Disease, Diabetes, Non-Insulin dep HEENT History of HEENT Disorders: No Loss of Vision: Bilateral Hearing Impairment: Denies Cancer History of Cancer: No Psychosocial History of Psychiatric Problem: Yes Behavioral Health Disorders: Anxiety, Bipolar, Depression Suicide Risk Score: 0 Integumentary History of Skin or Integumenta: No Blood Transfusions History of Blood Disorders: No Adverse Reaction to a Blood Tr: No Family Medical History Significant Family History: No Pertinent Family Hx Physical Exam Vital Signs Vital Signs - First Documented 11/04/17 22:55 Temp 95.5 Pulse 77 Resp 18 B/P (MAP) 125/73 (90) Pulse Ox 99 O2 Delivery Room Air Capillary Refill : Less Than 3 Seconds General Appearance: No Apparent Distress, Obese HEENT: PERRL/EOMI, Normal ENT Inspection Neck: Normal Inspection Respiratory: Lungs Clear, Normal Breath Sounds, No Accessory Muscle Use, No Respiratory Distress Cardiovascular: Regular Rate, Rhythm, No Edema, No Murmur Gastrointestinal: Normal Bowel Sounds, Soft, Tenderness (Epigastrium and suprapubic regions) Extremity: Normal Inspection, No Pedal Edema Neurologic/Psychiatric: Alert, Oriented x3, No Motor/Sensory Deficits, Normal 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, 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 as 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 Skin: Normal Color, Warm/Dry Progress/Results/Core Measures Suspected Sepsis Recent Fever Within 48 Hours: No Infection Criteria Present: None New/Unexplained Altered Menta: No Sepsis Screen: No Definite Risk Sepsis Diagnosis: SIRS Temperature:95.5 Pulse: 77 Respiratory Rate: 18 Laboratory Tests 11/05/17 00:03: White Blood Count 6.5 Blood Pressure 125 /73 Mean: 90 Laboratory Tests 11/05/17 00:03: Creatinine 0.84, Platelet Count 182, Total Bilirubin 1.1H Results/Orders Lab Results Laboratory Tests Test 11/04/17 23:59 11/05/17 00:03 Range/Units Urine Color YELLOW Urine Clarity CLEAR Urine pH 5 5-9 Urine Specific [place] 1.020 1.016-1.022 Urine Protein NEGATIVE NEGATIVE Urine Glucose (UA) NEGATIVE NEGATIVE Urine Ketones NEGATIVE NEGATIVE Urine Nitrite NEGATIVE NEGATIVE Urine Bilirubin NEGATIVE NEGATIVE Urine Urobilinogen NORMAL NORMAL MG/DL Urine Leukocyte Esterase 2+ H NEGATIVE Urine RBC (Auto) NEGATIVE NEGATIVE Urine RBC NONE /HPF Urine WBC 0-2 /HPF Urine Squamous Epithelial Cells 2-5 /HPF Urine Crystals NONE /LPF Urine Bacteria TRACE /HPF Urine Casts PRESENT /LPF Urine Hyaline Casts 0-2 H /LPF Urine Mucus SMALL H /LPF Urine Culture Indicated NO White Blood Count 6.5 4.3-11.0 10^3/uL Red Blood Count 4.37 4.35-5.85 10^6/uL Hemoglobin 13.4 11.5-16.0 G/DL Hematocrit 39 35-52 % Mean Corpuscular Volume 89 80-99 FL Mean Corpuscular Hemoglobin 31 25-34 PG Mean Corpuscular Hemoglobin Concent 34 32-36 G/DL Red Cell Distribution Width 13.9 10.0-14.5 % Platelet Count 182 130-400 10^3/uL Mean Platelet Volume 9.8 7.4-10.4 FL Neutrophils (%) (Auto) 51 42-75 % Lymphocytes (%) (Auto) 36 12-44 % Monocytes (%) (Auto) 8 0-12 % Eosinophils (%) (Auto) 5 0-10 % Basophils (%) (Auto) 1 0-10 % Neutrophils # (Auto) 3.3 1.8-7.8 X 10^3 Lymphocytes # (Auto) 2.4 1.0-4.0 X 10^3 Monocytes # (Auto) 0.5 0.0-1.0 X 10^3 Eosinophils # (Auto) 0.3 0.0-0.3 10^3/uL Basophils # (Auto) 0.0 0.0-0.1 10^3/uL Sodium Level 139 135-145 MMOL/L Potassium Level 3.9 3.6-5.0 MMOL/L Chloride Level 101 98-107 MMOL/L Carbon Dioxide Level 27 21-32 MMOL/L Anion Gap 11 5-14 MMOL/L Blood Urea Nitrogen 11 7-18 MG/DL Creatinine 0.84 0.60-1.30 MG/DL Estimat Glomerular Filtration Rate > 60 BUN/Creatinine Ratio 13 Glucose Level 99 70-105 MG/DL Calcium Level 10.3 H 8.5-10.1 MG/DL Total Bilirubin 1.1 H 0.1-1.0 MG/DL Aspartate Amino Transf (AST/SGOT) 123 H 5-34 U/L Alanine Aminotransferase (ALT/SGPT) 162 H 0-55 U/L Alkaline Phosphatase 67 40-136 U/L Total Protein 7.3 6.4-8.2 GM/DL Albumin 4.4 3.2-4.5 GM/DL Lipase 53 8-78 U/L My Orders Orders - RANDAL EDMOND MD Cbc With Automated Diff (11/04/17 23:48) Comprehensive Metabolic Panel (11/04/17 23:48) Lipase (11/04/17 23:48) Ua Culture If Indicated (11/04/17 23:48) Saline Lock/Iv-Start (11/04/17 23:48) Ns Iv 1000 Ml (Sodium Chloride 0.9%) (11/04/17 23:48) Ondansetron Injection (Zofran Injectio (11/05/17 00:00) Famotidine Injection (Pepcid Injection) (11/05/17 00:00) Lidocaine 2% Viscous 15 Ml (Xylocaine Vi (11/05/17 01:00) Antacid Suspension (Mylanta Suspension (11/05/17 01:00) Famotidine Injection (Pepcid Injection) (11/05/17 00:47) Medications Given in ED Current Medications Medications Dose Ordered Sig/Ronna Route Start Time Stop Time Status Last Admin Dose Admin Al Hydrox/Mg Hydrox/Simethicone 30 ml ONCE ONCE PO 11/05/17 01:00 11/05/17 01:01 DC 11/05/17 00:55 30 ML Famotidine 20 mg ONCE ONCE IVP 11/05/17 00:00 11/05/17 00:01 DC 11/05/17 00:05 20 MG Lidocaine HCl 15 ml ONCE ONCE PO 11/05/17 01:00 11/05/17 01:01 DC 11/05/17 00:55 15 ML Ondansetron HCl 4 mg ONCE ONCE IVP 11/05/17 00:00 11/05/17 00:01 DC 11/05/17 00:05 4 MG Sodium Chloride 1,000 ml @ 0 mls/hr Q0M ONCE IV 11/04/17 23:48 11/04/17 23:50 DC 11/05/17 00:05 1,000 MLS/HR Vital Signs/I&O Vital Sign - Last 12Hours 11/04/17 11/05/17 22:55 02:02 Temp 95.5 Pulse 77 79 Resp 18 18 B/P (MAP) 125/73 (90) 131/88 Pulse Ox 99 99 O2 Delivery Room Air Room Air Capillary Refill : Less Than 3 Seconds Blood Pressure Mean: 90 Progress Note : Progress Note Labs were unremarkable with the exception of liver enzymes which had actually improved from prior. GI cocktail and Pepcid did help with symptoms. Patient was advised to have stool studies performed because of diarrhea 3 weeks. I also advised that she follow-up with her primary care provider to discuss referral for endoscopy and possibly a gallbladder ultrasound. Patient already takes Protonix daily. Carafate was added. Departure Impression Impression: Primary Impression: Nausea vomiting and diarrhea Additional Impression: Abdominal pain Qualified Codes: R10.13 - Epigastric pain Disposition: HOME, SELF-CARE Condition: Improved Departure-Patient Inst. Decision time for Depature: 01:30 Referrals: [facility] [place] (PCP/Family) Primary Care Physician Patient Instructions: Acute Abdomen (Belly Pain) Add. Discharge Instructions: Drink plenty of clear liquids. Follow-up with your primary care provider soon as possible. Discuss further workup which might include endoscopy, gallbladder ultrasound, etc. Also review your medications with your primary care provider as some of the medications you take such as metformin can cause gastrointestinal symptoms. Return to care if symptoms worsen. Use your medications as prescribed. Collect a stool specimen and bring it to the hospital along with your order. Avoid spicy foods, fatty or greasy foods, and any other foods you know irritate your stomach. All discharge instructions reviewed with patient and/or family. Voiced understanding. Scripts Ondansetron (Zofran Odt) 4 Mg Tab.rapdis 4 MG SL Q4H Y for NAUSEA/VOMITING-1ST LINE, #10 TAB Prov: RANDAL EDMOND MD 11/05/17 Sucralfate (Carafate) 1 Gm/10 Ml Oral.susp 1 GM PO QID, #1200 ML 30 min before meals and bed time Prov: RANDAL EDMOND MD 11/05/17 Copy Copies To 1: JOE JONES JOSHUA T MD Nov 05, 2017 01:50
[2017-11-05 02:02] VITALS: BP 131/88
== END 2017-11-05 02:02 | disposition home or self-care (01) ==
LOC: EDUNIT# 22:49 → ER 22:50
DX: R11.2 Nausea with vomiting, unspecified (principal); R19.7 Diarrhea, unspecified; R10.13 Epigastric pain; J45.909 Unspecified asthma, uncomplicated; E78.00 Pure hypercholesterolemia, unspecified; I10 Essential (primary) hypertension; E66.01 Morbid (severe) obesity due to excess calories; E11.9 Type 2 diabetes mellitus without complications; G43.909 Migraine, unspecified, not intractable, without status migrainosus; E05.90 Thyrotoxicosis, unspecified without thyrotoxic crisis or storm; K21.9 Gastro-esophageal reflux disease without esophagitis; F41.9 Anxiety disorder, unspecified; F31.9 Bipolar disorder, unspecified; Z87.19 Personal history of other diseases of the digestive system; Z87.440 Personal history of urinary (tract) infections; Z68.42 Body mass index [BMI] 45.0-49.9, adult; Z87.442 Personal history of urinary calculi; Z88.1 Allergy status to other antibiotic agents; Z88.6 Allergy status to analgesic agent; Z79.84 Long term (current) use of oral hypoglycemic drugs; Z90.49 Acquired absence of other specified parts of digestive tract; Z90.89 Acquired absence of other organs; Z90.710 Acquired absence of both cervix and uterus
CPT/HCPCS: 36415; 80053; 81000; 83690; 85025; 96361; 96374; 96375

== ENCOUNTER 2018-02-15 23:48 | Emergency (ER) | payer SELFPAY ==
[~2018-02-15] VITALS: Ht 160 cm; Wt 115.2 kg
[~2018-02-15 23:48] MED LIST changes: -METF1000 PO; +METF10002 PO; -METF500T4 PO; +METF500T5 PO; +SUCR1ORA5 PO
--- NOTE | 2018-02-16 00:13 | ED EENT ---
History of Present Illness General Chief Complaint: Dental Problems/Pain Stated Complaint: VOMITING,DENTAL PAIN,PAIN IN EAR & EYE Nursing Triage Note: DENTAL/EAR PAIN Source: patient Exam Limitations: no limitations History of Present Illness Date Seen by Provider: Feb 15, 2018 Time Seen by Provider: 23:56 Initial Comments This 37-year-old woman presents to the emergency room with recurrent pain and swelling from a dental abscess of the right upper jaw. She has completed 2 rounds of antibiotics with a last round finishing about 4 days ago. Today she had a sudden recurrence and exacerbation of the pain. She has a dental extractions scheduled for March 03. She has been taking Tylenol and ibuprofen but states the combination of these medications upsets her stomach. She denies fever. Allergies and Home Medications Allergies Coded Allergies: azithromycin (Verified Allergy, Unknown, 09/05/16) aspirin (Verified Adverse Reaction, Intermediate, VOMITING, 09/05/16) acetaminophen (Unverified Adverse Reaction, Unknown, 09/05/16) PT IS NOT SUPPOSE TO TAKE TYLENOL DUE TO LIVER DISEASE Home Medications Albuterol Sulfate 1 Puff Puff, 2 PUFF IH Q4H PRN for SHORTNESS OF BREATH 1 PUFF = 90 MCG Prescribed by: KARLOS OCONNOR on 09/05/17 0349 Alprazolam 1 Mg Tablet, 1 MG PO TID, (Reported) Benzonatate 100 Mg Capsule, 100 MG PO Q6H PRN for COUGH Prescribed by: KARLOS OCONNOR on 09/05/17 034 Clindamycin HCl 300 Mg Capsule, 300 MG PO QID Prescribed by: RANDAL WALSH on 02/16/18 0019 Metformin HCl 1,000 Mg Tablet, 1,000 MG PO BID, (Reported) Metoprolol Tartrate 25 Mg Tablet, 25 DAILY, (Reported) Ondansetron 4 Mg Tab.rapdis, 4 MG SL Q4H PRN for NAUSEA/VOMITING-1ST LINE Prescribed by: RANDAL WALSH on 11/05/17 0150 Pantoprazole Sodium 40 Mg Tablet.dr, 40 MG PO DAILY Prescribed by: MAG TAMEZ on 09/09/16 1159 Prednisone 20 Mg Tab, 20 MG PO BID Prescribed by: KARLOS OCONNOR on 09/05/17 0459 Risperidone 1 Mg Tablet, 1 TAB PO UD, (Reported) Sucralfate 1 Gm/10 Ml Oral.susp, 1 GM PO QID 30 min before meals and bed time Prescribed by: RANDAL WALSH on 11/05/17 0150 Tramadol HCl 50 Mg Tablet, 50 MG PO Q6H PRN for PAIN-MODERATE TO SEVERE Prescribed by: RANDAL WALSH on 02/16/18 0019 Patient Home Medication List Home Medication List Reviewed: Yes Review of Systems Constitutional: no symptoms reported Eyes: No Symptoms Reported Ears: No Symptoms Reported Nose: no symptoms reported Mouth: see HPI Throat: no symptoms reported Respiratory: no symptoms reported Cardiovascular: no symptoms reported Gastrointestinal: no symptoms reported Musculoskeletal: no symptoms reported Skin: no symptoms reported Neurological: No Symptoms Reported Hematologic/Lymphatic: No Symptoms Reported Past Xpoyezq-Yhnfnw-Kxkezo Hx Patient Social History Alcohol Use: Denies Use Recreational Drug Use: No Smoking Status: Never a Smoker 2nd Hand Smoke Exposure: No Recent Foreign Travel: No Contact w/Someone Who Travel: No Recent Infectious Disease Expo: No Recent Hopitalizations: No Immunizations Up To Date Tetanus Booster (TDap): Less than 5yrs Date of Pneumonia Vaccine: May 03, 2012 Date of Influenza Vaccine: May 03, 2012 Seasonal Allergies Seasonal Allergies: Yes Past Medical History Surgeries: Yes (SKIN GRAFT FOR GREWAL, D&C, LAPAROSCOPY, ABSCESS I&D) Adenoidectomy, Appendectomy, Section, Hysterectomy, Oophorectomy, Tonsillectomy Respiratory: Yes Asthma Currently Using CPAP: Yes Currently Using BIPAP: No Cardiac: Yes Heart Murmur, High Cholesterol, Hypertension Neurological: Yes Headaches /Migraines : No Reproductive Disorders: No Female Reproductive Disorders: Menstrual Problems, 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 Sexually Transmitted Disease: No HIV/AIDS: No Genitourinary: Yes Kidney Stones, UTI-Chronic Gastrointestinal: Yes Gastroesophageal Reflux, Liver Disease/Jaundice, Ulcer Musculoskeletal: Yes (RESTLESS LEG SYNDROME, SCIATICA) Degenerate Disk Disease, Arthritis, Chronic Back Pain Endocrine: Yes (HYPER PARATHYROID DISEASE, OBESITY) Parathyroid Disease, Diabetes, Non-Insulin dep HEENT: No Loss of Vision: Bilateral Hearing Impairment: Denies Cancer: No Psychosocial: Yes Anxiety, Bipolar, Depression Integumentary: No Blood Disorders: No Adverse Reaction/Blood Tranf: No Family Medical History No Pertinent Family Hx Physical Exam Vital Signs Vital Signs - First Documented 02/15/18 23:57 Temp 98.4 Pulse 63 Resp 18 B/P (MAP) 167/93 (117) Pulse Ox 100 O2 Delivery Room Air Height, Weight, BMI Height: 5'3.00" Weight: 254lbs. 0.0oz. [id number]; 43.8 BMI Method:Stated General Appearance: WD/WN, mild distress Ears: bilateral ear auricle normal, bilateral ear canal normal, bilateral ear TM normal Nose: normal inspection Mouth/Throat: pharynx normal, other (erythema, tenderness, and mild swelling to the gingiva particularly around to the right upper canine. 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 Anesthetic gauze pads were dispensed. Her first dose of clindamycin was given in the ER with a prescription written to follow. See discharge instructions. Departure Impression Primary Impression: Dental abscess Additional Impression: Pain, dental Disposition: 01 HOME, SELF-CARE Condition: Improved Departure-Patient Inst. Decision time for Depature: 00:03 Referrals: [facility] (PCP/Family) Primary Care Physician Patient Instructions: Tooth Abscess (DC) Add. Discharge Instructions: You may take ibuprofen up to 600 mg every 6 hours as needed for pain and/or Tylenol (acetaminophen) this is up to 1000 mg every 6 hours as needed. Take with food or milk to avoid upset stomach. You may alternate these medications every 3 hours to reduce irritation on your stomach as well. Use Ultram as prescribed for pain not controlled by [id number] medications. You may use anesthetic gauze pads to blanket the affected areas. Eat and drink very carefully after using gauze pads as they may numb your lips, mouth, tongue, and throat. Do NOT fall sleep with gauze pads in your mouth. All discharge instructions reviewed with patient and/or family. Voiced understanding. Scripts Clindamycin HCl (Clindamycin HCl) 300 Mg Capsule 300 MG PO QID, #60 CAP Prov: RANDAL EDMOND MD 02/16/18 Tramadol HCl (Ultram) 50 Mg Tablet 50 MG PO Q6H PRN for PAIN-MODERATE TO SEVERE, #20 TAB Prov: RANDAL EDMOND MD 02/16/18 RANDAL EDMOND MD Feb 16, 2018 00:13
[2018-02-16] MEDS ORDERED: LIDOCAINE 2% VISCOUS 15 ML UDC PO ONE (00:15)
[2018-02-16] MEDS ORDERED: CLIN300C11 PO (00:19)
[2018-02-16] MEDS ORDERED: TRAM-42 PO (00:19)
[2018-02-16 00:29] VITALS: BP 167/93
== END 2018-02-16 00:27 | disposition home or self-care (01) ==
LOC: EDUNIT# 23:48 → ER 23:51
DX: K04.7 Periapical abscess without sinus (principal); J45.909 Unspecified asthma, uncomplicated; I10 Essential (primary) hypertension; E78.00 Pure hypercholesterolemia, unspecified; G43.909 Migraine, unspecified, not intractable, without status migrainosus; K21.9 Gastro-esophageal reflux disease without esophagitis; E11.9 Type 2 diabetes mellitus without complications; F31.9 Bipolar disorder, unspecified; F41.9 Anxiety disorder, unspecified; Z87.442 Personal history of urinary calculi; Z87.19 Personal history of other diseases of the digestive system; Z88.1 Allergy status to other antibiotic agents; Z88.6 Allergy status to analgesic agent; Z88.5 Allergy status to narcotic agent; Z79.84 Long term (current) use of oral hypoglycemic drugs; Z90.49 Acquired absence of other specified parts of digestive tract; Z87.59 Personal history of other complications of pregnancy, childbirth and the puerperium; Z90.710 Acquired absence of both cervix and uterus; Z90.89 Acquired absence of other organs
CPT/HCPCS: 99283

== ENCOUNTER 2018-05-19 20:35 | Emergency (ER) | payer SELFPAY ==
[~2018-05-19] VITALS: Ht 160 cm; Wt 111.1 kg
[~2018-05-19 20:35] MED LIST changes: -BENZ-13 PO; +BENZ100C18 PO; +CLIN300C11 PO; +METF-397 PO; +METF-399 PO; -METF10002 PO; -METF500T5 PO
--- NOTE | 2018-05-19 21:03 | ED Cough/URI ---
General Chief Complaint: Cough/Cold/Flu Symptoms Stated Complaint: FEVER Nursing Triage Note: pt presents to ed with complaints of cough/ [place]/ sore throat/ malaise x 2 days. Source: patient History of Present Illness Date Seen by Provider: May 19, 2018 Time Seen by Provider: 20:44 Initial Comments PT ARRIVES VIA POV FROM WORK--LEFT WORK EARLY AND CAME HERE STATES "JUST DON'T FEEL GOOD" PT STATES "FEEL RUN DOWN" "THROAT'S SORE" "CAN'T GET COOLED OFF" --HAS NOT CHECKED TEMP AT HOME "COUGH FOR A COUPLE OF DAYS" "WOKE UP TODAY AND JUST DIDN'T FEEL GOOD" PT TOOK 800 MG IBUPROFEN AT 1400 TODAY, OTHERWISE HAS NOT TAKEN ANYTHING ELSE FOR SYMPTOMS PT HAS NIDDM--BLOOD GLUCOSE WAS 227 AT 1730 TODAY ONLY TOOK HER BLOOD PRESSURE MEDICATION AND METFORMIN TODAY NO KNOWN SICK CONTACTS PCP: JULIANN-SABINA, LUKE RUTH Allergies and Home Medications Allergies Coded Allergies: azithromycin (Verified Allergy, Unknown, 09/05/16) aspirin (Verified Adverse Reaction, Intermediate, VOMITING, 09/05/16) acetaminophen (Unverified Adverse Reaction, Unknown, 09/05/16) PT IS NOT SUPPOSE TO TAKE TYLENOL DUE TO LIVER DISEASE Home Medications Albuterol Sulfate 1 Puff Puff, 2 PUFF IH Q4H PRN for SHORTNESS OF BREATH 1 PUFF = 90 MCG Prescribed by: KARLOS OCONNOR on 09/05/17 034 Alprazolam 1 Mg Tablet, 1 MG PO TID, (Reported) Benzonatate 100 Mg Capsule, 100 MG PO Q6H PRN for COUGH Prescribed by: KARLOS OCONNOR on 09/05/17 034 Clindamycin HCl 300 Mg Capsule, 300 MG PO QID Prescribed by: RANDAL WALSH on 02/16/18 0019 Metformin HCl 1,000 Mg Tablet, 1,000 MG PO BID, (Reported) Metoprolol Tartrate 25 Mg Tablet, 25 DAILY, (Reported) Ondansetron 4 Mg Tab.rapdis, 4 MG SL Q4H PRN for NAUSEA/VOMITING-1ST LINE Prescribed by: RANDAL WALSH on 11/05/17 0150 Pantoprazole Sodium 40 Mg Tablet.dr, 40 MG PO DAILY Prescribed by: MAG [facility] on 09/09/16 1159 Prednisone 20 Mg Tab, 20 MG PO BID Prescribed by: KARLOS OCONNOR on 09/05/17 0459 Risperidone 1 Mg Tablet, 1 TAB PO UD, (Reported) Sucralfate 1 Gm/10 Ml Oral.susp, 1 GM PO QID 30 min before meals and bed time Prescribed by: RANDAL WALSH on 11/05/17 0150 Tramadol HCl 50 Mg Tablet, 50 MG PO Q6H PRN for PAIN-MODERATE TO SEVERE Prescribed by: RANDAL WALSH on 02/16/18 0019 Patient Home Medication List Home Medication List Reviewed: Yes Review of Systems Review of Systems Constitutional: see HPI, fever, malaise, weakness EENTM: see HPI, throat pain Respiratory: see HPI, cough; No phlegm, No short of breath, No wheezing Cardiovascular: no symptoms reported; No chest pain, No palpitations, No syncope Gastrointestinal: No abdominal pain, No diarrhea, No loss of appetite; nausea; No vomiting Genitourinary: no symptoms reported; No dysuria Musculoskeletal: back pain (LOW BACK ACHE); No muscle pain Skin: no symptoms reported Psychiatric/Neurological: No Symptoms Reported; Denies Headache Hematologic/Lymphatic: No Symptoms Reported Immunological/Allergic: no symptoms reported Past Romxrxn-Vtusut-Bmxyvg Hx Patient Social History Alcohol Use: Denies Use Recreational Drug Use: No Smoking Status: Never a Smoker 2nd Hand Smoke Exposure: No Recent Foreign Travel: No Contact w/Someone Who Travel: No Recent Infectious Disease Expo: No Recent Hopitalizations: No Physical Abuse: No Sexual Abuse: No Mistreated: No Fear: No Immunizations Up To Date Tetanus Booster (TDap): Less than 5yrs Date of Pneumonia Vaccine: May 03, 2012 Date of Influenza Vaccine: May 03, 2012 Seasonal Allergies Seasonal Allergies: Yes Past Medical History Surgeries: Yes (SKIN GRAFTS FOR GREWAL, D&C, LAPAROSCOPY, ABSCESS I&D; HYST/BSO) Adenoidectomy, Appendectomy, Section, Hysterectomy, Oophorectomy, Tonsillectomy Respiratory: Yes Asthma Currently Using CPAP: Yes Currently Using BIPAP: No Cardiac: Yes Heart Murmur, High Cholesterol, Hypertension Neurological: Yes Headaches /Migraines Reproductive Disorders: No Female Reproductive Disorders: Menstrual Problems, 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 Transmitted Disease: No HIV/AIDS: No Genitourinary: Yes Kidney Stones, UTI-Chronic Gastrointestinal: Yes Gastroesophageal Reflux, Liver Disease/Jaundice, Ulcer Musculoskeletal: Yes (RESTLESS LEG SYNDROME, SCIATICA) Degenerate Disk Disease, Arthritis, Chronic Back Pain Endocrine: Yes (HYPER PARATHYROID DISEASE, OBESITY) Parathyroid Disease, Diabetes, Non-Insulin dep HEENT: No Loss of Vision: Bilateral Hearing Impairment: Denies Cancer: No Psychosocial: Yes Anxiety, Bipolar, Depression Integumentary: Yes (SKIN GRAFTS FOR GREWAL) Blood Disorders: No Adverse Reaction/Blood Tranf: No Family Medical History No Pertinent Family Hx Physical Exam Vital Signs - First Documented 05/19/18 20:44 Temp 98.1 Pulse 72 Resp 20 B/P (MAP) 132/78 (96) Pulse Ox 100 O2 Delivery Room Air Capillary Refill : Less Than 3 Seconds Height: 5'3.00" Weight: 245lbs. 0.0oz. 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, no motor/sensory deficits, alert, normal mood/affect, oriented x 3 Skin: normal color, warm/dry; No rash; tattoos/piercings (MULTIPLE ) Progress/Results/Core Measures Suspected Sepsis Recent Fever Within 48 Hours: No Infection Criteria Present: Suspected New Infection New/Unexplained Altered Menta: No Sepsis Screen: No Definite Risk SIRS Temperature:98.1 Pulse: 72 Respiratory Rate: 20 Laboratory Tests 05/19/18 21:00: White Blood Count 7.1 Blood Pressure 132 /78 Mean: 96 Laboratory Tests 05/19/18 21:00: Creatinine 0.81, Platelet Count 181, Total Bilirubin 0.9 Results/Orders Lab Results Laboratory Tests Test 05/19/18 20:54 05/19/18 20:56 05/19/18 20:59 05/19/18 21:00 Range/Units Group A Streptococcus Screen NEGATIVE NEGATIVE Urine Color YELLOW Urine Clarity CLEAR Urine pH 5 5-9 Urine Specific [place] 1.005 L 1.016-1.022 Urine Protein NEGATIVE NEGATIVE Urine Glucose (UA) NEGATIVE NEGATIVE Urine Ketones NEGATIVE NEGATIVE Urine Nitrite NEGATIVE NEGATIVE Urine Bilirubin NEGATIVE NEGATIVE Urine Urobilinogen NORMAL NORMAL MG/DL Urine Leukocyte Esterase NEGATIVE NEGATIVE Urine RBC (Auto) NEGATIVE NEGATIVE Urine RBC NONE /HPF Urine WBC RARE /HPF Urine Squamous Epithelial Cells 2-5 /HPF Urine Crystals NONE /LPF Urine Bacteria TRACE /HPF Urine Casts NONE /LPF Urine Mucus NEGATIVE /LPF Urine Culture Indicated NO Glucometer 81 70-110 MG/DL White Blood Count 7.1 4.3-11.0 10^3/uL Red Blood Count 4.54 4.35-5.85 10^6/uL Hemoglobin 14.0 11.5-16.0 G/DL Hematocrit 39 35-52 % Mean Corpuscular Volume 86 80-99 FL Mean Corpuscular Hemoglobin 31 25-34 PG Mean Corpuscular Hemoglobin Concent 36 32-36 G/DL Red Cell Distribution Width 13.2 10.0-14.5 % Platelet Count 181 130-400 10^3/uL Mean Platelet Volume 9.9 7.4-10.4 FL Neutrophils (%) (Auto) 48 42-75 % Lymphocytes (%) (Auto) 38 12-44 % Monocytes (%) (Auto) 9 0-12 % Eosinophils (%) (Auto) 5 0-10 % Basophils (%) (Auto) 1 0-10 % Neutrophils # (Auto) 3.4 1.8-7.8 X 10^3 Lymphocytes # (Auto) 2.7 1.0-4.0 X 10^3 Monocytes # (Auto) 0.6 0.0-1.0 X 10^3 Eosinophils # (Auto) 0.4 H 0.0-0.3 10^3/uL Basophils # (Auto) 0.0 0.0-0.1 10^3/uL Sodium Level 137 135-145 MMOL/L Potassium Level 4.1 3.6-5.0 MMOL/L Chloride Level 103 98-107 MMOL/L Carbon Dioxide Level 22 21-32 MMOL/L Anion Gap 12 5-14 MMOL/L Blood Urea Nitrogen 7 7-18 MG/DL Creatinine 0.81 0.60-1.30 MG/DL Estimat Glomerular Filtration Rate > 60 BUN/Creatinine Ratio 9 Glucose Level 73 70-105 MG/DL Calcium Level 10.2 H 8.5-10.1 MG/DL Corrected Calcium 9.9 8.5-10.1 MG/DL Total Bilirubin 0.9 0.1-1.0 MG/DL Aspartate Amino Transf (AST/SGOT) 30 5-34 U/L Alanine Aminotransferase (ALT/SGPT) 38 0-55 U/L Alkaline Phosphatase 77 40-136 U/L Total Protein 7.6 6.4-8.2 GM/DL Albumin 4.4 3.2-4.5 GM/DL Monoscreen NEGATIVE NEGATIVE Micro Results Microbiology 05/19/18 Influenza Types A,B Antigen (GRADY) - Final, Complete My Orders Orders - REBA WRIGHT DO Influenza A And B Antigens (05/19/18 20:45) Accucheck Stat ONCE (05/19/18 20:49) Saline Lock/Iv-Start (05/19/18 20:49) Monitor-Rhythm Ecg Trace Only (05/19/18 20:49) Cbc With Automated Diff (05/19/18 20:49) Comprehensive Metabolic Panel (05/19/18 20:49) Lactic Acid Analyzer (05/19/18 20:49) Monotest (05/19/18 20:49) Rapid Strep A Screen (05/19/18 20:49) Ua Culture If Indicated (05/19/18 20:49) Blood Culture (05/19/18 20:49) Chest Pa/Lat (2 View) (05/19/18 20:49) Vital Signs/I&O 05/19/18 05/19/18 20:44 20:44 Temp 98.1 Pulse 72 Resp 20 B/P (MAP) 132/78 (96) Pulse Ox 100 O2 Delivery Room Air Capillary Refill : Less Than 3 Seconds Blood Pressure Mean: 96 Diagnostic Imaging Comments CXR--NO ACUTE PROCESS, PENDING RADIOLOGIST REVIEW Reviewed: Reviewed by Me Departure Impression Primary Impression: Upper respiratory infection Disposition: 01 HOME, SELF-CARE Condition: Stable Departure-Patient Inst. Referrals: [facility] (PCP/Family) Primary Care Physician Patient Instructions: Bacterial Upper Respiratory Infection, Adult (DC) Add. Discharge Instructions: LOTS OF CLEAR LIQUDS TYLENOL 1 GRAM/ MOTRIN 800 MG 4 TIMES A DAY FOR PAIN ORE FEVER FOLLOW UP WITH YOUR DR IN 3-4 DAYS IF NO BETTER All discharge instructions reviewed with patient and/or family. Voiced understanding. Scripts Fluticasone Propionate (Flonase Allergy Relief) 9.9 Ml [place].susp 2 SPRAYS NS BID, #1 SPRAY Prov: REBA WRIGHT DO 05/19/18 Guaifenesin/Dextromethorphan (Mucinex Dm ER 1,200-60 mg Tab) 1 Each Tbmp.12hr 1 EACH PO BID for 10 Days, #20 EA Prov: REBA WRIGHT DO 05/19/18 Amoxicillin/Potassium Clav (Augmentin 875-125 Tablet) 1 Each Tablet 1 EACH PO BID for INFECTION, #20 TAB Prov: REBA WRIGHT DO 05/19/18 REBA WRIGHT DO May 19, 2018 21:03
[2018-05-19 21:09] LABS: BILIRUBIN,URINE NEGATIVE (NEGATIVE); CLARITY,URINE CLEAR; COLOR,URINE YELLOW; GLUCOSE, URINE (UA) NEGATIVE (NEGATIVE); KETONES,URINE NEGATIVE (NEGATIVE); LEUKOCYTE ESTERASE ,URINE NEGATIVE (NEGATIVE); NITRITE,URINE NEGATIVE (NEGATIVE); PH,URINE 5 (5-9); PROTEIN,URINE NEGATIVE (NEGATIVE); UROBILINOGEN,URINE NORMAL (NORMAL)
[2018-05-19 21:10] LABS: BASOPHILS % (AUTO) 1 % (0-10); EOSINOPHILS # (AUTO) 0.4 10^3/uL (0.0-0.3); EOSINOPHILS % (AUTO) 5 % (0-10); HEMATOCRIT 39 % (35-52); LYMPHOCYTES # (AUTO) 2.7 X 10^3 (1.0-4.0); LYMPHOCYTES % (AUTO) 38 % (12-44); MEAN CORPUSCULAR HEMOGLOBIN 31 PG (25-34); MEAN CORPUSCULAR HGB CONC 36 G/DL (32-36); MEAN CORPUSCULAR VOLUME 86 FL (80-99); MEAN PLATELET VOLUME 9.9 FL (7.4-10.4); MONOCYTES # (AUTO) 0.6 X 10^3 (0.0-1.0); MONOCYTES % (AUTO) 9 % (0-12); NEUTROPHILS # (AUTO) 3.4 X 10^3 (1.8-7.8); NEUTROPHILS % (AUTO) 48 % (42-75); PLATELET COUNT 181 10^3/uL (130-400); RED BLOOD COUNT 4.54 10^6/uL (4.35-5.85); RED CELL DISTRIBUTION WIDTH 13.2 % (10.0-14.5); WHITE BLOOD COUNT 7.1 10^3/uL (4.3-11.0)
[2018-05-19 21:20] LABS: BACTERIA,URINE TRACE /HPF; WBC,URINE RARE /HPF
[2018-05-19 21:27] LABS: ALANINE AMINOTRANSFERASE 38 U/L (0-55); ALBUMIN 4.4 GM/DL (3.2-4.5); ALKALINE PHOSPHATASE 77 U/L (40-136); BILIRUBIN,TOTAL 0.9 MG/DL (0.1-1.0); BUN/CREATININE RATIO 9; CALCIUM 10.2 MG/DL (8.5-10.1); CARBON DIOXIDE 22 MMOL/L (21-32); CHLORIDE 103 MMOL/L (98-107); CREATININE SERUM 0.81 MG/DL (0.60-1.30); GFR ESTIMATED > 60; GLUCOSE 73 MG/DL (70-105); POTASSIUM 4.1 MMOL/L (3.6-5.0); SODIUM 137 MMOL/L (135-145); TOTAL PROTEIN 7.6 GM/DL (6.4-8.2)
[2018-05-19] MEDS ORDERED: GUAI1TBM19 PO (21:45)
[2018-05-19] MEDS ORDERED: cefTRIAXone FOR IV USE 1,000 MG in NS (IVPB) 50 ML IV ONE (21:45)
[2018-05-19] MEDS ORDERED: AMOX-358 PO (21:45)
[2018-05-19] MEDS ORDERED: FLUT9.9S NS (21:45)
--- NOTE | 2018-05-19 21:51 | Diagnostic Imaging Report ---
Indication: Cough and congestion for 2 days EXAMINATION: PA and lateral views of the chest. FINDINGS: The heart size and vascularity are normal. Lungs are clear. There is no effusion. There is no acute bony abnormality. IMPRESSION: No acute abnormality is seen. There is no change from 09/05/2017. Dictated by: Dictated on workstation # [id number]
[2018-05-19] MEDS ORDERED: cefTRIAXone 1 GM/10 ML for IV (ROCEPHIN) ONE (21:52)
[2018-05-19] MEDS ORDERED: NS (IVPB) 50 ML ONE (21:53)
[2018-05-19 22:33] VITALS: BP 132/84
== END 2018-05-19 22:33 | disposition home or self-care (01) ==
LOC: EDUNIT# 20:35 → ER 20:36
DX: J06.9 Acute upper respiratory infection, unspecified (principal); J45.909 Unspecified asthma, uncomplicated; E78.00 Pure hypercholesterolemia, unspecified; I10 Essential (primary) hypertension; G43.909 Migraine, unspecified, not intractable, without status migrainosus; E66.9 Obesity, unspecified; E11.9 Type 2 diabetes mellitus without complications; F41.9 Anxiety disorder, unspecified; F31.9 Bipolar disorder, unspecified; K21.9 Gastro-esophageal reflux disease without esophagitis; Z87.19 Personal history of other diseases of the digestive system; Z87.442 Personal history of urinary calculi; Z87.448 Personal history of other diseases of urinary system; Z68.41 Body mass index [BMI] 40.0-44.9, adult; Z88.0 Allergy status to penicillin; Z88.6 Allergy status to analgesic agent; Z88.8 Allergy status to other drugs, medicaments and biological substances; Z79.51 Long term (current) use of inhaled steroids; Z79.84 Long term (current) use of oral hypoglycemic drugs; Z79.52 Long term (current) use of systemic steroids; Z90.710 Acquired absence of both cervix and uterus; Z90.89 Acquired absence of other organs; Z98.890 Other specified postprocedural states; Z94.5 Skin transplant status
CPT/HCPCS: 36415; 71046; 80053; 81000; 82962; 85025; 86308; 87430; 87804; 93041; 96365

== ENCOUNTER 2019-09-28 14:51 | Outpatient (RCR) | payer BC ==
[~2019-09-28 14:51] MED LIST changes: +FLUT9.9S NS; +GUAI1TBM19 PO; -MONT10TA24; +MONT10TA26; -OMEP20CA12; +OMEP20CA18; -RANI-515 PO; +RANI-609 PO; -TAMS0.4C98 PO; +TMSL.4C PO
== END 2019-12-27 | disposition home or self-care (01) ==
LOC: CARD 14:51
PROVIDERS: ATTEND Physician Assistant
DX: I10 Essential (primary) hypertension (principal); E78.5 Hyperlipidemia, unspecified; G47.33 Obstructive sleep apnea (adult) (pediatric); R00.2 Palpitations
CPT/HCPCS: 93225; 93226

== ENCOUNTER 2021-04-14 13:39 | Emergency (ER) | payer BC, OTHER ==
[~2021-04-14] VITALS: Ht 160 cm; Wt 99.0 kg
[~2021-04-14 13:39] MED LIST changes: -CIPR500T4 PO; +CIPR500T5 PO; -CLIN300C11 PO; +CLIN300C12 PO; +DOXY-311 PO; -DOXY100C42 PO; -ESCI5TAB12 PO; +ESCI5TAB16 PO; -LISI-552 PO; -LISI10TA2; +LISI10TA25; +LISI20TA26 PO; -MONT10TA26; +MONT10TA32; -RISP1TAB3 PO; +RISP1TAB93 PO; -SULF1TAB35 PO
[2021-04-14 13:53] VITALS: BP 142/93
[2021-04-14] MEDS ORDERED: ORPHENADRINE 60 MG/2 ML (NORFLEX) AMP (ED ONLY) IM ONE (14:00)
[2021-04-14] MEDS ORDERED: KETOROLAC 60 MG/2 ML VIAL IM ONE (14:00)
[2021-04-14] MEDS ORDERED: METH-732 PO (14:09)
[2021-04-14] MEDS ORDERED: PRD20T PO (14:09)
--- NOTE | 2021-04-14 14:10 | ED Lower Extremity ---
General Stated Complaint: R LEG/HIP PAIN Source: patient Exam Limitations: no limitations (BETHANY PRIETO APRN) History of Present Illness Date Seen by Provider: Apr 14, 2021 Time Seen by Provider: 13:55 Initial Comments To ER with right hip and leg pain for 1 week that got worse today after she slipped on a slick floor at her home landing on the right buttock. No loss of bowel or bladder control no loss of sensation of her genitals no fever or chills. No initial injury Onset: just prior to arrival Severity: moderate Pain/Injury Location: right hip, right leg Method of Injury: unknown Modifying Factors: Worse With Movement (BETHANY PRIETO APRN) Allergies and Home Medications Allergies Coded Allergies: azithromycin (Verified Allergy, Unknown, 09/05/16) aspirin (Verified Adverse Reaction, Intermediate, VOMITING, 09/05/16) acetaminophen (Unverified Adverse Reaction, Unknown, 09/05/16) PT IS NOT SUPPOSE TO TAKE TYLENOL DUE TO LIVER DISEASE Patient Home Medication List Home Medication List Reviewed: Yes (BETHANY PRIETO APRN) Albuterol Sulfate (Ventolin Hfa) 1 Puff Puff, 2 PUFF IH Q4H PRN for SHORTNESS OF BREATH Prescribed by: KARLOS OCONNOR on 09/05/17348 Alprazolam (Xanax) 1 Mg Tablet, 1 MG PO TID, (Reported) Entered as Reported by: ERNA OJEDA on 10/06/132031 Amoxicillin/Potassium Clav (Augmentin 875-125 Tablet) 1 Each Tablet, 1 EACH PO BID Prescribed by: REBA WRIGHT on 05/19/182144 Benzonatate (Tessalon Perles) 100 Mg Capsule, 100 MG PO Q6H PRN for COUGH Prescribed by: KARLOS OCONNOR on 09/05/17348 Clindamycin HCl (Clindamycin HCl) 300 Mg Capsule, 300 MG PO QID Prescribed by: RANDAL WALSH on 02/16/18 0019 Escitalopram Oxalate (Escitalopram Oxalate) 5 Mg Tablet, 5 MG PO, (Reported) Entered as Reported by: YARITZA ACHARYA on 05/01/17 190 Fluticasone Propionate (Flonase Allergy Relief) 9.9 Ml Bend.susp, 2 SPRAYS NS BID Prescribed by: REBA WRIGHT on 05/19/182144 Guaifenesin/Dextromethorphan (Mucinex Dm ER 1,200-60 mg Tab) 1 Each Tbmp.12hr, 1 EACH PO BID Prescribed by: REBA WRIGHT on 05/19/182144 Lisinopril (Lisinopril) 10 Mg Tablet, 10, (Reported) Entered as Reported by: YAJAIRA ACHARYA on 05/07/17 0808 Metformin HCl (Metformin HCl) 1,000 Mg Tablet, 1,000 MG PO BID, (Reported) Entered as Reported by: ALIN ONEIL on 09/05/16 1415 Methocarbamol (Methocarbamol) 750 Mg Tablet, 1,500 MG PO Q6-8HR Prescribed by: BETHANY PRIETO on 04/14/21 140 Metoprolol Tartrate (Metoprolol Tartrate) 25 Mg Tablet, 25 DAILY, (Reported) Entered as Reported by: YAJAIRA ACHARYA on 05/07/17 0808 Montelukast Sodium (Montelukast Sodium) 10 Mg Tablet, (Reported) Entered as Reported by: ERWIN VERDUGO on 07/15/17 112 Omeprazole (Omeprazole) 20 Mg Capsule.dr, (Reported) Entered as Reported by: ERWIN VERDUGO on 07/15/17 1121 Ondansetron (Zofran Odt) 4 Mg Tab.rapdis, (Reported) Entered as Reported by: ERWIN VERDUGO on 07/15/17 1121 Ondansetron (Zofran Odt) 4 Mg Tab.rapdis, 4 MG SL Q4H PRN for NAUSEA/VOMITING- 1ST LINE Prescribed by: RANDAL WALSH on 11/05/17 0150 Pantoprazole Sodium (Protonix) 40 Mg Tablet.dr, 40 MG PO DAILY Prescribed by: MAG TAMEZ on 09/09/16 1159 Prednisone (Prednisone) 20 Mg Tab, 20 MG PO BID Prescribed by: KARLOS OCONNOR on 09/05/17 0459 Prednisone (Prednisone) 20 Mg Tab, 40 MG PO DAILY Prescribed by: BETHANY PRIETO on 04/14/21 1409 Risperidone (Risperidone) 1 Mg Tablet, 1 TAB PO UD, (Reported) Entered as Reported by: LUIS E CASTILLO on 08/07/16 2102 Sucralfate (Carafate) 1 Gm/10 Ml Oral.susp, 1 GM PO QID Prescribed by: RANDAL WALSH on 11/05/17 0150 Tramadol HCl (Ultram) 50 Mg Tablet, 50 MG PO Q6H PRN for PAIN-MODERATE TO SEVERE Prescribed by: RANDAL WALSH on 02/16/18 0019 Review of Systems Constitutional: see HPI EENTM: see HPI Respiratory: no symptoms reported Cardiovascular: no symptoms reported Genitourinary: no symptoms reported Musculoskeletal: see HPI Skin: no symptoms reported Psychiatric/Neurological: No Symptoms Reported (BETHANY PRIETO APRN) Past Hgbmvrz-Qaliow-Ccpbhl Hx Immunizations Up To Date Tetanus Booster (TDap): Less than 5yrs (BETHANY PRIETO APRN) Seasonal Allergies Seasonal Allergies: Yes (BETHANY PRIETO APRN) Past Medical History Surgeries: Yes (SKIN GRAFTS FOR GREWAL, D&C, LAPAROSCOPY, ABSCESS I&D; HYST/BSO) Adenoidectomy, Appendectomy, Section, Hysterectomy, Oophorectomy, Tonsillectomy Respiratory: Yes Asthma Currently Using CPAP: Yes Currently Using BIPAP: No Cardiac: Yes Heart Murmur, High Cholesterol, Hypertension Neurological: Yes Headaches /Migraines Reproductive Disorders: No Female Reproductive Disorders: Menstrual Problems, Ovarian Cyst [employer] History: Hysterectomy Sexually Transmitted Disease: No HIV/AIDS: No Genitourinary: Yes Kidney Stones, UTI-Chronic Gastrointestinal: Yes Gastroesophageal Reflux, Liver Disease/Jaundice, Ulcer Musculoskeletal: Yes (RESTLESS LEG SYNDROME, SCIATICA) Degenerate Disk Disease, Arthritis, Chronic Back Pain Endocrine: Yes (HYPER PARATHYROID DISEASE, OBESITY) Parathyroid Disease, Diabetes, Non-Insulin dep HEENT: No Loss of Vision: Bilateral Hearing Impairment: Denies Cancer: No Psychosocial: Yes Anxiety, Bipolar, Depression Integumentary: Yes (SKIN GRAFTS FOR GREWAL) Blood Disorders: No Adverse Reaction/Blood Tranf: No (BETHANY PRIETO APRN) Family Medical History No Pertinent Family Hx (BETHANY PRIETO APRN) Physical Exam Vital Signs Vital Signs - First Documented 04/14/21 13:53 Temp 36.3 Pulse 77 Resp 18 B/P (MAP) 142/93 (109) Pulse Ox 96 O2 Delivery Room Air (KYLEREBA K DO) Vital Signs Capillary Refill : (BETHANY PRIETO APRN) Height, Weight, BMI Height: 5'3.00" Weight: 245lbs. 0.0oz. [id number]; 43.8 BMI Method:Stated General Appearance: WD/WN, no apparent distress, obese Respiratory: no respiratory distress, no accessory muscle use Hips: bilateral hip non-tender, bilateral hip normal inspection, bilateral hip normal range of motion Legs: bilateral leg non-tender, bilateral leg normal inspection, bilateral leg normal range of motion Knees: bilateral knee non-tender, bilateral knee normal inspection, bilateral knee normal range of motion Ankles: bilateral ankle non-tender, bilateral ankle normal inspection, bilateral ankle normal range of motion Feet: bilateral foot non-tender, bilateral foot normal inspection, bilateral foot normal range of motion, bilateral foot other (Her clinical exam is inconsistent. She walks without foot drop but when lying supine in bed and asked to dorsiflex and plantar flex the right foot it is completely flaccid and she reports being unable to do this. She has a strong dorsalis pedis pulse. Leg has a normal appearance without swelling or obvious atrophy.) Neurologic/Psychiatric: alert, normal mood/affect, oriented x 3 Skin: normal color, warm/dry (BETHANY PRIETO APRN) Progress/Results/Core Measures Results/Orders Vital Signs/I&O 04/14/21 13:53 Temp 36.3 Pulse 77 Resp 18 B/P (MAP) 142/93 (109) Pulse Ox 96 O2 Delivery Room Air (REBA WRIGHT DO) Departure Communication (Admissions) The plain films report a new calcification lateral to the L5 transverse process and states this could be small business representative of a ureteral stone. However the patient's pain and symptoms are not consistent with ureteral stone. Pain starts in the right hip and goes down the right leg to the right foot. This is a lumbar radiculopathy. She may certainly have a right ureteral stone but it is asymptomatic and only 3.4 mm on plain films so if it is small business representative of a stone it should pass on its own without intervention. She does not have fevers chills abdominal pain nausea vomiting. I am able to see this on CT imaging from 2015. At that time it was lateral to the ureter not within the ureter and this is most likely a phlebolith. 1455-when I am discussing with her the treatment plan of steroids and muscle relaxers and a few days off work without assessing her foot and while distracted she is noted to be dorsiflexing her foot and toes and plantar flexing her foot and toes. Exam is again inconsistent. NAME: JONATHAN URIBE [facility] REC#: [id number] PT STATUS: REG ER : 1980 PHYSICIAN: BETHANY PRIETO APRN ADMIT DATE: 04/14/21/ER Draft Date of Exam:04/14/21 PELVIS INDICATION: Pain COMPARISON: Imaging from same date as well as from 11/12/2008. TECHNIQUE: Single radiograph of the pelvis dated 04/14/2021. FINDINGS: No acute fracture or dislocation. No destructive osseous process. The bilateral hip joints are well maintained. The sacroiliac joints are intact. Mild degenerative changes in the pubic symphysis. A 3.4 mm calcification is noted to the right aspect of the L5 right transverse process, which is new from the prior examination. IMPRESSION: No acute osseous abnormalities with mild degenerative changes in the pubic symphysis. New round calcification lateral to the right L5 transverse process. This is nonspecific and could simply relate to a phlebolith or enteric contents. Alternatively, this could relate to a right-sided ureterolith. Recommend clinical correlation. This could be further evaluated with renal ultrasound or CT as clinically indicated. Dictated on workstation # [id number] Dict: 04/14/21 1421 Trans: 04/14/[address] [facility] [id number] Interpreted by: MEET CARRERO MD Electronically signed by: (BETHANY PRIETO APRN) Impression Primary Impression: Lumbar radiculopathy, acute Disposition: 01 HOME, SELF-CARE Condition: Stable Departure-Patient Inst. Decision time for Depature: 14:08 (BETHANY PRIETO APRN) Referrals: [facility] (PCP/Family) Primary Care Physician Patient Instructions: Radiculopathy Add. Discharge Instructions: 1. Medication as directed. If pain persists then follow-up with your family doctor this week for further evaluation. Scripts Methocarbamol (Methocarbamol) 750 Mg Tablet 1500 MG PO Q6-8HR for Back Pain, #14 TAB Prov: BETHANY PRIETO APRN 04/14/21 Prednisone (Prednisone) 20 Mg Tab 40 MG PO DAILY, #8 TAB 0 Refills Prov: BETHANY PRIETO APRN 04/14/21 Work/School Note: Work Release Form Date Seen in the Emergency Department: Apr 14, 2021 Return to Work: Apr 17, 2021 ATTENDING PHYSICIAN NOTE: I WAS PHYSICALLY PRESENT ER PHYSICIAN WHEN THIS PATIENT WAS IN ER, BUT I WAS NOT INVOLVED IN DECISION MAKING OR ANY CARE OF THIS PATIENT (REBA WRIGHT DO) BETHANY PRIETO APRN Apr 14, 2021 14:10 REBA WRIGHT DO Apr 16, 2021 14:59
--- NOTE | 2021-04-14 14:25 | Diagnostic Imaging Report ---
Indication: Low back pain. Comparison: None. Discussion: Three views of the lumbosacral spine were obtained. Moderate degenerative disc disease at L5-S1. Alignment is anatomic. No fracture or subluxation. Sacroiliac joints are maintained. Soft tissues are unremarkable. Impression: 1. Moderate L5-S1 degenerative disc disease. Dictated by: Dictated on workstation # [id number]
--- NOTE | 2021-04-14 14:26 | Diagnostic Imaging Report ---
INDICATION: Pain COMPARISON: Imaging from same date as well as from 11/12/2008. TECHNIQUE: Single radiograph of the pelvis dated 04/14/2021. FINDINGS: No acute fracture or dislocation. No destructive osseous process. The bilateral hip joints are well maintained. The sacroiliac joints are intact. Mild degenerative changes in the pubic symphysis. A 3.4 mm calcification is noted to the right aspect of the L5 right transverse process, which is new from the prior examination. IMPRESSION: No acute osseous abnormalities with mild degenerative changes in the pubic symphysis. New round calcification lateral to the right L5 transverse process. This is nonspecific and could simply relate to a phlebolith or enteric contents. Alternatively, this could relate to a right-sided ureterolith. Recommend clinical correlation. This could be further evaluated with renal ultrasound or CT as clinically indicated. Dictated by: Dictated on workstation # [id number]
== END 2021-04-14 14:55 | disposition home or self-care (01) ==
LOC: EDUNIT# 13:39 → ER 13:42
DX: M54.16 Radiculopathy, lumbar region (principal); J45.909 Unspecified asthma, uncomplicated; I10 Essential (primary) hypertension; E66.9 Obesity, unspecified; K21.9 Gastro-esophageal reflux disease without esophagitis; F41.9 Anxiety disorder, unspecified; F31.9 Bipolar disorder, unspecified; E11.9 Type 2 diabetes mellitus without complications; Z68.41 Body mass index [BMI] 40.0-44.9, adult; Z79.84 Long term (current) use of oral hypoglycemic drugs; Z79.899 Other long term (current) drug therapy
CPT/HCPCS: 72100; 72170